=== PATIENT | male | born 1960 | race Caucasian/White ===

== ENCOUNTER 2017-07-05 14:29 | Inpatient (IN) | payer MEDICARE ==
[~2017-07-05] VITALS: Ht 188 cm; Wt 98.6 kg
[2017-07-05 14:48] VITALS: BP 121/73; PULSE 108; RESP 20; RESP 22; TEMP 98.1; O2SAT 95
[2017-07-05] MEDS ORDERED: FOLI400T PO (15:01)
[2017-07-05] MEDS ORDERED: ZANT150T2 PO (15:01)
[2017-07-05] MEDS ORDERED: FURO1TAB60 PO (15:01)
[2017-07-05] MEDS ORDERED: NADO20TA PO (15:01)
[2017-07-05] MEDS ORDERED: ASPI-516 PO (15:01)
[2017-07-05] MEDS ORDERED: SPIR50TA PO (15:01)
[2017-07-05] MEDS ORDERED: LAMO200T PO (15:01)
[2017-07-05] MEDS ORDERED: CHOL1CAP34 PO (15:01)
[2017-07-05] MEDS ORDERED: LACT10SO PO (15:01)
[2017-07-05] MEDS ORDERED: ZOFR4TAB PO (15:01)
[2017-07-05 15:10] VITALS: RESP 22; O2SAT 98
--- NOTE | 2017-07-05 15:14 | PD ---
HPI Chief Complaint: Altered Mental Status Time Seen by Provider: 14:49 Travel History International Travel<30 days: No Contact w/Intl Traveler<30days: No Traveled to known affect area: No History of Present Illness HPI [facility] for altered mental status. Duration one day. Severity is moderate to severe at times. He's had no fall or injury. No alleviating factors. Symptoms possibly exacerbated by his alcoholic cirrhosis. He does have history of elevated ammonia levels causing mental status change according to his who is at bedside. Patient is too confused to provide any history or review of systems. Was hospitalized for 2 solid months at [facility] up until 2 days ago when [facility] was [facility]. says his mental status yesterday was normal PFSH Past Medical History Diminished Hearing: No Gastrointestinal Disorders: Yes (CIRRHOSIS) Medical other: Yes (LIVER DISEASE) Tetanus Vaccination: < 5 Years Influenza Vaccination: Yes Past Surgical History Abdominal Surgery: Yes (HERNIA REPAIR) Social History Alcohol Use: No (HX ALCOHOL ABUSE ) Tobacco Use: No (30 YEARS AGO) Substance Use: Yes Allergies-Medications (Allergen,Severity, Reaction): Coded Allergies: No Known Allergies (Verified Allergy, Unknown, 07/05/17) Reported Meds & Prescriptions Reported Meds & Active Scripts Active Reported Lactulose Liq (Lactulose) 10 Gm/15 Ml Soln 30 Ml PO Q6H PRN Zantac (Ranitidine HCl) 150 Mg Tab 150 Mg PO DAILY Spironolactone 50 Mg Tab 50 Mg PO BIDPC Lamotrigine 200 Mg Tab 200 Mg PO HS Vitamin D3 (Cholecalciferol) 50,000 Unit Cap 50,000 Units PO Q7D Lasix (Furosemide) 40 Mg Tab 40 Mg PO DAILY Aspirin 81 Mg Chew 81 Mg PO DAILY Nadolol 20 Mg Tab 20 Mg PO DAILY Folic Acid 0.4 Mg Tab 1,000 Mcg PO DAILY Review of Systems General / Constitutional: No: Fever Eyes: No: Visual changes HENT: No: Headaches Cardiovascular: Positive: Edema, No: Chest Pain or Discomfort Respiratory: No: Shortness of Breath Gastrointestinal: No: Abdominal Pain Genitourinary: No: Dysuria Musculoskeletal: Positive: Weakness, Edema, No: Pain Skin: No Rash Neurologic: Positive: Weakness, Change in Mentation, Slurred Speech Psychiatric: No: Depression Endocrine: No: Polydipsia Hematologic/Lymphatic: No: Easy Bruising Physical Exam Narrative GENERAL: Well-nourished, well-developed patient in no apparent distress. SKIN: Focused skin assessment reveals no rash and nodules. Skin is Warm and dry. HEAD: Atraumatic. Normocephalic. EYES: Pupils equal and round. No scleral icterus. No injection or drainage. ENT: No nasal bleeding or discharge. Mucous membranes pink and moist. NECK: Trachea midline. No JVD. No meningeal signs CARDIOVASCULAR: Regular rate and rhythm. No murmur appreciated. RESPIRATORY: No accessory muscle use. Clear to auscultation. Breath sounds equal bilaterally. GASTROINTESTINAL: Abdomen soft, has large easily reducible hernia that is non- tender, nondistended. Hepatic and splenic margins not palpable. Has a small drainage tube in the right lower chest. MUSCULOSKELETAL: No obvious deformities. No clubbing. No cyanosis. Severe pitting edema of the entire legs bilateral and symmetric. He has edema of the penis NEUROLOGICAL: Awake but drowsy and lethargic appearing. No obvious cranial nerve deficits. Motor grossly within normal limits. Normal speech. PSYCHIATRIC: Sedated-appearing mood and flat affect; insight and judgment very poor . Data Data Last Documented VS Vital Signs Date Time Temp Pulse Resp B/P (MAP) Pulse Ox O2 Delivery O2 Flow Rate FiO2 07/05/17 16:29 97.9 83 20 121/73 (89) 99 Nasal Cannula 2.00 Orders Orders Ammonia (07/05/17 15:04) Complete Blood Count With Diff (07/05/17 15:04) Comprehensive Metabolic Panel (07/05/17 15:04) Thyroid Stimulating Hormone (07/05/17 15:04) Urinalysis - C+S If Indicated (07/05/17 15:04) Chest, Single Ap (07/05/17 15:04) Ct Brain W/O Iv Contrast(Rout) (07/05/17 15:04) Blood Glucose (07/05/17 15:04) Ecg Monitoring (07/05/17 15:04) Iv Access Insert/Monitor (07/05/17 15:04) Cath For Specimen (07/05/17 15:04) Oximetry (07/05/17 15:04) Sodium Chloride 0.9% Flush (Ns Flush) (07/05/17 15:15) Drug Screen, Random Urine (07/05/17 15:04) Alcohol (Ethanol) (07/05/17 15:04) Urine Culture (07/05/17 15:15) Labs Laboratory Tests Test 07/05/17 15:11 07/05/17 15:15 Ammonia 74 MCMOL/L White Blood Count 17.0 TH/MM3 Red Blood Count 2.70 MIL/MM3 Hemoglobin 10.4 GM/DL Hematocrit 31.1 % Mean Corpuscular Volume 115.3 FL Mean Corpuscular Hemoglobin 38.7 PG Mean Corpuscular Hemoglobin Concent 33.6 % Red Cell Distribution Width 16.7 % Platelet Count 134 TH/MM3 Mean Platelet Volume 7.8 FL Neutrophils (%) (Auto) 74.3 % Lymphocytes (%) (Auto) 9.4 % Monocytes (%) (Auto) 15.1 % Eosinophils (%) (Auto) 1.0 % Basophils (%) (Auto) 0.2 % Neutrophils # (Auto) 12.6 TH/MM3 Lymphocytes # (Auto) 1.6 TH/MM3 Monocytes # (Auto) 2.6 TH/MM3 Eosinophils # (Auto) 0.2 TH/MM3 Basophils # (Auto) 0.0 TH/MM3 CBC Comment AUTO DIFF Differential Total Cells Counted 100 Neutrophils % (Manual) 75 % Band Neutrophils % 12 % Lymphocytes % 3 % Monocytes % 8 % Eosinophils % 2 % Neutrophils # (Manual) 14.8 TH/MM3 Differential Comment FINAL DIFF MANUAL Toxic Granulation 1+ Platelet Estimate LOW Platelet Morphology Comment NORMAL Spherocytes 1+ Ovalocytes 2+ [place] Cells 1+ Acanthocytes 1+ Urine Color BROWN Urine Turbidity HAZY Urine pH 6.0 Urine Specific [place] 1.028 Urine Protein 30 mg/dL Urine Glucose (UA) NEG mg/dL Urine Ketones NEG mg/dL Urine Occult Blood SMALL Urine Nitrite NEG Urine Bilirubin MOD Urine Urobilinogen 2.0 MG/DL Urine Leukocyte Esterase SMALL Urine RBC 21 /hpf Urine WBC 9 /hpf Urine Squamous Epithelial Cells <1 /hpf Urine Hyaline Casts 76 /lpf Urine Mucus FEW /lpf Microscopic Urinalysis Comment CULTURE INDICATED Blood Urea Nitrogen 28 MG/DL Creatinine 1.06 MG/DL Random Glucose 137 MG/DL Total Protein 5.0 GM/DL Albumin 2.1 GM/DL Calcium Level 8.0 MG/DL Alkaline Phosphatase 276 U/L Aspartate Amino Transf (AST/SGOT) 63 U/L Alanine Aminotransferase (ALT/SGPT) 89 U/L Total Bilirubin 6.9 MG/DL Sodium Level 135 MEQ/L Potassium Level 4.4 MEQ/L Chloride Level 102 MEQ/L Carbon Dioxide Level 25.0 MEQ/L Anion Gap 8 MEQ/L Estimat Glomerular Filtration Rate 73 ML/MIN Thyroid Stimulating Hormone 3rd Gen 2.360 uIU/ML Ethyl Alcohol Level LESS THAN 3 MG/DL MDM Medical Decision Making Medical Screen Exam Complete: Yes Emergency Medical Condition: Yes Medical Record Reviewed: Yes Differential Diagnosis Hepatic encephalopathy, electrolyte abnormality, UTI Narrative Course I have reviewed the patient's electronic medical record. Reviewed his [facility] paperwork including medication list I've ordered extensive altered mental status workup IV placed CBC shows some leukocytosis Metabolic profile shows minor abnormalities LFTs show some minor elevations TSH is normal Alcohol level is negative Tox screen is negative Urinalysis will be cultured but not suspicious for the cause of his problems here Brain CT is negative I reviewed his chest x-ray shows a massive right sided pleural effusion which is his chronic. We are working on getting the proper drainage equipment for his indwelling drainage tube so we can drain some pleural effusion out of it. Ammonia level is 74 Patient's mental status is poor and he is far too altered for safe discharge However this is a flareup of a waxing and waning chronic issue He is DNR and has considered hospice in the past I reviewed with Dr. Stein who has evaluated the patient and will admit for altered mental status and hepatic encephalopathy and anasarca Diagnosis Primary Impression: Altered mental status, unspecified Qualified Codes: R41.0 - Disorientation, unspecified Additional Impressions: Acute hepatic encephalopathy Anasarca Admitting Information Admitting Physician Requests: Admit Joshua Marvin MD Jul 05, 2017 15:14
[2017-07-05] MEDS ORDERED: SODIUM CHLORIDE 0.9% FLUSH 10 ML FLUSH IV FLUSH PRN (15:15)
[2017-07-05 15:34] LABS: AUTOMATED NEUTROPHIL # 12.6 TH/MM3 (1.8-7.7); BASOPHIL % 0.2 % (0.0-2.0); EOSINOPHIL # 0.2 TH/MM3 (0-0.4); HEMATOCRIT 31.1 % (39.0-51.0); HEMOGLOBIN 10.4 GM/DL (13.0-17.0); LYMPH % 9.4 % (9.0-44.0); LYMPHOCYTE # 1.6 TH/MM3 (1.0-4.8); MEAN CELL VOLUME 115.3 FL (80.0-100.0); MEAN CORPUSCULAR HEMOGLOBIN 38.7 PG (27.0-34.0); MEAN CORPUSCULAR HGB CONC 33.6 % (32.0-36.0); MEAN PLATELET VOLUME 7.8 FL (7.0-11.0); MONO % 15.1 % (0.0-8.0); MONOCYTE # 2.6 TH/MM3 (0-0.9); NEUT % 74.3 % (16.0-70.0); PLATELET COUNT 134 TH/MM3 (150-450); RED CELL DISTRIBUTION WIDTH 16.7 % (11.6-17.2)
--- NOTE | 2017-07-05 15:47 | RADRPT ---
EXAM DATE/TIME: 07/05/2017 15:15 [facility] COMPARISON: No previous studies available for comparison. INDICATIONS : Short of breath MEDICAL HISTORY : Pneumonia SURGICAL HISTORY : Right chest tube ENCOUNTER: Initial ACUITY: 1 day PAIN SCORE: 0/10 LOCATION: chest FINDINGS: A single portable frontal view of the chest shows complete opacification of the right hemithorax. The heart is shifted slightly towards the patient's left. Left lung is clear. Bony structures are unrema rkable. CONCLUSION: Large right pleural effusion opacifying the entire right hemithorax. Daniel Reyes Jr., MD on July 05, 2017 at 15:35 Board Certified Radiologist. This report was verified electronically.
[2017-07-05 15:55] LABS: ALBUMIN 2.1 GM/DL (3.4-5.0); AST (GOT) 63 U/L (15-37); BLOOD UREA NITROGEN 28 MG/DL (7-18); CHLORIDE 102 MEQ/L (98-107); CREATININE 1.06 MG/DL (0.60-1.30); GLOMERULAR FILTRATION RATE 73 ML/MIN (>89); GLUCOSE,RANDOM 137 MG/DL (74-106); SODIUM (NA) 135 MEQ/L (136-145)
[2017-07-05 16:07] LABS: ALKALINE PHOSPHATASE 276 U/L (45-117); ALT (GPT) 89 U/L (12-78); TOTAL BILIRUBIN ADULT 6.9 MG/DL (0.2-1.0)
[2017-07-05 16:09] LABS: BANDS 12 % (0-6); LYMPHOCYTES 3 % (9-44); MONOCYTES 8 % (0-8); NEUTROPHIL # MANUAL DIFF 14.8 TH/MM3 (1.8-7.7); POLYS (SEG NEUTROPHILS) 75 % (16-70)
[2017-07-05 16:10] LABS: ACANTHOCYTES 1+ (NORMAL); BILIRUBIN, URINE MOD (NEG); BLOOD, URINE SMALL (NEG); BURR CELLS 1+ (NORMAL); GLUCOSE,URINE NEG (NEG); HYALINE CAST, URINE 76 /lpf (RARE); KETONE, URINE NEG (NEG); MUCUS URINE FEW /lpf (OCC); NITRITE,URINE NEG (NEG); OVALOCYTES 2+ (NORMAL); SPHEROCYTES 1+ (NORMAL); SQUAMOUS EPITHELIAL CELL URINE <1 /hpf (0-5); TOXIC GRANULATION 1+ (NORMAL); URINE LEUKOCYTE ESTERASE SMALL (NEG)
[2017-07-05 16:11] LABS: URINE COLOR BROWN (YELLW/STRAW)
[2017-07-05 16:29] VITALS: BP 121/73; PULSE 83; RESP 20; TEMP 97.9; O2SAT 99
--- NOTE | 2017-07-05 16:43 | RADRPT ---
EXAM DATE/TIME: 07/05/2017 16:13 [facility] COMPARISON: No previous studies available for comparison. INDICATIONS : Altered mental status RADIATION DOSE: 32.77 CTDIvol (mGy) MEDICAL HISTORY : Cirrhosis. SURGICAL HISTORY : Hernea repair ENCOUNTER: Initial ACUITY: 1 day PAIN SCALE: 0/10 LOCATION: cranial TECHNIQUE: Multiple contiguous axial images were obtained of the head. Using automated exposure control and adj ustment of the mA and/or kV according to patient size, radiation dose was kept as low as reasonably a chievable to obtain optimal diagnostic quality images. DICOM format image data is available electro nically for review and comparison. FINDINGS: CEREBRUM: The ventricles are normal for age. No evidence of midline shift, mass lesion, hemorrhage or acute in farction. No extra-axial fluid collections are seen. POSTERIOR FOSSA: The cerebellum and brainstem are intact. The 4th ventricle is midline. The cerebellopontine angle i s unremarkable. EXTRACRANIAL: The visualized portion of the orbits is intact. SKULL: The calvaria is intact. No evidence of skull fracture. CONCLUSION: No acute intracranial findings. Zack Javed MD on July 05, 2017 at 16:40 Board Certified Radiologist. This report was verified electronically.
[2017-07-05] MEDS ORDERED: NON-FORMULARY DRUG (Cholecalciferol (Vitamin D3) 50,000 UNITS) PO SCH (18:00)
[2017-07-05] MEDS ORDERED: LACTULOSE SYRUP 20 GM/30 ML CUP PO PRN (18:00)
[2017-07-05] MEDS ORDERED: NON-FORMULARY DRUG (Ondansetron (Zofran) 4 MG) PO PRN (18:00)
[2017-07-05] MEDS ORDERED: ONDANSETRON ODT 4 MG TAB PO PRN (18:15)
--- NOTE | 2017-07-05 18:20 | HHI.HP ---
HPI Service [facility] Hospitalists Primary Care Physician Non-Staff Admission Diagnosis AMS,hepatic encephalopathy,anasarca Chief Complaint: Confusion, attempted to harm self as SNF Travel History International Travel<30 Days: No Contact w/Intl Traveler <30 Da: No Traveled to Known Affected Are: No History of Present Illness This unfortunate 56-year-old male with end-stage liver disease due to alcoholic cirrhosis is sent from the assisted for altered mental status. Patient is somewhat confused due to underlying alcoholic encephalopathy and can't give a reliable history so history is obtained primarily from his who is at bedside and from review of outpatient records. I additionally discussed the case with Dr. Liborio Wright who has been seeing the patient at the assisted this week. Patient reportedly became somewhat violent today trying to harm himself and stated clearly that he wanted to and wanted to kill himself according to Dr. Wright. Patient threw himself against a wall and into the bed and onto the floor. His reportedly had to restrain him and Dr. Wright witnessed the events. Patient was therefore sent to the ER for further evaluation from a psychiatric standpoint and for medical stabilization as appropriate. He's had no fall or injury other than when he threw himself on the floor. There was no head injury or loss of consciousness. Review of outpatient records reveal the patient has been hospitalized multiple times in the last year mostly for hepatic encephalopathy and recurrent pleural effusion with most recent hospitalization lasting approximately a month and a half at [facility] in [place]. He was just discharged from that facility to a local assisted 2 days ago per report. Patient has periods of lucidity interspersed with periods of confusion and some apparent hallucinations. He reportedly has not tried to harm himself before but does realize that he is quite sick and that we may not have a lot to offer him from medical standpoint. As this with he and his both of whom acknowledged his serious condition. When I discussed hospice with them, the became somewhat agitated and tearful and stated that they had "gone down that road before" and did not want hospice at this point. I asked further for clarification and she stated that hospice had talked with her before but that her "had improved some" and so she wanted him to "have a chance at rehabilitation". reports that she is power of admitted attorneys and healthcare surrogate. Review of Systems ROS Limitations: Altered Mental Status Constitutional: COMPLAINS OF: Fatigue, Dizziness Endocrine: COMPLAINS OF: Heat/cold intolerance Respiratory: COMPLAINS OF: Shortness of breath Cardiovascular: COMPLAINS OF: Lower Extremity Edema Gastrointestinal: COMPLAINS OF: Diarrhea Musculoskeletal: COMPLAINS OF: Back pain Integumentary: COMPLAINS OF: Abnormal pigmentation Hematologic/lymphatic: COMPLAINS OF: Bruising Neurologic: COMPLAINS OF: Poor Balance Psychiatric: COMPLAINS OF: Confusion, Depression, Hallucinations, Agitation, Suicidal Ideation Past Family Social History Past Medical History Alcoholism with alcoholic cirrhosis and encephalopathy End-stage liver disease Ascites Chronic edema Esophageal varices Hepatic failure induced neuropathy Sleep apnea Portal hypertension Hyperammonemia Thrombocytopenia Recurrent right pleural effusion Vitamin D deficiency Large umbilical hernia Past Surgical History Ventral hernia repair EGD performed 2014 revealed grade 1 esophageal varices with no bleeding, diffuse gastritis Chest tube placement in latter 2016 Reported Medications Lactulose Liq (Lactulose) 10 Gm/15 Ml Soln 30 Ml PO Q6H PRN Zantac (Ranitidine HCl) 150 Mg Tab 150 Mg PO DAILY Spironolactone 50 Mg Tab 50 Mg PO BIDPC Lamotrigine 200 Mg Tab 200 Mg PO HS Vitamin D3 (Cholecalciferol) 50,000 Unit Cap 50,000 Units PO Q7D Lasix (Furosemide) 40 Mg Tab 40 Mg PO DAILY Aspirin 81 Mg Chew 81 Mg PO DAILY Nadolol 20 Mg Tab 20 Mg PO DAILY Folic Acid 0.4 Mg Tab 1,000 Mcg PO DAILY Allergies: Coded Allergies: No Known Allergies (Verified Allergy, Unknown, 07/05/17) Family History No bleeding disorders or liver failure. Social History Has not drank alcohol in about a month and a half but prior to that was quite a heavy drinker of vodka and various mixed drinks. Reports that he smoked for a short period is use but has not smoked in many years. This is confirmed with his have her outpatient records report that he still smokes and has been so for 1-1/2 years, this is his third marriage. 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 He is somewhat confused at times but at other times is quite lucid and jovial. SKIN: Jaundice, xerotic, ecchymosis noted on forearms and lower extremities. HEAD: Atraumatic. Normocephalic. No temporal or scalp tenderness. EYES: Pupils equal round and reactive. Extraocular motions intact. Positive scleral icterus. ENT: Nose without bleeding, purulent drainage or septal hematoma. Slight macroglossia with apparent Hyperemic tongue. Uvula midline. Airway patent. NECK: Trachea midline. No JVD or lymphadenopathy. Supple, nontender, no meningeal signs. CARDIOVASCULAR: Regular rate and rhythm without murmurs, gallops, or rubs. Distant heart sounds. RESPIRATORY: Diminished breath sounds on the right, good air movement in the lung field on the left with no wheeze or crackle. Chest tube in right chest wall noted. GASTROINTESTINAL: Abdomen soft, moderately distended with apparent ascites and large ventral hernia on the right. No palpable masses. No guarding. Bowel sounds present. MUSCULOSKELETAL: 2-3+ edema bilateral lower extremities up to the lower thigh. No joint tenderness, effusion, or edema noted. No calf tenderness. NEUROLOGICAL: Awake, follows simple commands, confused. Cranial nerves II through XII intact. Decreased sensation to light touch in the feet and lower extremities. Five out of 5 muscle strength in all muscle groups. Speech is somewhat low volume at times but appears clear. Laboratory Laboratory Tests Test 07/05/17 15:11 07/05/17 15:15 Ammonia 74 White Blood Count 17.0 Red Blood Count 2.70 Hemoglobin 10.4 Hematocrit 31.1 Mean Corpuscular Volume 115.3 Mean Corpuscular Hemoglobin 38.7 Mean Corpuscular Hemoglobin Concent 33.6 Red Cell Distribution Width 16.7 Platelet Count 134 Mean Platelet Volume 7.8 Neutrophils (%) (Auto) 74.3 Lymphocytes (%) (Auto) 9.4 Monocytes (%) (Auto) 15.1 Eosinophils (%) (Auto) 1.0 Basophils (%) (Auto) 0.2 Neutrophils # (Auto) 12.6 Lymphocytes # (Auto) 1.6 Monocytes # (Auto) 2.6 Eosinophils # (Auto) 0.2 Basophils # (Auto) 0.0 CBC Comment AUTO DIFF Differential Total Cells Counted 100 Neutrophils % (Manual) 75 Band Neutrophils % 12 Lymphocytes % 3 Monocytes % 8 Eosinophils % 2 Neutrophils # (Manual) 14.8 Differential Comment FINAL DIFF MANUAL Toxic Granulation 1+ Platelet Estimate LOW Platelet Morphology Comment NORMAL Spherocytes 1+ Ovalocytes 2+ Pérez Cells 1+ Acanthocytes 1+ Urine Color BROWN Urine Turbidity HAZY Urine pH 6.0 Urine Specific [place] 1.028 Urine Protein 30 Urine Glucose (UA) NEG Urine Ketones NEG Urine Occult Blood SMALL Urine Nitrite NEG Urine Bilirubin MOD Urine Urobilinogen 2.0 Urine Leukocyte Esterase SMALL Urine RBC 21 Urine WBC 9 Urine Squamous Epithelial Cells <1 Urine Hyaline Casts 76 Urine Mucus FEW Microscopic Urinalysis Comment CULTURE INDICATED Blood Urea Nitrogen 28 Creatinine 1.06 Random Glucose 137 Total Protein 5.0 Albumin 2.1 Calcium Level 8.0 Alkaline Phosphatase 276 Aspartate Amino Transf (AST/SGOT) 63 Alanine Aminotransferase (ALT/SGPT) 89 Total Bilirubin 6.9 Sodium Level 135 Potassium Level 4.4 Chloride Level 102 Carbon Dioxide Level 25.0 Anion Gap 8 Estimat Glomerular Filtration Rate 73 Thyroid Stimulating Hormone 3rd Gen 2.360 Ethyl Alcohol Level LESS THAN 3 Date/Time Source Procedure Growth Status 07/05/17 15:15 Urine Clean Catch Urine Culture Pending Received Result Diagram: 07/05/17 1515 07/05/17 1515 Imaging Last [address] 07/05/17 1504 Signed Impressions: Service Date/Time: June 16:13 - CONCLUSION: No acute intracranial findings. Zack Javed MD Chest X-Ray 07/05/17 1504 Signed Impressions: Service Date/Time: June 15:15 - CONCLUSION: Large right pleural effusion opacifying the entire right hemithorax. MD Penny Ballesteros Jr. VTE Risk Assessment Caprini VTE Risk Assessment: Mod/High Risk (score >= 2) VTE Pharm Contraindication: Coagulopathy,INR elevated Caprini Risk Assessment Model Point Value = 1 Point Value = 2 Point Value = 3 Point Value = 5 Age 41-60 Minor surgery BMI > 25 kg/m2 Swollen legs Varicose veins or History of unexplained or recurrent spontaneous Oral contraceptives or hormone replacement Sepsis (< 1 month) Serious lung disease, including pneumonia (< 1 month) Abnormal pulmonary function Acute myocardial infarction Congestive heart failure (< 1 month) History of inflammatory bowel disease Medical patient at bed rest Age 61-74 Arthroscopic surgery Major open surgery (> 45 min) Laparoscopic surgery (> 45 min) Malignancy Confined to bed (> 72 hours) Immobilizing plaster cast Central venous access Age >= 75 History of VTE Family history of VTE Factor V Leiden Prothrombin [id number] Lupus anticoagulant Anticardiolipin antibodies Elevated serum homocysteine Heparin-induced thrombocytopenia Other congenital or acquired thrombophilia Stroke (< 1 month) Elective arthroplasty Hip, pelvis, or leg fracture Acute spinal cord injury (< 1 month) Prophylaxis Regimen Total Risk Factor Score Risk Level Prophylaxis Regimen 0-1 Low Early ambulation 2 Moderate Order ONE of the following: *Sequential Compression Device (SCD) *Heparin 5000 units SQ BID 3-4 Higher Order ONE of the following medications: *Heparin 5000 units SQ TID *Enoxaparin/Lovenox 40 mg SQ daily (WT < 150 kg, CrCl > 30 mL/min) *Enoxaparin/Lovenox 30 mg SQ daily (WT < 150 kg, CrCl > 10-29 mL/min) *Enoxaparin/Lovenox 30 mg SQ BID (WT < 150 kg, CrCl > 30 mL/min) AND/OR *Sequential Compression Device (SCD) 5 or more Highest Order ONE of the following medications: *Heparin 5000 units SQ TID (Preferred with Epidurals) *Enoxaparin/Lovenox 40 mg SQ daily (WT < 150 kg, CrCl > 30 mL/min) *Enoxaparin/Lovenox 30 mg SQ daily (WT < 150 kg, CrCl > 10-29 mL/min) *Enoxaparin/Lovenox 30 mg SQ BID (WT < 150 kg, CrCl > 30 mL/min) AND *Sequential Compression Device (SCD) Assessment and Plan Problem List: (1) Alcoholic cirrhosis of liver with ascites ICD Codes: K70.31 - Alcoholic cirrhosis of liver with ascites Status: Chronic Plan: We'll attempt to diurese and control portal hypertension as systemic blood pressure allows. Discussed end-of-life issues with patient and his . refuses hospice at this point. She understands that we may not have much more medically to offer her . She is DNR. (2) Hepatic encephalopathy ICD Codes: K72.90 - Hepatic failure, unspecified without coma Status: Chronic Plan: Recurrent issue. As above. Try to lower ammonia level. (3) Pleural effusion associated with hepatic disorder ICD Codes: K76.9 - Liver disease, unspecified; J91.8 - Pleural effusion in other conditions classified elsewhere Status: Chronic Plan: Patient has chest tube in place. We'll have interventional radiology try to access as tube is apparently clog or not functional. (4) Suicidal ideation ICD Codes: R45.851 - Suicidal ideations Status: Acute Plan: Have psychiatry see the patient. He is quite weak. Reportedly tried to harm himself at group home facility today. (5) Altered mental status, unspecified ICD Codes: R41.82 - Altered mental status, unspecified Status: Acute Plan: Recurrent issue. Likely associated with hepatic encephalopathy and hyperammonemia. Continue lactulose. (6) Anasarca ICD Codes: R60.1 - Generalized edema Status: Chronic Plan: Continue medications. Attempt to diurese. May need albumin infusion with furosemide subsequent administration. Code Status DNR Discussed Condition With Patient, his , Dr. Wright and ER provider. Physician Certification 2 Midnight Certification Type: Admission for Inpatient Services Order for Inpatient Services The services are ordered in accordance with Medicare regulations or non- Medicare payer requirements, as applicable. In the case of services not specified as inpatient-only, they are appropriately provided as inpatient services in accordance with the 2-midnight benchmark. Estimated LOS (days): 3 days is the estimated time the patient will need to remain in the hospital, assuming treatment plan goals are met and no additional complications. Post-Hospital Plan: Not yet determined Problem Qualifiers (1) Altered mental status, unspecified: Qualified Codes: R41.0 - Disorientation, unspecified Dada Stein MD PhD Jul 05, 2017 18:20
[2017-07-05] MEDS: SPIRONOLACTONE 50 MG TAB PO SCH (18:22)
[2017-07-05 18:23] VITALS: BP 116/77; PULSE 108; RESP 22; TEMP 98; O2SAT 100
[2017-07-05] MEDS: cefTRIAXone INJ 1,000 MG in SODIUM CHLORIDE 0.9% INJ 100 ML IV SCH (19:55)
[2017-07-05] MEDS: lamoTRIgine 100 MG TAB PO SCH (22:09)
[2017-07-05] MEDS: metroNIDAZOLE 500 MG TAB PO SCH (22:10)
[2017-07-05 23:50] VITALS: BP 109/72; PULSE 106; RESP 16; O2SAT 98
[2017-07-06] VITALS (7 sets, daily range): BP systolic 95–127; BP diastolic 45–74; PULSE 80–109; RESP 14–20; TEMP 96.2–98.2; O2SAT 92–100
[2017-07-06] MEDS: metroNIDAZOLE 500 MG TAB PO SCH ×3 (05:19→21:58)
[2017-07-06 06:41] LABS: ALT (GPT) 76 U/L (12-78); AST (GOT) 53 U/L (15-37); BICARBONATE 28.8 MEQ/L (21.0-32.0); BLOOD UREA NITROGEN 24 MG/DL (7-18); CALCIUM 8.5 MG/DL (8.5-10.1); CHLORIDE 100 MEQ/L (98-107); CREATININE 1.04 MG/DL (0.60-1.30); GLOMERULAR FILTRATION RATE 74 ML/MIN (>89); GLUCOSE,RANDOM 91 MG/DL (74-106); SODIUM (NA) 135 MEQ/L (136-145)
[2017-07-06 06:44] LABS: ALKALINE PHOSPHATASE 242 U/L (45-117); TOTAL BILIRUBIN ADULT 6.9 MG/DL (0.2-1.0); TOTAL PROTEIN 4.6 GM/DL (6.4-8.2)
[2017-07-06 06:47] LABS: AUTOMATED NEUTROPHIL # 10.6 TH/MM3 (1.8-7.7); BASOPHIL % 0.3 % (0.0-2.0); EOSINOPHIL # 0.1 TH/MM3 (0-0.4); HEMATOCRIT 28.8 % (39.0-51.0); HEMOGLOBIN 9.8 GM/DL (13.0-17.0); LYMPH % 10.3 % (9.0-44.0); LYMPHOCYTE # 1.5 TH/MM3 (1.0-4.8); MEAN CELL VOLUME 114.4 FL (80.0-100.0); MEAN CORPUSCULAR HGB CONC 34.1 % (32.0-36.0); MONOCYTE # 2.2 TH/MM3 (0-0.9); NEUT % 73.4 % (16.0-70.0); PLATELET COUNT 122 TH/MM3 (150-450); RED BLOOD COUNT 2.52 MIL/MM3 (4.50-5.90); RED CELL DISTRIBUTION WIDTH 16.5 % (11.6-17.2); WHITE BLOOD COUNT 14.5 TH/MM3 (4.0-11.0)
[2017-07-06 08:38] LABS: ACANTHOCYTES OCC (NORMAL); BANDS 15 % (0-6); MONOCYTES 7 % (0-8); MYELOCYTES 1 % (0-0); NEUTROPHIL # MANUAL DIFF 13.5 TH/MM3 (1.8-7.7); POLYS (SEG NEUTROPHILS) 77 % (16-70)
[2017-07-06] MEDS ORDERED: NON-FORMULARY DRUG (Ranitidine (Zantac) 150 MG) PO SCH (09:00)
[2017-07-06] MEDS ORDERED: ERGOCALCIFEROL (VIT D2) 50,000 UNIT CAP PO SCH (09:00)
[2017-07-06] MEDS: FAMOTIDINE 20 MG TAB PO SCH (09:00)
[2017-07-06] MEDS: NADOLOL 20 MG TAB PO SCH (10:04)
[2017-07-06] MEDS: FOLIC ACID 1 MG TAB PO SCH (10:05)
[2017-07-06] MEDS: FUROSEMIDE 40 MG TAB PO SCH (10:05)
[2017-07-06] MEDS: SPIRONOLACTONE 50 MG TAB PO SCH ×2 (10:05→17:46)
--- NOTE | 2017-07-06 11:12 | HHI.PR ---
Subjective Remarks Pts at bedside feels that the pt is at his baseline mental status He complains of continuous drainage from the chest tube that was placed at [facility] 1 week ago states that he has had recurrent pleural effusion for the last 6 months, felt to be related to his cirrhosis per the pts The drainage catheter was placed in order to have continuous drainage from the right chest. Pt was [facility] local [facility] with reported suicidal ideation but reports that the pt is just frustrated with his multiple medical conditions that he has been dealing with and wanted to "take control over something" so he refused to do PT or work with the nursing staff yesterday Pt was recently placed back on diuretics which were reportedly held due to low BP and concerns about his kidneys according to the pts . Objective Vitals Vital Signs Date Time Temp Pulse Resp B/P (MAP) Pulse Ox O2 Delivery O2 Flow Rate FiO2 07/06/17 08:00 97.8 99 18 127/67 (87) 99 07/06/17 04:00 96.7 109 15 103/65 (78) 99 07/06/17 00:15 07/06/17 00:00 96.2 107 14 126/73 (90) 98 07/05/17 23:50 106 16 109/72 (84) 98 Nasal Cannula 2.00 07/05/17 18:23 98.0 108 22 116/77 (90) 100 Nasal Cannula 2.00 07/05/17 16:29 97.9 83 20 121/73 (89) 99 Nasal Cannula 2.00 07/05/17 15:10 22 98 Nasal Cannula 2.00 07/05/17 14:50 108 22 98 Nasal Cannula 2.00 07/05/17 14:48 98.1 108 22 121/73 (89) 95 Result Diagram: 07/06/17 0547 07/06/17 0547 Other Results Laboratory Tests Test 07/05/17 15:11 07/05/17 15:15 07/06/17 05:47 Ammonia 74 MCMOL/L 26 MCMOL/L White Blood Count 17.0 TH/MM3 14.5 TH/MM3 Red Blood Count 2.70 MIL/MM3 2.52 MIL/MM3 Hemoglobin 10.4 GM/DL 9.8 GM/DL Hematocrit 31.1 % 28.8 % Mean Corpuscular Volume 115.3 FL 114.4 FL Mean Corpuscular Hemoglobin 38.7 PG 39.0 PG Mean Corpuscular Hemoglobin Concent 33.6 % 34.1 % Red Cell Distribution Width 16.7 % 16.5 % Platelet Count 134 TH/MM3 122 TH/MM3 Mean Platelet Volume 7.8 FL 8.0 FL Neutrophils (%) (Auto) 74.3 % 73.4 % Lymphocytes (%) (Auto) 9.4 % 10.3 % Monocytes (%) (Auto) 15.1 % 15.0 % Eosinophils (%) (Auto) 1.0 % 1.0 % Basophils (%) (Auto) 0.2 % 0.3 % Neutrophils # (Auto) 12.6 TH/MM3 10.6 TH/MM3 Lymphocytes # (Auto) 1.6 TH/MM3 1.5 TH/MM3 Monocytes # (Auto) 2.6 TH/MM3 2.2 TH/MM3 Eosinophils # (Auto) 0.2 TH/MM3 0.1 TH/MM3 Basophils # (Auto) 0.0 TH/MM3 0.0 TH/MM3 CBC Comment AUTO DIFF AUTO DIFF Differential Total Cells Counted 100 100 Neutrophils % (Manual) 75 % 77 % Band Neutrophils % 12 % 15 % Lymphocytes % 3 % Monocytes % 8 % 7 % Eosinophils % 2 % Neutrophils # (Manual) 14.8 TH/MM3 13.5 TH/MM3 Differential Comment FINAL DIFF MANUAL FINAL DIFF MANUAL Toxic Granulation 1+ Platelet Estimate LOW LOW Platelet Morphology Comment NORMAL NORMAL Spherocytes 1+ Ovalocytes 2+ Pérez Cells 1+ Acanthocytes 1+ OCC Urine Color BROWN Urine Turbidity HAZY Urine pH 6.0 Urine Specific [place] 1.028 Urine Protein 30 mg/dL Urine Glucose (UA) NEG mg/dL Urine Ketones NEG mg/dL Urine Occult Blood SMALL Urine Nitrite NEG Urine Bilirubin MOD Urine Urobilinogen 2.0 MG/DL Urine Leukocyte Esterase SMALL Urine RBC 21 /hpf Urine WBC 9 /hpf Urine Squamous Epithelial Cells <1 /hpf Urine Hyaline Casts 76 /lpf Urine Mucus FEW /lpf Microscopic Urinalysis Comment CULTURE INDICATED Blood Urea Nitrogen 28 MG/DL 24 MG/DL Creatinine 1.06 MG/DL 1.04 MG/DL Random Glucose 137 MG/DL 91 MG/DL Total Protein 5.0 GM/DL 4.6 GM/DL Albumin 2.1 GM/DL 2.0 GM/DL Calcium Level 8.0 MG/DL 8.5 MG/DL Alkaline Phosphatase 276 U/L 242 U/L Aspartate Amino Transf (AST/SGOT) 63 U/L 53 U/L Alanine Aminotransferase (ALT/SGPT) 89 U/L 76 U/L Total Bilirubin 6.9 MG/DL 6.9 MG/DL Sodium Level 135 MEQ/L 135 MEQ/L Potassium Level 4.4 MEQ/L 4.3 MEQ/L Chloride Level 102 MEQ/L 100 MEQ/L Carbon Dioxide Level 25.0 MEQ/L 28.8 MEQ/L Anion Gap 8 MEQ/L 6 MEQ/L Estimat Glomerular Filtration Rate 73 ML/MIN 74 ML/MIN Thyroid Stimulating Hormone 3rd Gen 2.360 uIU/ML Urine Opiates Screen NEG Urine Barbiturates Screen NEG Urine Amphetamines Screen NEG Urine Benzodiazepines Screen POS Urine Cocaine Screen NEG Urine Cannabinoids Screen NEG Ethyl Alcohol Level LESS THAN 3 MG/DL Myelocytes 1 % Imaging Last [address] 07/05/17 1504 Signed Impressions: Service Date/Time: June 16:13 - CONCLUSION: No acute intracranial findings. Zack Javed MD Chest X-Ray 07/05/17 1504 Signed Impressions: Service Date/Time: June 15:15 - CONCLUSION: Large right pleural effusion opacifying the entire right hemithorax. Daniel Reyes Jr., MD Objective Remarks General: NAD, Awake and alert and oriented to person and place Chest: No air movement in the right chest Cardiac: Regular, tachy Abd: +BS, soft, distended, +Ascites, umbilical hernia noted Ext: Anasarca and edematous upper and lower extremities A/P Problem List: (1) Alcoholic cirrhosis of liver with ascites ICD Codes: K70.31 - Alcoholic cirrhosis of liver with ascites Status: Chronic Plan: - Pt is a 56 y/o WM with alcoholic ESLD, portal HTN, hepatic encephalopathy, recurrent ascites, recurrent pleural effusion, thrombocytopenia, and BRENT - Pt was sent over from a local rehab center for AMS and suicidal ideation - Pt with significant anasarca/edema - He is on Aldactone 50mg po BID and Lasix 40mg po daily - Attempt to diurese and control portal hypertension as systemic blood pressure allows. - End-of-life issues were previously discussed with patient and his . refuses hospice at this point. She understands that we may not have much more medically to offer her . - We will give albumin infusion prior to furosemide administration. - Pt is a DNR. (2) Hepatic encephalopathy ICD Codes: K72.90 - Hepatic failure, unspecified without coma Status: Chronic Plan: - Recurrent issue. - Pt is on Lactulose 30mL Q6H PRN - His Ammonia level came down from 74 to 26 this morning - Change lactulose to 30mL daily (3) Pleural effusion associated with hepatic disorder ICD Codes: K76.9 - Liver disease, unspecified; J91.8 - Pleural effusion in other conditions classified elsewhere Status: Chronic Plan: - Pt has recurrent pleural effusions related to his liver cirrhosis - Patient had chest tube placed approximately 1 week ago per the pts - They were supposed to drain 600mL out of this daily - The pt has fluid consistently draining out from around the tubes insertion site - Interventional radiology has been consulted to try to access the tube to try to continue drainage - CXR at admission noted large right pleural effusion opacifying the entire right hemithorax. (4) Suicidal ideation ICD Codes: R45.851 - Suicidal ideations Status: Acute Plan: - Psychiatry has been consulted. - Pt reportedly tried to harm himself at [facility] facility (5) Altered mental status, unspecified ICD Codes: R41.82 - Altered mental status, unspecified Status: Acute Plan: - Improved today, this is a recurrent issue. -Likely associated with hepatic encephalopathy and hyperammonemia. - Continue lactulose. (6) Anasarca ICD Codes: R60.1 - Generalized edema Status: Chronic Plan: - See above Problem Qualifiers (1) Altered mental status, unspecified: Qualified Codes: R41.0 - Disorientation, unspecified Simi Fonseca Jul 06, 2017 11:12
--- NOTE | 2017-07-06 12:40 | PD.PSY.CON ---
Provisional Diagnosis Admission Date Jul 05, 2017 at 17:46 [place] I. Adjustment disorder with depressed mood, delirium due to another underlying medical condition, alcohol use disorder in remission [place] II. Deferred [place] III. 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 Patient is somewhat confused due to underlying alcoholic encephalopathy and can't give a reliable history so history is obtained primarily from his who is at bedside and from review of outpatient records. I additionally discussed the case with Dr. Liborio Wright who has been seeing the patient at the prison this week. Patient reportedly became somewhat violent today trying to harm himself and stated clearly that he wanted to and wanted to kill himself according to Dr. Wright. Patient threw himself against a wall and into the bed and onto the floor. His reportedly had to restrain him and Dr. Wright witnessed the events. Patient was therefore sent to the ER for further evaluation from a psychiatric standpoint and for medical stabilization as appropriate. He's had no fall or injury other than when he threw himself on the floor. Patient is being admitted due to anasarca, pleural effusion, hepatic encephalopathy. Consulted to psychiatry due to suicidal ideation. Chart was reviewed. Case was discussed with nursing charge , collateral information was obtained from his at bedside. On psychiatric evaluation the patient is calm, cooperative and pleasant. He does have some level of incoherent speech, confusion and slowed thought processing. But at the moment of this evaluation the patient is a baseline, confirmed, completely oriented 3, logical, coherent and relevant. He reports that in the last weeks he has been in and out of confusion and altered mental status. He reports that he knows that he has been saying things "that are not the things that I think and are not part of my life philosophy and Ethics". He says that he does not have any reason to commit suicide or for wanting to , but several reasons to live and fight for his life. He mentioned that he has 3 adult kids that he loves, his "and I still enjoy fishing and many other things on my life". He reports okay mood, he confirmed that he has been struggling very hard with his current disease, "but in general I am positive and hopeful". He denies suicidal and homicidal ideation, he denies visual and auditory hallucinations. No paranoia, no loosening of associations, no agitation, no aggressive behavior, no restlessness no gibran are present at the time of this evaluation. Patient denies the use of illegal drugs, he says that he is an alcoholic in remission, he has been sober for about 3 months. His Natalie Robert. He states that the patient is a baseline at this moment. She says that she does not have any safety concern about the safety of the patient, or any concern about the patient thoughts of harming himself. She clarifies that she is is strongly conditions that this suicidal statement were made in the context of altered mental status and confusion. Review of Systems Constitutional: DENIES: Diaphoretic episodes, Fatigue, Fever, Weight gain, Weight loss, Chills, Dizziness, Change in appetite, Night Sweats Endocrine: DENIES: Heat/cold intolerance, Polydipsia, Polyuria, Polyphagia Eyes: DENIES: Blurred vision, Diplopia, Eye inflammation, Eye pain, Vision loss , Photosensitivity, Double Vision Ears, nose, mouth, throat: DENIES: Tinnitus, Hearing loss, Vertigo, Nasal discharge, Oral lesions, Throat pain, Hoarseness, Ear Pain, Running Nose, Epistaxis, Sinus Pain, Toothache, Odynophagia Respiratory: DENIES: Apneas, Cough, Snoring, Wheezing, Hemoptysis, Sputum production, Shortness of breath Cardiovascular: DENIES: Chest pain, Palpitations, Syncope, Dyspnea on Exertion , PND, Lower Extremity Edema, Orthopnea, Claudication Gastrointestinal: DENIES: Abdominal pain, Black stools, Bloody stools, Constipation, Diarrhea, Nausea, Vomiting, Difficulty Swallowing, Anorexia Genitourinary: DENIES: Sexual dysfunction, Urinary frequency, Urinary incontinence, Urgency, Hematuria, Dysuria, Nocturia, Penile Discharge, Testicular Pain, Testicular Swelling Musculoskeletal: DENIES: Joint pain, Muscle aches, Stiffness, Joint Swelling, Back pain, Neck pain Integumentary: DENIES: Abnormal pigmentation, Nail changes, Pruritus, Rash Hematologic/lymphatic: DENIES: Bruising, Lymphadenopathy Immunologic/allergic: DENIES: Eczema, Urticaria Neurologic: DENIES: Abnormal gait, Headache, Localized weakness, Paresthesias, Seizures, Speech Problems, Tremor, Poor Balance Psychiatric: DENIES: Anxiety, Confusion, Mood changes, Depression, Hallucinations, Agitation, Suicidal Ideation, Homicidal Ideation, Delusions Past Family Social History Coded Allergies: No Known Allergies (Verified Allergy, Unknown, 07/05/17) Reported Medications Ondansetron (Zofran) 4 Mg Tab, 4 MG PO Q8HR Y for NAUSEA OR VOMITING, TAB 0 Refills 07/05/17 Lactulose Liq (Lactulose Liq) 10 Gm/15 Ml Soln, 30 ML PO Q6H Y for Nutritional Supplement, ML 0 Refills 07/05/17 Ranitidine (Zantac) 150 Mg Tab, 150 MG PO DAILY for Reduce Stomach Acid, #30 TAB 0 Refills 07/05/17 Spironolactone (Spironolactone) 50 Mg Tab, 50 MG PO BIDPC, #60 TAB 0 Refills 07/05/17 Lamotrigine (Lamotrigine) 200 Mg Tab, 200 MG PO HS for Control Seizures, #30 TAB 0 Refills 07/05/17 Cholecalciferol (Vitamin D3) 50,000 Unit Cap, 21500 UNITS PO Q7D for Nutritional Supplement, #30 CAP 0 Refills 07/05/17 Furosemide (Lasix) 40 Mg Tab, 40 MG PO DAILY, #30 TAB 0 Refills 07/05/17 Aspirin (Aspirin) 81 Mg Chew, 81 MG PO DAILY, TAB 0 Refills 07/05/17 Nadolol (Nadolol) 20 Mg Tab, 20 MG PO DAILY, #30 TAB 0 Refills 07/05/17 Folic Acid (Folic Acid) 0.4 Mg Tab, 1000 MCG PO DAILY for Nutritional Supplement , TAB 0 Refills 07/05/17 Current Medications Medications (Trade) Dose Ordered Sig/Caitlin Route Start Time Stop Time Status Last Admin (NS Flush) 2 ml UNSCH PRN IV FLUSH 07/05/17 15:15 07/05/17 15:32 (Folate) 1 mg DAILY PO 07/06/17 09:00 07/06/17 10:05 (Lasix) 40 mg DAILY PO 07/06/17 09:00 07/06/17 10:05 (LaMICtal) 200 mg HS PO 07/05/17 21:00 07/05/17 22:09 (Corgard) 20 mg DAILY PO 07/06/17 09:00 07/06/17 10:04 (Aldactone) 50 mg BIDPC PO 07/05/17 18:00 07/06/17 10:05 (Pepcid) 20 mg DAILY PO 07/06/17 09:00 07/06/17 09:00 (Zofran Odt) 4 mg Q8H PRN PO 07/05/17 18:15 Ceftriaxone Sodium 1000 mg/ Sodium Chloride 100 ml @ 200 mls/hr Q24H IV 07/05/17 20:00 07/05/17 19:55 (Flagyl) 500 mg Q8HR PO 07/05/17 22:00 07/06/17 05:19 (Drisdol) 50,000 units Q7D PO 07/06/17 09:00 07/06/17 10:04 (Lactulose Liq) 30 ml DAILY PO 07/07/17 09:00 Albumin Human 100 ml @ 60 mls/hr Q12H IV 07/06/17 13:00 Family Psych History He has a son who is institutionalized with autism Social History Patient was born and raised in [facility], he lives with his in [place], he has 3 adult kids, 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 2) Family support Physical Exam No tremors, no EPS, no stiffness, psychomotor retardation noted Vital Signs Vital Signs Date Time Temp Pulse Resp B/P (MAP) Pulse Ox O2 Delivery O2 Flow Rate FiO2 07/06/17 08:00 97.8 99 18 127/67 (87) 99 07/05/17 23:50 Nasal Cannula 2.00 I/O 07/06/17 07/06/17 07/07/17 08:00 16:00 00:00 Output Total 300 ml Balance -300 ml Lab Results Test 07/05/17 15:11 07/05/17 15:15 07/06/17 05:47 Ammonia 74 MCMOL/L 26 MCMOL/L White Blood Count 17.0 TH/MM3 14.5 TH/MM3 Red Blood Count 2.70 MIL/MM3 2.52 MIL/MM3 Hemoglobin 10.4 GM/DL 9.8 GM/DL Hematocrit 31.1 % 28.8 % Mean Corpuscular Volume 115.3 FL 114.4 FL Mean Corpuscular Hemoglobin 38.7 PG 39.0 PG Mean Corpuscular Hemoglobin Concent 33.6 % 34.1 % Red Cell Distribution Width 16.7 % 16.5 % Platelet Count 134 TH/MM3 122 TH/MM3 Mean Platelet Volume 7.8 FL 8.0 FL Neutrophils (%) (Auto) 74.3 % 73.4 % Lymphocytes (%) (Auto) 9.4 % 10.3 % Monocytes (%) (Auto) 15.1 % 15.0 % Eosinophils (%) (Auto) 1.0 % 1.0 % Basophils (%) (Auto) 0.2 % 0.3 % Neutrophils # (Auto) 12.6 TH/MM3 10.6 TH/MM3 Lymphocytes # (Auto) 1.6 TH/MM3 1.5 TH/MM3 Monocytes # (Auto) 2.6 TH/MM3 2.2 TH/MM3 Eosinophils # (Auto) 0.2 TH/MM3 0.1 TH/MM3 Basophils # (Auto) 0.0 TH/MM3 0.0 TH/MM3 CBC Comment AUTO DIFF AUTO DIFF Differential Total Cells Counted 100 100 Neutrophils % (Manual) 75 % 77 % Band Neutrophils % 12 % 15 % Lymphocytes % 3 % Monocytes % 8 % 7 % Eosinophils % 2 % Neutrophils # (Manual) 14.8 TH/MM3 13.5 TH/MM3 Differential Comment FINAL DIFF MANUAL FINAL DIFF MANUAL Toxic Granulation 1+ Platelet Estimate LOW LOW Platelet Morphology Comment NORMAL NORMAL Spherocytes 1+ Ovalocytes 2+ Freer Cells 1+ Acanthocytes 1+ OCC Urine Color BROWN Urine Turbidity HAZY Urine pH 6.0 Urine Specific [place] 1.028 Urine Protein 30 mg/dL Urine Glucose (UA) NEG mg/dL Urine Ketones NEG mg/dL Urine Occult Blood SMALL Urine Nitrite NEG Urine Bilirubin MOD Urine Urobilinogen 2.0 MG/DL Urine Leukocyte Esterase SMALL Urine RBC 21 /hpf Urine WBC 9 /hpf Urine Squamous Epithelial Cells <1 /hpf Urine Hyaline Casts 76 /lpf Urine Mucus FEW /lpf Microscopic Urinalysis Comment CULTURE INDICATED Blood Urea Nitrogen 28 MG/DL 24 MG/DL Creatinine 1.06 MG/DL 1.04 MG/DL Random Glucose 137 MG/DL 91 MG/DL Total Protein 5.0 GM/DL 4.6 GM/DL Albumin 2.1 GM/DL 2.0 GM/DL Calcium Level 8.0 MG/DL 8.5 MG/DL Alkaline Phosphatase 276 U/L 242 U/L Aspartate Amino Transf (AST/SGOT) 63 U/L 53 U/L Alanine Aminotransferase (ALT/SGPT) 89 U/L 76 U/L Total Bilirubin 6.9 MG/DL 6.9 MG/DL Sodium Level 135 MEQ/L 135 MEQ/L Potassium Level 4.4 MEQ/L 4.3 MEQ/L Chloride Level 102 MEQ/L 100 MEQ/L Carbon Dioxide Level 25.0 MEQ/L 28.8 MEQ/L Anion Gap 8 MEQ/L 6 MEQ/L Estimat Glomerular Filtration Rate 73 ML/MIN 74 ML/MIN Thyroid Stimulating Hormone 3rd Gen 2.360 uIU/ML Urine Opiates Screen NEG Urine Barbiturates Screen NEG Urine Amphetamines Screen NEG Urine Benzodiazepines Screen POS Urine Cocaine Screen NEG Urine Cannabinoids Screen NEG Ethyl Alcohol Level LESS THAN 3 MG/DL Myelocytes 1 % Date/Time Source Procedure Growth Status 07/05/17 15:15 Urine Clean Catch Urine Culture - Preliminary NO GROWTH IN 24 HOURS. Resulted Mental Status Examination Appearance: Appropriate Consciousness: Alert Orientation: x4 Motor Activity: Normal gait Speech: Unremarkable Language: Adequate Fund of Knowledge: Adequate Attention and Concentration: Adequate Memory: Unremarkable Mood: Appropriate Affect: Appropriate Thought Process & Associations: Intact Thought Content: Appropriate Hallucination Type: None Delusion Type: None Suicidal Ideation: No Suicidal Plan: No Suicidal Intention: No Homicidal Ideation: No Homicidal Plan: No Homicidal Intention: No Insight: Adequate Judgment: Adequate Assessment & Plan Problem List: (1) Adjustment disorder with depressed mood ICD Codes: F43.21 - Adjustment disorder with depressed mood Assessment & Plan: On psychiatric evaluation today the patient does not present any significant, acute or concerning evidence of subjective or objective depressive symptoms, anxiety, gibran or psychosis. He denies suicidal and homicidal ideation, he denies visual and auditory hallucinations. Patient is fully oriented 3, logical, coherent and relevant at this moment. No agitation, no aggressive behavior, no loosening of associations, gibran, attention deficit or fluctuation of consciousness present during this evaluation. Recent suicidal statement made by the patient seems to be the result of acting mental status and mood lability secondary to the delirium that the patient is a high risk due to his underlying medical condition, specifically hepatic insufficiency/hepatic encephalopathy. Patient does not meet criteria for involuntary psychiatric admission at this moment. I am not recommending any psychotropic at this moment. Patient and were both wildly psychoeducation, brief supportive psychotherapy also provided. Consult appreciated. Assessment & Plan Estimated LOS: Afshin Fenton MD Jul 06, 2017 12:40
[2017-07-06] MEDS: ALBUMIN 25% INJ 100 ML IV SCH (13:41)
--- NOTE | 2017-07-06 16:20 | RADRPT ---
EXAM DATE/TIME: 07/06/2017 00:00 [place] COMPARISON: No previous studies available for comparison. INDICATIONS : Patient has non-functioning tunneled drain catheter in Right side chest. MEDICAL HISTORY : Alcoholism with alcoholic cirrhosis and encephalopathy End-stage liver disease Ascites Chronic edema Esophageal varices Hepatic failure induced neuropathy Sleep apnea Portal hypertension Hyperammonemia Thrombocytopenia Recurrent right pleural effusion Vitamin D deficiency Large umbilical hernia SURGICAL HISTORY : Ventral hernia, Right side tunnel chest tube ENCOUNTER: Initial ACUITY: >1 year PAIN SCORE: 6/10 LOCATION: Right chest IMAGE SERIES: CONTRAST: PROCEDURE : 1. Pleural drainage catheter repair. The risks, benefits and alternatives to the procedure were explained and verbal and written consent w as obtained. The site was prepped in sterile fashion. Full sterile technique was used, including ca p, mask, sterile gloves and gown and a large sterile sheet. Hand hygiene and 2% chlorhexidine and Be tadine was utilized per protocol for cutaneous antisepsis with appropriate dry time for site. The patient's existing drain was evaluated. The drain of the distal aspect of the appeared clogged. T his was replaced with a new ASPIRA drain valve. The bag was placed to gravity drain. There was immedi ate return of approximately 4 L of fluid. The patient tolerated it well. CONCLUSION: 1. The catheter is draining well. A new valve was placed on the end of the tubing. 4 L of fluid was r emoved. Bahman Alegre MD on July 06, 2017 at 16:15 Board Certified Radiologist. This report was verified electronically.
[2017-07-06] MEDS: cefTRIAXone INJ 1,000 MG in SODIUM CHLORIDE 0.9% INJ 100 ML IV SCH (21:58)
[2017-07-06] MEDS: lamoTRIgine 100 MG TAB PO SCH (21:58)
[2017-07-07 00:10] VITALS: BP 98/51; PULSE 83; RESP 19; TEMP 98.1; O2SAT 94
[2017-07-07] MEDS: ALBUMIN 25% INJ 100 ML IV SCH ×2 (00:50→13:32)
[2017-07-07 04:39] VITALS: BP 115/56; PULSE 76; RESP 18; TEMP 99; O2SAT 93
[2017-07-07] MEDS: metroNIDAZOLE 500 MG TAB PO SCH ×2 (06:29→13:32)
[2017-07-07 08:00] VITALS: BP 107/56; PULSE 87; RESP 16; TEMP 97.9; O2SAT 94
[2017-07-07] MEDS: FUROSEMIDE 40 MG TAB PO SCH (08:24)
[2017-07-07] MEDS: FOLIC ACID 1 MG TAB PO SCH (08:24)
[2017-07-07] MEDS: LACTULOSE SYRUP 20 GM/30 ML CUP PO SCH (08:24)
[2017-07-07] MEDS: SPIRONOLACTONE 50 MG TAB PO SCH ×2 (08:24→18:07)
[2017-07-07] MEDS: FAMOTIDINE 20 MG TAB PO SCH (08:24)
[2017-07-07] MEDS: NADOLOL 20 MG TAB PO SCH (08:24)
[2017-07-07] MEDS ORDERED: Lactulose Liq PO (09:50)
--- NOTE | 2017-07-07 09:51 | HHI.DCPOC ---
Discharge Care Plan Diagnosis: (1) Pleural effusion associated with hepatic disorder Goals to Promote Your Health * To prevent worsening of your condition and complications * To maintain your health at the optimal level Directions to Meet Your Goals Take your medications as prescribed Follow your dietary instruction Follow activity as directed Keep your appointments as scheduled Take your immunizations and boosters as scheduled If your symptoms worsen call your PCP, if no PCP go to Urgent Care Center or Emergency Room Smoking is Dangerous to Your Health. Avoid second hand smoke Call the 24-hour hour crisis hotline for domestic abuse at Shin Knight MD Jul 07, 2017 09:51
--- NOTE | 2017-07-07 09:55 | HHI.PR ---
Subjective Remarks more alert eager to get back to rehab. Objective Vitals heart reg lung diminished abd s/nt ext edema Vital Signs Date Time Temp Pulse Resp B/P (MAP) Pulse Ox O2 Delivery O2 Flow Rate FiO2 07/07/17 08:00 97.9 87 16 107/56 (73) 94 07/07/17 04:39 99.0 76 18 115/56 (75) 93 07/07/17 00:10 98.1 83 19 98/51 (67) 94 07/06/17 20:30 98.1 81 18 95/45 (62) 95 07/06/17 16:16 98.0 80 20 100/60 (73) 92 07/06/17 12:49 97.6 81 20 112/66 (81) 92 07/06/17 12:00 98.2 80 18 116/74 (88) 100 Result Diagram: 07/06/17 0547 07/06/17 0547 Imaging Last [address] 07/05/17 1504 Signed Impressions: Service Date/Time: June 16:13 - CONCLUSION: No acute intracranial findings. Zack Javed MD Chest X-Ray 07/05/17 1504 Signed Impressions: Service Date/Time: June 15:15 - CONCLUSION: Large right pleural effusion opacifying the entire right hemithorax. Dainel Reyes Jr., MD A/P Problem List: (1) Pleural effusion associated with hepatic disorder ICD Codes: K76.9 - Liver disease, unspecified; J91.8 - Pleural effusion in other conditions classified elsewhere Status: Acute Plan: - Pt has recurrent pleural effusions related to his liver cirrhosis - Patient had chest tube placed approximately 1 week ago per the pts - They were supposed to drain 600mL out of this daily - The pt has fluid consistently draining out from around the tubes insertion site - Interventional radiology has been consulted to try to access the tube to try to continue drainage - CXR at admission noted large right pleural effusion opacifying the entire right hemithorax. Dr Alegre replaced his nonfunction drain with Aspira system. removed 4L and pt/ are educated to remove 1.5-2L per day. d/c back to snf. (2) Alcoholic cirrhosis of liver with ascites ICD Codes: K70.31 - Alcoholic cirrhosis of liver with ascites Status: Acute Plan: - Pt is a 56 y/o WM with alcoholic ESLD, portal HTN, hepatic encephalopathy, recurrent ascites, recurrent pleural effusion, thrombocytopenia, and BRENT - Pt was sent over from a local rehab center for AMS and suicidal ideation - Pt with significant anasarca/edema - He is on Aldactone 50mg po BID and Lasix 40mg po daily - Attempt to diurese and control portal hypertension as systemic blood pressure allows. - End-of-life issues were previously discussed with patient and his . refuses hospice at this point. She understands that we may not have much more medically to offer her . - We will give albumin infusion prior to furosemide administration. - Pt is a DNR. (3) Hepatic encephalopathy ICD Codes: K72.90 - Hepatic failure, unspecified without coma Status: Chronic Plan: - Recurrent issue. - Pt is on Lactulose 30mL Q6H PRN - His Ammonia level came down from 74 to 26 - Change lactulose to 30mL daily (4) Suicidal ideation ICD Codes: R45.851 - Suicidal ideations Status: Acute Plan: - Psychiatry has been consulted. - Pt reportedly tried to harm himself at prison facility (5) Altered mental status, unspecified ICD Codes: R41.82 - Altered mental status, unspecified Status: Acute Plan: - Improved today, this is a recurrent issue. -Likely associated with hepatic encephalopathy and hyperammonemia. - Continue lactulose. (6) Anasarca ICD Codes: R60.1 - Generalized edema Status: Chronic Plan: - See above Problem Qualifiers (1) Altered mental status, unspecified: Qualified Codes: R41.0 - Disorientation, unspecified Shin Knight MD Jul 07, 2017 09:55
[2017-07-07 12:00] VITALS: BP 107/56; PULSE 91; RESP 17; TEMP 97.8; O2SAT 93
[2017-07-07 16:00] VITALS: BP 108/65; PULSE 91; RESP 17; TEMP 97.8; O2SAT 94
[2017-07-07] MEDS: traMADol HCL 50 MG TAB PO PRN (16:14)
[2017-07-07 20:00] VITALS: BP 97/53; PULSE 103; RESP 18; TEMP 99; O2SAT 96
[2017-07-07] MEDS: lamoTRIgine 100 MG TAB PO SCH (22:13)
[2017-07-08] VITALS: BP 94/51; PULSE 103; RESP 21; TEMP 98.3; O2SAT 95
[2017-07-08] MEDS: ALBUMIN 25% INJ 100 ML IV SCH ×2 (00:16→17:28)
[2017-07-08] MEDS: traMADol HCL 50 MG TAB PO PRN ×3 (00:35→20:21)
[2017-07-08 04:00] VITALS: BP 102/60; PULSE 93; RESP 17; TEMP 98.3; O2SAT 94
[2017-07-08 08:00] VITALS: BP 103/60; PULSE 95; RESP 17; TEMP 97.9; O2SAT 95
[2017-07-08] MEDS: FAMOTIDINE 20 MG TAB PO SCH (09:05)
[2017-07-08] MEDS: FUROSEMIDE 40 MG TAB PO SCH (09:05)
[2017-07-08] MEDS: SPIRONOLACTONE 50 MG TAB PO SCH ×2 (09:05→19:15)
[2017-07-08] MEDS: NADOLOL 20 MG TAB PO SCH (09:05)
[2017-07-08] MEDS: FOLIC ACID 1 MG TAB PO SCH (09:05)
[2017-07-08] MEDS: LACTULOSE SYRUP 20 GM/30 ML CUP PO SCH (09:05)
--- NOTE | 2017-07-08 10:36 | HHI.PR ---
Subjective Remarks Pt drained about 1.5L out from chest tube yesterday and pt had some pain after that He has been afebrile Pt did not get accepted to SNF yesterday so awaiting SNF placement for discharge. Objective Vitals Vital Signs Date Time Temp Pulse Resp B/P (MAP) Pulse Ox O2 Delivery O2 Flow Rate FiO2 07/08/17 04:00 98.3 93 17 102/60 (74) 94 07/08/17 00:00 98.3 103 21 94/51 (65) 95 07/07/17 20:00 99.0 103 18 97/53 (68) 96 07/07/17 16:00 97.8 91 17 108/65 (79) 94 07/07/17 12:00 97.8 91 17 107/56 (73) 93 Result Diagram: 07/06/17 0547 07/06/17 0547 Imaging Last [address] 07/05/17 1504 Signed Impressions: Service Date/Time: June 16:13 - CONCLUSION: No acute intracranial findings. Zack Javed MD Chest X-Ray 07/05/17 1504 Signed Impressions: Service Date/Time: June 15:15 - CONCLUSION: Large right pleural effusion opacifying the entire right hemithorax. Daniel Reyes Jr., MD Objective Remarks General: NAD, AAOx3 Chest: Good air movement in both lungs. CT in place Cardiac: Regular Abd: +BS, soft ND/NT Ext: Bilateral LE pitting edema to the thighs A/P Problem List: (1) Pleural effusion associated with hepatic disorder ICD Codes: K76.9 - Liver disease, unspecified; J91.8 - Pleural effusion in other conditions classified elsewhere Status: Acute Plan: - Pt has recurrent pleural effusions related to his liver cirrhosis - Patient had chest tube placed approximately 1 week ago per the pts - They were supposed to drain 600mL out of this daily - The pt has fluid consistently draining out from around the tubes insertion site - Interventional radiology has been consulted to try to access the tube to try to continue drainage - CXR at admission noted large right pleural effusion opacifying the entire right hemithorax. - Dr Alegre replaced his nonfunction drain with Aspira system. Removed 4L at the time of exchange and pt/ are educated to remove 1.5-2L per day. - Pt had 1.5L drained on 07/07 - Pt was d/c back to SNF on on 07/07 but pt does not have an accepting facility at this time (2) Alcoholic cirrhosis of liver with ascites ICD Codes: K70.31 - Alcoholic cirrhosis of liver with ascites Status: Acute Plan: - Pt is a 56 y/o WM with alcoholic ESLD, portal HTN, hepatic encephalopathy, recurrent ascites, recurrent pleural effusion, thrombocytopenia, and BRENT - Pt was sent over from a local rehab center for AMS and suicidal ideation - Pt with significant anasarca/edema - He is on Aldactone 50mg po BID and Lasix 40mg po in Am and 20mg in PM - Attempt to diurese and control portal hypertension as systemic blood pressure allows. - End-of-life issues were previously discussed with patient and his . refuses hospice at this point. She understands that we may not have much more medically to offer her . - Pt still with significant LE edema - We will change Lasix to 20mg IV BID as BP allows and give albumin infusion prior to furosemide administration. - Pt is a DNR. (3) Hepatic encephalopathy ICD Codes: K72.90 - Hepatic failure, unspecified without coma Status: Chronic Plan: - Recurrent issue. - Pt is on Lactulose 30mL Q6H PRN - His Ammonia level came down from 74 to 26 - Change lactulose to 30mL BID (4) Suicidal ideation ICD Codes: R45.851 - Suicidal ideations Status: Acute Plan: - Psychiatry has been consulted. - Pt reportedly tried to harm himself at detention facility - Psych cleared from for discharge (5) Altered mental status, unspecified ICD Codes: R41.82 - Altered mental status, unspecified Status: Acute Plan: - Improved, this is a recurrent issue. - Likely associated with hepatic encephalopathy and hyperammonemia. - Continue lactulose. (6) Anasarca ICD Codes: R60.1 - Generalized edema Status: Chronic Plan: - See above Assessment and Plan Patient examined. Assessment and plan formulated with Simi Fonseca PA-C. I agree with the above. severe esld . ascites/peripheral edema/recurrent pleural effusion right chest aspira. 1.5L off yesterday d/c orders written on 07/07....awaiting accepting facility. until then iv albumen/lasix/bmp. Problem Qualifiers (1) Altered mental status, unspecified: Qualified Codes: R41.0 - Disorientation, unspecified Simi Fonseca Jul 08, 2017 10:36 Shin Knight MD Jul 08, 2017 11:28
[2017-07-08 12:00] VITALS: BP 91/56; PULSE 94; RESP 16; TEMP 98.2; O2SAT 93
[2017-07-08 16:00] VITALS: BP 98/60; PULSE 86; RESP 16; TEMP 98; O2SAT 92
[2017-07-08] MEDS: FUROSEMIDE 20 MG/2 ML VIAL IV PUSH SCH (19:15)
[2017-07-08 20:00] VITALS: BP 143/65; PULSE 95; RESP 17; TEMP 98.7; O2SAT 95
[2017-07-08] MEDS: lamoTRIgine 100 MG TAB PO SCH (20:21)
[2017-07-08] MEDS ORDERED: LACTULOSE SYRUP 20 GM/30 ML CUP PO SCH (21:00)
[2017-07-09] VITALS (12 sets, daily range): BP systolic 93–105; BP diastolic 51–65; PULSE 78–100; RESP 19–24; TEMP 97.9–98.3; O2SAT 90–100
[2017-07-09] MEDS ORDERED: FUROSEMIDE 40 MG/4 ML VIAL IV PUSH ONE (04:03)
--- NOTE | 2017-07-09 05:11 | HHI.PR ---
Addendum to Inpatient Note Addendum Reason: Additional Documentation Additional Information [facility] Note S: Resident team called at approximately 0400 on 07/09/2017 for increased respiratory effort. According to nursing staff and EMR this patient is a 57-year -old male with end-stage liver disease due to alcoholic cirrhosis who initially presented for altered mental status from a nursing care facility. His , who was present at the time of the [facility], reports that tonight he's had increased difficulty breathing and has been coughing up some "darker fluid." She reports this may happen before, he had a chest tube placed "for pneumonias" a little over a week ago that has been drained several times. She reports that they drained it partially today as well. The patient was reluctant to be interviewed , whenever asked to answer questions or perform actions he responded with "give me a second." The notes this is close to his baseline when he's frustrated. Could not elicit further symptoms from the patient himself. According to EMR Dr. Alegre had recently replaced the patient's nonfunctioning chest drain within an Aspira system. The patient had drained 1.5 L on 07/07. They were educated to remove 1.5-2 L per day. Currently being treated for end- stage liver disease with Aldactone 50 mg by mouth twice a day, Lasix 40 mg by mouth in the a.m. and 20 mg in the p.m. and lactulose 30 mL twice a day. O: Temperature: 98.3 Pulse: 94 RR: 40 BP: 104/68 SPO2: 98 on nasal cannula 4 L GENERAL: Seated in bed, uncomfortable appearing, apparent increased respiratory effort SKIN: Warm and dry, jaundiced HEAD: Atraumatic. Normocephalic. EYES: Pupils equal and round. Scleral icterus. No injection or drainage. NECK: Trachea midline. CARDIOVASCULAR: Regular rhythm, increased rate. RESPIRATORY: Respiratory rate increased to 40 BPM, short shallow breaths. Decreased right lower lung sounds, minimal basilar crackles, no wheezing or rhonchi noted. Right sided chest tube in place. GASTROINTESTINAL: Abdomen distended, nontender. MUSCULOSKELETAL: Extremities without clubbing, cyanosis. Bilateral pitting edema 3+. No obvious deformities. NEUROLOGICAL: Awake and alert. No obvious cranial nerve deficits. Motor grossly within normal limits. Speech clear, however brief possibly due to increased respiratory rate. A/P: 57-year-old male with end-stage liver disease, recurrent pulmonary effusions, exhibiting new respiratory distress. Patient unwilling to verbally communicate with medical staff. Decreased right lower breath sounds. ABG with mixed respiratory acidosis/metabolic alkalosis picture. -40 mg Lasix IV given -Follow up CXR -Follow up lactic acid, blood culture, ammonia level -Blower Installer consulted, patient to be transferred to ICU Nicholas Diop MD R1 Jul 09, 2017 05:11
--- NOTE | 2017-07-09 05:14 | RADRPT ---
EXAM DATE/TIME: 07/09/2017 04:11 [facility] COMPARISON: REVISION TUNNELED DRAINAGE CATHETER, RIGHT, July 06, 2017, 0:00. CHEST SINGLE AP, July 05 8, 15:15. INDICATIONS : Short of breath. MEDICAL HISTORY : None. SURGICAL HISTORY : None. ENCOUNTER: Initial ACUITY: 4 - 6 days PAIN SCORE: 0/10 LOCATION: Bilateral chest FINDINGS: There is basilar airspace disease. Cardiomegaly. Small bilateral effusions. No pneumothorax. CONCLUSION: 1. Status post right thoracentesis since exam from July 05. Small residual effusions with basilar airspace disease. No pneumothorax. Sandeep Morgan MD on July 09, 2017 at 5:08 Board Certified Radiologist. This report was verified electronically.
--- NOTE | 2017-07-09 05:45 | PD.CONS ---
HPI Service Critical Care Medicine Consult Requested By [facility] Reason for Consult Respiratory distress Primary Care Physician Unknown History of Present Illness Patient is not able to provide history. History obtained from and EMR. 57 yo WM with PMH of EtOH cirrhosis who was recently hospitalized at [facility] for 2 months for severe hepatic encephalopathy with coma and respiratory failure. He had R pleural drain due to recurrent pleural effusion, presumably hepatic hydrothorax. Hospice was discussed but his felt he was improving and requested rehab placement but she states placement was challenging due to presence of pleural drain. He was placed at [facility] on however during therapy he began acting out and they felt he may be suicidal so he was brought to [facility] for psychiatric evaluation. Psychiatry indicated he did not meet criteria for inpatient admission and did not recommend any additional medications. He had a CT brain on 07/05 that was negative. Chest x-ray demonstrated opacification of right hemithorax on 07/05. He went to IR on 07/06 and had 4 L removed and a new valve was placed on the drain which his says will allow for collection of additional fluid, now typically 1 L /day rather than 500-600 mL/day previously. He has also been on lasix/albumin/spironolactone. He has been on lactulose and most recent ammonia level was 26. Now tonight his says he began coughing and coughed up some thick blood tinged secretions and then Roseanne was called for respiratory distress. He also had clots of old blood in his left nare and she states this is where he previously had NGT for extended period of time. He is no longer coughing, has no active bleeding and says his breathing effort appears baseline to her. His mental status has also declined somewhat compared to admission. His states at baseline he is not oriented and she feels like his confusion is "pretty much baseline" but that his eyelids are fluttering "like they did when he first came out of a coma at [facility]". He is speaking some and following commands. ABG demonstrates metabolic alkalosis with pH of 7.44/PaCO2 43/PA O2 of 66/bicarbonate of 28. CXR shows bilateral pleural effusions. He has received Lasix 40 mg IV per residents. Labs are pending. Review of Systems ROS Limitations: Clinical Condition Past Family Social History Allergies: Coded Allergies: No Known Allergies (Verified Allergy, Unknown, 07/05/17) Past Medical History Alcoholism with alcoholic cirrhosis and encephalopathy End-stage liver disease Ascites Esophageal varices Sleep apnea Hyperammonemia Thrombocytopenia Recurrent right pleural effusion Vitamin D deficiency Large umbilical hernia Chronic headaches Past Surgical History Bilateral rotator shock cuff repair Bilateral knee arthroscopy when he was in his 20s Ventral hernia repair EGD 201415 grade 1 esophageal varices with no bleeding, diffuse gastritis. R pleural catheter placed at [facility] in April or May 2017 Reported Medications Nadolol 20 mg by mouth daily Spironolactone 50 mg by mouth twice a day Aspirin 81 mg by mouth daily and lamotrigine 200 mg by mouth daily at bedtime Lactulose 30 mg by mouth twice a day Lasix 40 mg by mouth every morning and 20 mg every afternoon he sees per ) Folic acid 1000 g by mouth daily Cholecalciferol 50,000 units by mouth every 7 days Zantac 150 mg by mouth daily Family History Both of his parents had alcoholism Social History He smoked as a teenager and then quit. He dips tobacco. He has a long history of alcohol abuse. His last drink was 05/15/17. 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 Grew up in [place] Was working with PT at [facility] and was apparently able to stand at that time. Has not been able to stand since at [facility]. Is eating with combination of feeding himself and with his /nurses assisting. Physical Exam Vital Signs Vital Signs Date Time Temp Pulse Resp B/P (MAP) Pulse Ox O2 Delivery O2 Flow Rate FiO2 07/09/17 03:50 98 4.00 07/09/17 00:00 98.3 98 22 93/51 (65) 90 07/08/17 20:00 98.7 95 17 143/65 (91) 95 07/08/17 16:00 98.0 86 16 98/60 (73) 92 07/08/17 12:00 98.2 94 16 91/56 (68) 93 07/08/17 08:00 97.9 95 17 103/60 (74) 95 Physical Exam GENERAL: Jaundice confused male who is sitting up in ISC bed on nasal cannula SKIN: Jaundiced. Intertriginous rash bilateral inguinal creases consistent with gladys. Redness and sloughing on buttocks but no ulceration. HEAD: Atraumatic. Normocephalic. EYES: Pupils equal and round, 6 mm and reactive to 4 mm bilaterally. icteric. ENT: No nasal bleeding or discharge. Mucous membranes pink and moist. NECK: Trachea midline. No JVD. CARDIOVASCULAR: Regular rate and rhythm. No murmurs rubs or gallops. RESPIRATORY: Tachypneic with shallow breathing but no accessory muscle use. Diminished bibasilar. Pleural catheter in place right anterior chest with serous fluid in the tubing. GASTROINTESTINAL: Abdomen soft, non-tender, with reducible ventral hernia. Bowel sounds present. MUSCULOSKELETAL: Extremities without clubbing, cyanosis. 2+ bilateral lower extremity edema NEUROLOGICAL: Eyes open, alert, intermittently makes eye contact. Confused and oriented to self only. Has generalized weakness with muscle atrophy in hands and forearms bilaterally. Follows commands by moving all extremities Laboratory Laboratory Tests Test 07/09/17 04:00 Blood Gas Puncture Site RT RADIAL Blood Gas Patient Temperature 98.6 Blood Gas HCO3 28 Blood Gas Base Excess 4.1 Blood Gas Oxygen Saturation 89 Arterial Blood pH 7.44 Arterial Blood Partial Pressure CO2 43 Arterial Blood Partial Pressure O2 66 Arterial Blood Oxygen Content 10.9 Arterial Blood Carboxyhemoglobin 1.9 Arterial Blood Methemoglobin 0.9 Blood Gas Hemoglobin 8.7 Oxygen Delivery Device NASAL CANNULA Blood Gas Liter Flow 5 Date/Time Source Procedure Growth Status 07/05/17 15:15 Urine Clean Catch Urine Culture - Final NO GROWTH IN 48 HOURS. Complete Result Diagram: 07/06/17 0547 07/06/17 0547 Assessment and Plan Problem List: (1) Acute hepatic encephalopathy ICD Code: K72.00 - Acute and subacute hepatic failure without coma Status: Acute (2) Anasarca ICD Code: R60.1 - Generalized edema Status: Chronic (3) Alcoholic cirrhosis of liver with ascites ICD Code: K70.31 - Alcoholic cirrhosis of liver with ascites Status: Chronic (4) Pleural effusion associated with hepatic disorder ICD Code: K76.9 - Liver disease, unspecified; J91.8 - Pleural effusion in other conditions classified elsewhere Status: Chronic Assessment and Plan NEURO: Hepatic encephalopathy Seizures History of alcohol dependence CT brain neg 07/05 Follow-up ammonia level On lactulose 30 mL by mouth twice a day, will increase to qid Continue Lamictal 200 mg by mouth daily Ultram as needed for pain. Avoid sedative RESP: Respiratory distress, improved Hepatic hydrothorax R Pleural catheter in place, drain up to 1 L daily Lasix 40 mg iv given and continue Lasix 20 mg IV twice a day. NC wean as tolerated. CV: Continue nadolol 20 mg by mouth daily for portal hypertension GI: Cirrhosis Chronic protein energy malnutrition History of varices Chronic ascites Regular diet Spironolactone 50 twice a day, Lasix 20 mg IV 12 with albumin, nadolol as per above FEN/RENAL: Chronic asymptomatic hyponatremia Condom catheter in place. Replace electrolyte as indicated ID: Afebrile. Monitor for signs and symptoms of infection HEME: Chronic anemia Chronic thrombocytopenia Monitor CBC ENDO: Euglycemic. TSH normal PROPH: Famotidine for stress ulcer prophylaxis. Avoid pharmacologic DVT prophylaxis due to thrombocytopenia, anemia, history of GI bleeding ACCESS: Peripheral IV indicates that he would desire full code including intubation if needed for respiratory failure Patient's prognosis is poor and he would be hospice appropriate if that was congruent with his wishes. Level II consult Paula Chavez MD Jul 09, 2017 05:45
[2017-07-09 06:01] LABS: AUTOMATED NEUTROPHIL # 10.4 TH/MM3 (1.8-7.7); BASOPHIL % 0.2 % (0.0-2.0); EOSINOPHIL # 0.1 TH/MM3 (0-0.4); EOSINOPHIL % 0.9 % (0.0-4.0); HEMATOCRIT 25.6 % (39.0-51.0); HEMOGLOBIN 8.9 GM/DL (13.0-17.0); LYMPH % 5.6 % (9.0-44.0); LYMPHOCYTE # 0.7 TH/MM3 (1.0-4.8); MEAN CORPUSCULAR HEMOGLOBIN 39.5 PG (27.0-34.0); MEAN CORPUSCULAR HGB CONC 34.9 % (32.0-36.0); MEAN PLATELET VOLUME 7.3 FL (7.0-11.0); MONO % 13.3 % (0.0-8.0); MONOCYTE # 1.7 TH/MM3 (0-0.9); PLATELET COUNT 92 TH/MM3 (150-450); RED BLOOD COUNT 2.27 MIL/MM3 (4.50-5.90); RED CELL DISTRIBUTION WIDTH 14.7 % (11.6-17.2)
[2017-07-09 06:20] LABS: LACTIC ACID SEPSIS PROTOCOL 2.4 mmol/L (0.4-2.0)
[2017-07-09 06:28] LABS: BICARBONATE 29.9 MEQ/L (21.0-32.0); CREATININE 1.04 MG/DL (0.60-1.30); MAGNESIUM 1.4 MG/DL (1.5-2.5)
[2017-07-09] MEDS ORDERED: POTASSIUM CHLOR 40 MEQ PREMIX 100 ML IV PRN ×2 (09:00)
[2017-07-09] MEDS ORDERED: POTASSIUM PHOSPHATE MONOBASIC 500 MG TAB PO PRN (09:00)
[2017-07-09] MEDS ORDERED: MAGNESIUM SULFATE INJ 2 GM in SODIUM CHLORIDE 0.9% INJ 96 ML IV PRN (09:00)
[2017-07-09] MEDS ORDERED: POTASSIUM PHOSPHATE INJ 30 MMOL in SODIUM CHLOR 0.9% 250 ML INJ 250 ML IV PRN (09:00)
[2017-07-09] MEDS ORDERED: POTASSIUM CHLOR 20 MEQ PREMIX 100 ML IV PRN ×2 (09:00)
[2017-07-09] MEDS ORDERED: MAGNESIUM SULFATE INJ 4 GM in SODIUM CHLORIDE 0.9% INJ 92 ML IV PRN (09:00)
[2017-07-09] MEDS ORDERED: POTASSIUM PHOSPHATE MONOBASIC 500 MG TAB PO/TUBE PRN (09:00)
[2017-07-09] MEDS: NADOLOL 20 MG TAB PO SCH (09:00)
[2017-07-09] MEDS ORDERED: MAGNESIUM OXIDE 400 MG TAB PO PRN (09:00)
[2017-07-09] MEDS ORDERED: POTASSIUM CHLORIDE 25 MEQ EFFERVESCENT TAB PO PRN (09:00)
[2017-07-09] MEDS: SPIRONOLACTONE 50 MG TAB PO SCH ×2 (09:00→18:38)
[2017-07-09] MEDS ORDERED: MAGNESIUM SULFATE 1 GM PREMIX 100 ML IV ONE (09:00)
[2017-07-09] MEDS ORDERED: SODIUM PHOSPHATE INJ 30 MMOL in SODIUM CHLOR 0.9% 250 ML INJ 240 ML IV PRN (09:00)
[2017-07-09] MEDS: ALBUMIN 25% INJ 100 ML IV SCH ×2 (10:10→18:43)
[2017-07-09] MEDS: FUROSEMIDE 20 MG/2 ML VIAL IV PUSH SCH ×2 (10:11→18:38)
[2017-07-09] MEDS: FOLIC ACID 1 MG TAB PO SCH (10:11)
[2017-07-09] MEDS: FAMOTIDINE 20 MG TAB PO SCH (10:11)
[2017-07-09] MEDS: LACTULOSE SYRUP 20 GM/30 ML CUP PO SCH ×3 (18:00→21:56)
[2017-07-09] MEDS: NYSTATIN 100,000 UNIT/GM CREAM 15 GM TOPICAL SCH ×2 (18:37→18:44)
[2017-07-09] MEDS: lamoTRIgine 100 MG TAB PO SCH (21:56)
[2017-07-10] VITALS (9 sets, daily range): BP systolic 97–113; BP diastolic 54–61; PULSE 5–103; RESP 21–28; TEMP 98.1–98.5; O2SAT 96–100
[2017-07-10] MEDS: NYSTATIN 100,000 UNIT/GM CREAM 15 GM TOPICAL SCH ×4 (05:23→17:37)
[2017-07-10] MEDS: SPIRONOLACTONE 50 MG TAB PO SCH ×2 (09:14→17:37)
[2017-07-10] MEDS: FOLIC ACID 1 MG TAB PO SCH (09:14)
[2017-07-10] MEDS: NADOLOL 20 MG TAB PO SCH (09:14)
[2017-07-10] MEDS: FAMOTIDINE 20 MG TAB PO SCH (09:14)
[2017-07-10] MEDS: LACTULOSE SYRUP 20 GM/30 ML CUP PO SCH ×4 (09:14→20:35)
[2017-07-10] MEDS: ALBUMIN 25% INJ 100 ML IV SCH ×2 (09:15→17:37)
[2017-07-10] MEDS: FUROSEMIDE 20 MG/2 ML VIAL IV PUSH SCH ×2 (11:13→18:14)
--- NOTE | 2017-07-10 15:28 | HHI.PR ---
Subjective Remarks No new complaints. Objective Vitals Vital Signs Date Time Temp Pulse Resp B/P (MAP) Pulse Ox O2 Delivery O2 Flow Rate FiO2 07/10/17 12:00 98.1 91 28 105/57 (73) 96 07/10/17 08:00 98.4 76 21 107/59 (75) 98 07/10/17 07:00 99 Nasal Cannula 4.00 07/10/17 06:00 76 07/10/17 04:00 98.1 83 22 104/60 (75) 100 07/10/17 04:00 81 07/10/17 02:00 92 07/10/17 00:00 92 07/10/17 00:00 98.3 92 22 97/57 (70) 100 07/09/17 20:00 98.0 87 20 98/56 (70) 99 07/09/17 20:00 84 07/09/17 19:00 99 Nasal Cannula 4.00 07/09/17 16:00 97.9 Result Diagram: 07/09/17 0548 07/09/17 0548 Other Results Laboratory Tests Test 07/09/17 04:00 07/09/17 05:48 07/09/17 11:51 Blood Gas Puncture Site RT RADIAL Blood Gas Patient Temperature 98.6 Blood Gas HCO3 28 mmol/L Blood Gas Base Excess 4.1 mmol/L Blood Gas Oxygen Saturation 89 % Arterial Blood pH 7.44 Arterial Blood Partial Pressure CO2 43 mmHg Arterial Blood Partial Pressure O2 66 mmHg Arterial Blood Oxygen Content 10.9 Vol % Arterial Blood Carboxyhemoglobin 1.9 % Arterial Blood Methemoglobin 0.9 % Blood Gas Hemoglobin 8.7 G/DL Oxygen Delivery Device NASAL CANNULA Blood Gas Liter Flow 5 L/M White Blood Count 13.0 TH/MM3 Red Blood Count 2.27 MIL/MM3 Hemoglobin 8.9 GM/DL Hematocrit 25.6 % Mean Corpuscular Volume 113.0 FL Mean Corpuscular Hemoglobin 39.5 PG Mean Corpuscular Hemoglobin Concent 34.9 % Red Cell Distribution Width 14.7 % Platelet Count 92 TH/MM3 Mean Platelet Volume 7.3 FL Neutrophils (%) (Auto) 80.0 % Lymphocytes (%) (Auto) 5.6 % Monocytes (%) (Auto) 13.3 % Eosinophils (%) (Auto) 0.9 % Basophils (%) (Auto) 0.2 % Neutrophils # (Auto) 10.4 TH/MM3 Lymphocytes # (Auto) 0.7 TH/MM3 Monocytes # (Auto) 1.7 TH/MM3 Eosinophils # (Auto) 0.1 TH/MM3 Basophils # (Auto) 0.0 TH/MM3 CBC Comment AUTO DIFF Differential Comment AUTO DIFF CONFIRMED Platelet Estimate LOW Platelet Morphology Comment NORMAL Prothrombin Time 20.0 SEC Prothromb Time International Ratio 2.0 RATIO Activated Partial Thromboplast Time 45.7 SEC Blood Urea Nitrogen 14 MG/DL Creatinine 1.04 MG/DL Random Glucose 115 MG/DL Calcium Level 9.0 MG/DL Magnesium Level 1.4 MG/DL Sodium Level 134 MEQ/L Potassium Level 3.8 MEQ/L Chloride Level 96 MEQ/L Carbon Dioxide Level 29.9 MEQ/L Anion Gap 8 MEQ/L Estimat Glomerular Filtration Rate 74 ML/MIN Lactic Acid Level 2.4 mmol/L 2.4 mmol/L Ammonia 32 MCMOL/L Imaging Last [address] 07/05/17 1504 Signed Impressions: Service Date/Time: June 16:13 - CONCLUSION: No acute intracranial findings. Zack Javed MD Chest X-Ray 07/05/17 1504 Signed Impressions: Service Date/Time: June 15:15 - CONCLUSION: Large right pleural effusion opacifying the entire right hemithorax. Daniel Reyes Jr., MD Objective Remarks General: NAD, AAOx3 Chest: Good air movement in both lungs. CT in place Cardiac: Regular Abd: +BS, soft ND/NT Ext: Bilateral LE pitting edema to the thighs A/P Problem List: (1) Pleural effusion associated with hepatic disorder ICD Codes: K76.9 - Liver disease, unspecified; J91.8 - Pleural effusion in other conditions classified elsewhere Status: Chronic Plan: - Pt has recurrent pleural effusions related to his liver cirrhosis - Patient had chest tube placed approximately 1 week ago per the pts - They were supposed to drain 600mL out of this daily - The pt has fluid consistently draining out from around the tubes insertion site - Interventional radiology has been consulted to try to access the tube to try to continue drainage - CXR at admission noted large right pleural effusion opacifying the entire right hemithorax. - Dr Alegre replaced his nonfunction drain with Aspira system. Removed 4L at the time of exchange and pt/ are educated to remove 1.5-2L per day. - Pt had 1.5L drained on 07/07 - On 07/08 pt began coughing and coughed up some thick blood tinged secretions and then Halicat was called for respiratory distress and pt was moved to [facility] and was seen by the intensivists on 07/09. Pt had clinical improvement to his baseline breathing effort per the pts . ABG on 07/09 demonstrated metabolic alkalosis with pH of 7.44/PaCO2 43/PA O2 of 66/bicarbonate of 28. - CXR (07/09) bilateral pleural effusions. He received Lasix 40 mg IV by the residents who responded to the Halicat. - Pt was transferred back to the [facility] Hospitalist team on 07/10/17 - Pt is still on 4L of supplemental O2 via NC - Cont. daily drainage from the right CT of 1-2L daily - We will still need to continue working with CM on finding placement for this pt at SNF when pt is stabilized for discharge. - Consult Palliative care to help with goals of care - Ok to transfer out of the ICU (2) Alcoholic cirrhosis of liver with ascites ICD Codes: K70.31 - Alcoholic cirrhosis of liver with ascites Status: Chronic Plan: - Pt is a 56 y/o WM with alcoholic ESLD, portal HTN, hepatic encephalopathy, recurrent ascites, recurrent pleural effusion, thrombocytopenia, and BRENT - Pt was sent over from a local rehab center for AMS and suicidal ideation - Pt with significant anasarca/edema - He is on Aldactone 50mg po BID and Lasix 40mg po in Am and 20mg in PM - Attempt to diurese and control portal hypertension as systemic blood pressure allows. - End-of-life issues were previously discussed with patient and his . refuses hospice at this point. She understands that we may not have much more medically to offer her . - Pt still with significant LE edema - Cont. Lasix to 20mg IV BID as BP allows and give albumin infusion prior to furosemide administration. - Pt is a DNR. (3) Hepatic encephalopathy ICD Codes: K72.90 - Hepatic failure, unspecified without coma Status: Chronic Plan: - Recurrent issue. - Pt is on Lactulose 30mL Q6H PRN - His Ammonia level came down from 74 to 26 - Lactulose increased to 30mL QID on 07/09 - Ammonia level 32 on 07/09 (4) Suicidal ideation ICD Codes: R45.851 - Suicidal ideations Status: Acute Plan: - Psychiatry has been consulted. - Pt reportedly tried to harm himself at long-term facility - Psych cleared from for discharge (5) Altered mental status, unspecified ICD Codes: R41.82 - Altered mental status, unspecified Status: Acute Plan: - Improved, this is a recurrent issue. - Likely associated with hepatic encephalopathy and hyperammonemia. - Continue lactulose. (6) Anasarca ICD Codes: R60.1 - Generalized edema Status: Chronic Plan: - See above Assessment and Plan Patient examined. Assessment and plan formulated with Simi Fonseca PA-C. I agree with the above. Pt has poor insight into his illness. Pt's prognosis is quite poor. Will request Palliative consult. Problem Qualifiers (1) Altered mental status, unspecified: Qualified Codes: R41.0 - Disorientation, unspecified Simi Fonseca Jul 10, 2017 15:27 Ryan Wright DO Jul 11, 2017 13:12
[2017-07-10] MEDS: lamoTRIgine 100 MG TAB PO SCH (20:35)
[2017-07-10] MEDS ORDERED: SODIUM CHLORIDE FLUSH PRN IV FLUSH (23:15)
[2017-07-11] VITALS: BP 97/57; PULSE 90; RESP 16; TEMP 96.8; O2SAT 98
[2017-07-11] MEDS: NYSTATIN 100,000 UNIT/GM CREAM 15 GM TOPICAL SCH ×4 (06:00→17:46)
[2017-07-11 07:44] LABS: BASOPHIL % 0.1 % (0.0-2.0); EOSINOPHIL # 0.1 TH/MM3 (0-0.4); EOSINOPHIL % 0.7 % (0.0-4.0); HEMATOCRIT 24.1 % (39.0-51.0); HEMOGLOBIN 8.3 GM/DL (13.0-17.0); LYMPH % 9.1 % (9.0-44.0); LYMPHOCYTE # 0.9 TH/MM3 (1.0-4.8); MEAN CELL VOLUME 114.6 FL (80.0-100.0); MEAN CORPUSCULAR HEMOGLOBIN 39.6 PG (27.0-34.0); MEAN CORPUSCULAR HGB CONC 34.6 % (32.0-36.0); MEAN PLATELET VOLUME 7.3 FL (7.0-11.0); MONO % 10.2 % (0.0-8.0); NEUT % 79.9 % (16.0-70.0); PLATELET COUNT 51 TH/MM3 (150-450); RED BLOOD COUNT 2.11 MIL/MM3 (4.50-5.90); RED CELL DISTRIBUTION WIDTH 14.8 % (11.6-17.2)
[2017-07-11 07:52] LABS: BICARBONATE 35.1 MEQ/L (21.0-32.0); CALCIUM 8.9 MG/DL (8.5-10.1); CREATININE 0.91 MG/DL (0.60-1.30); MAGNESIUM 1.5 MG/DL (1.5-2.5)
[2017-07-11 08:00] VITALS: BP 111/66; PULSE 92; RESP 16; TEMP 96.5; O2SAT 95
[2017-07-11 08:45] LABS: OVALOCYTES 1+ (NORMAL)
[2017-07-11] MEDS ORDERED: SODIUM CHLORIDE FLUSH BID IV FLUSH SCH (09:00)
[2017-07-11] MEDS: traMADol HCL 50 MG TAB PO PRN ×2 (09:13→17:46)
[2017-07-11] MEDS: FOLIC ACID 1 MG TAB PO SCH (09:13)
[2017-07-11] MEDS: NADOLOL 20 MG TAB PO SCH (09:13)
[2017-07-11] MEDS: FAMOTIDINE 20 MG TAB PO SCH (09:13)
[2017-07-11] MEDS: ALBUMIN 25% INJ 100 ML IV SCH ×2 (09:14→17:39)
[2017-07-11] MEDS: LACTULOSE SYRUP 20 GM/30 ML CUP PO SCH ×3 (09:14→17:39)
[2017-07-11] MEDS: FUROSEMIDE 20 MG/2 ML VIAL IV PUSH SCH ×2 (09:14→17:39)
[2017-07-11] MEDS: SPIRONOLACTONE 50 MG TAB PO SCH ×2 (09:15→17:46)
[2017-07-11] MEDS ORDERED: RESP: ALBUTEROL 2.5 MG/IPRATROPIUM 0.5 MG NEB (PRN) ONE (10:17)
[2017-07-11] MEDS: RESP: ALBUTEROL 2.5 MG/IPRATROPIUM 0.5 MG NEB (PRN) NEB ×2 (10:18→17:55)
--- NOTE | 2017-07-11 10:28 | PD.CONS ---
Consult Service Palliative Care Consult Requested By Dr. Wright Primary Care Physician Unknown Reason for Consultation a. To assist with evaluation and management of symptoms including:pain b. To assist medical decision maker(s) with: better understanding of current medical conditions; weighing benefits/burdens of medical treatment options; making medical treatment decisions. HPI History of Present Illness Patient is a 56-year-old with liver disease, recurrent pleural effusion, history of hepatic encephalopathy, thrombocytopenia is sent from [facility] to the ER for altered mental status 07/05/2017. Patient was hospitalized for 2 months in [facility] up until 2 days ago when patient was transferred to [facility]. It was reported that patient became somewhat finance and trying to harm himself, stating that he wanted to and wanted to kill himself. His reported that patient has periods of lucidity interest spread with periods of confusion and somewhat apparent hallucinations. Patient threw himself against the wall into the bed and onto the floor. In the ER: * Temperature is 98.1, pulse is moderate, respirations 22, blood pressure is 121 /73, pulse ox is 95% * Sodium is 135, potassium is 4.4, chloride is 12, bicarbonate is 25.0, BUN is 28, creatinine is 1.06 * History 63, ALT is 89, alkaline phosphatase is 76, ammonia level is 74 * Albumin is 2.1 * INR is 2.0, PTT 25.7 * Urine tox screen is positive for benzodiazepine * Head CT shows no acute intracranial findings * Chest x-ray shows large right pleural effusion opacifying the entire right hemothorax Proper drainage equipment is obtained for his indwelling drainage tube so that some of the pleural effusion can be drained. Patient was admitted to hospitalist services. 07/06/2017. Psych evaluated patient. He denies suicidal or homicidal ideation at that point psych felt patient was fully oriented 3 neurological coherent. Psych does not recommend any psychotropics at this time. 07/07/2017-interventional radiology was consulted to try to assess chest tube to try to continue drainage, there has been fluid consistently draining out from around the chest tube insertion site. Nonfunctioning drain was replaced and 4 L was removed. He is maintained on Aldactone, Lasix, lactulose. 07/08/2017-patient did not get accepted to SNF, so awaiting SNF placement for discharge. Ammonia level is down from 74-26. 07/09--patient began coughing up some thick blood-tinged secretions and a halicathad was called. Patient has clots in the left nares. Patient's state that baseline patient is not warranted and feels patient's confusion is pretty much at baseline. Chest x-ray shows small bilateral effusion no pneumothorax. indicated that he would desire full code including intubation if needed for respiratory failure. Milling Machinist noted that patient's prognosis is poor. Palliative care consulted to review goals of care. Today pt is alert oriented. Pt is not confused. at bedside. He complained of headach initially but now say it is gone, he had tramadol. Spent extensive time speaking with pt and : Reviewed diagnosis of liver disease and when that started. Spoke about the hospitalization in the past. We talked about his end stage liver disease and that unfortunately there is no cure and that it is terminal/ end stage. Reenforced pt that he will decline and offered hospice. Talked about full code, life support peg, trach. Pt endorsed that "I don't want to ." Spoke to him and said, I am sorry, but for him unfortuantely he will pass from his liver disease, and soon. Explained decision :"is not weather you or not, but rather a comfortable vs an uncomfortable ." He still endorses full code. at bedside tearful, is realistic. She does understand that pt will become encephalopathic again. seem more receptive to comfort measures. I encourage and patient to talk things over. Function/Cognitive Trajectory End-stage liver failure secondary to alcoholism. Had prolong hospitalization in [facility], and was in nursing rehabilitation facility for a total of 2 days before transferring back to [place]. Review of Systems ROS Limitations: Clinical Condition Constitutional: COMPLAINS OF: Fatigue Cardiovascular: COMPLAINS OF: Dyspnea on Exertion Psychiatric: COMPLAINS OF: Hallucinations, Agitation Past Family Social History Coded Allergies: No Known Allergies (Verified Allergy, Unknown, 07/05/17) Past Medical History iver disease, recurrent pleural effusion, history of hepatic encephalopathy, thrombocytopenia Past Surgical History Chest tube placement Reported Medications Nadolol Spironolactone Aspirin Motrin G Lactulose Furosemide Ondansetron Zantac Folic acid Vitamin D Lactulose Current Medications Medications (Trade) Dose Ordered Sig/Caitlin Route Start Time Stop Time Status Last Admin (Folate) 1 mg DAILY PO 07/06/17 09:00 07/11/17 09:13 (LaMICtal) 200 mg HS PO 07/05/17 21:00 07/10/17 20:35 (Corgard) 20 mg DAILY PO 07/06/17 09:00 07/11/17 09:13 (Aldactone) 50 mg BIDPC PO 07/05/17 18:00 07/11/17 09:15 (Pepcid) 20 mg DAILY PO 07/06/17 09:00 07/11/17 09:13 (Zofran Odt) 4 mg Q8H PRN PO 07/05/17 18:15 07/08/17 00:14 (Drisdol) 50,000 units Q7D PO 07/06/17 09:00 07/06/17 10:04 (Ultram) 50 mg Q8H PRN PO 07/07/17 16:00 07/11/17 09:13 Albumin Human 100 ml @ 60 mls/hr BID@0900,1800 IV 07/08/17 18:00 07/11/17 09:14 (Lasix Inj) 20 mg BID@09,18 IV PUSH 07/08/17 18:00 07/11/17 09:14 (Mycostatin Cream) 1 applic Q6HR TOPICAL 07/09/17 12:00 07/11/17 00:00 (Lactulose Liq) 30 ml QID PO 07/09/17 13:00 07/11/17 09:14 (NS Flush) 2 ml BID IV FLUSH 07/11/17 09:00 07/11/17 09:14 (NS Flush) 2 ml UNSCH PRN IV FLUSH 07/10/17 23:15 (Duoneb Neb) 1 ampule Q4HR NEB PRN NEB 07/11/17 10:00 UNV Family History Unable to elicit Substance Use Tobacco: Yes Alcohol: Yes Prescription med abuse: No Illicits: No Psychosocial History Patient is to current for 1 year and a half. has 3 children. 27 year old son has asperger. 20 year old 15 year old in [place] with mother Spiritual/Cultural Factors Roman Catholic. Living Will: Never completed Health Care Surrogate: Completed, but not made available Physical Exam Vital Signs Date Time Temp Pulse Resp B/P (MAP) Pulse Ox O2 Delivery O2 Flow Rate FiO2 1/31/18 09:24 Nasal Cannula 3.00 07/11/17 08:00 96.5 92 16 111/66 (81) 95 07/11/17 00:00 96.8 90 16 97/57 (70) 98 07/10/17 23:09 Nasal Cannula 2.00 07/10/17 22:00 102 07/10/17 20:00 102 07/10/17 20:00 98.1 103 24 107/54 (71) 96 07/10/17 19:00 96 Nasal Cannula 4.00 07/10/17 16:00 98.5 97 28 113/61 (78) 96 07/10/17 12:00 98.1 91 28 105/57 (73) 96 Exam CONSTITUTIONAL/GENERAL: This is frail middle age male. alert, TUBES/LINES/DRAINS:R chest tube SKIN: come jaundice, rashes, or lesions. Ecchymoses on upper extremities. No wounds seen anteriorly. Skin temperature appropriate. Not diaphoretic. HEAD: Atraumatic. Normocephalic. EYES: Pupils equal and round and reactive. Extraocular motions intact. No scleral icterus. No injection or drainage. Fundi not examined. ENT: Hearing grossly normal. Nose without bleeding or purulent drainage. Throat without visible erythema, exudates, masses, or lesions. NECK: Trachea midline. Supple, nontender. No palpable thyroid enlargement or nodularity. CARDIOVASCULAR: Regular rate and rhythm without murmurs, gallops, or rubs. No JVD. Peripheral pulses symmetric. RESPIRATORY/CHEST: Symmetric, unlabored respirations. dull breath sound at bases. chest tubes GASTROINTESTINAL: Abdomen soft, distended. No hepato-splenomegaly, or palpable masses. No guarding. Bowel sounds present. GENITOURINARY: Without palpable bladder distension. Salomon catheter in place. MUSCULOSKELETAL: Extremities without clubbing, cyanosis, or edema. No joint tenderness or effusion noted. No calf tenderness. No mottling or clubbing. LYMPHATICS: No palpable cervical or supraclavicular adenopathy. NEUROLOGICAL: Awake and alert. Motor and sensory grossly within normal limits. Follows commands. Cognitively sharp today. Moves all extremities. PSYCHIATRIC: No obvious anxiety/depression. no apparent hallucinations or other psychotic thought process. Diagnostic Tests Laboratory Laboratory Tests Test 07/09/17 04:00 07/09/17 05:48 07/09/17 11:51 07/11/17 07:07 Blood Gas Puncture Site RT RADIAL Blood Gas Patient Temperature 98.6 Blood Gas HCO3 28 mmol/L (22-26) Blood Gas Base Excess 4.1 mmol/L (-2-2) Blood Gas Oxygen Saturation 89 % (90-100) Arterial Blood pH 7.44 (7.380-7.420) Arterial Blood Partial Pressure CO2 43 mmHg (38-42) Arterial Blood Partial Pressure O2 66 mmHg (61-120) Arterial Blood Oxygen Content 10.9 Vol % (12.0-20.0) Arterial Blood Carboxyhemoglobin 1.9 % (0-4) Arterial Blood Methemoglobin 0.9 % (0-2) Blood Gas Hemoglobin 8.7 G/DL (12.0-16.0) Oxygen Delivery Device NASAL CANNULA Blood Gas Liter Flow 5 L/M White Blood Count 13.0 TH/MM3 (4.0-11.0) 10.0 TH/MM3 (4.0-11.0) Red Blood Count 2.27 MIL/MM3 (4.50-5.90) 2.11 MIL/MM3 (4.50-5.90) Hemoglobin 8.9 GM/DL (13.0-17.0) 8.3 GM/DL (13.0-17.0) Hematocrit 25.6 % (39.0-51.0) 24.1 % (39.0-51.0) Mean Corpuscular Volume 113.0 FL (80.0-100.0) 114.6 FL (80.0-100.0) Mean Corpuscular Hemoglobin 39.5 PG (27.0-34.0) 39.6 PG (27.0-34.0) Mean Corpuscular Hemoglobin Concent 34.9 % (32.0-36.0) 34.6 % (32.0-36.0) Red Cell Distribution Width 14.7 % (11.6-17.2) 14.8 % (11.6-17.2) Platelet Count 92 TH/MM3 (150-450) 51 TH/MM3 (150-450) Mean Platelet Volume 7.3 FL (7.0-11.0) 7.3 FL (7.0-11.0) Neutrophils (%) (Auto) 80.0 % (16.0-70.0) 79.9 % (16.0-70.0) Lymphocytes (%) (Auto) 5.6 % (9.0-44.0) 9.1 % (9.0-44.0) Monocytes (%) (Auto) 13.3 % (0.0-8.0) 10.2 % (0.0-8.0) Eosinophils (%) (Auto) 0.9 % (0.0-4.0) 0.7 % (0.0-4.0) Basophils (%) (Auto) 0.2 % (0.0-2.0) 0.1 % (0.0-2.0) Neutrophils # (Auto) 10.4 TH/MM3 (1.8-7.7) 8.0 TH/MM3 (1.8-7.7) Lymphocytes # (Auto) 0.7 TH/MM3 (1.0-4.8) 0.9 TH/MM3 (1.0-4.8) Monocytes # (Auto) 1.7 TH/MM3 (0-0.9) 1.0 TH/MM3 (0-0.9) Eosinophils # (Auto) 0.1 TH/MM3 (0-0.4) 0.1 TH/MM3 (0-0.4) Basophils # (Auto) 0.0 TH/MM3 (0-0.2) 0.0 TH/MM3 (0-0.2) CBC Comment AUTO DIFF AUTO DIFF Differential Comment AUTO DIFF CONFIRMED AUTO DIFF CONFIRMED Platelet Estimate LOW (NORMAL) LOW (NORMAL) Platelet Morphology Comment NORMAL (NORMAL) NORMAL (NORMAL) Prothrombin Time 20.0 SEC (9.8-11.6) Prothromb Time International Ratio 2.0 RATIO Activated Partial Thromboplast Time 45.7 SEC (24.3-30.1) Blood Urea Nitrogen 14 MG/DL (7-18) 12 MG/DL (7-18) Creatinine 1.04 MG/DL (0.60-1.30) 0.91 MG/DL (0.60-1.30) Random Glucose 115 MG/DL (74-106) 118 MG/DL (74-106) Calcium Level 9.0 MG/DL (8.5-10.1) 8.9 MG/DL (8.5-10.1) Magnesium Level 1.4 MG/DL (1.5-2.5) 1.5 MG/DL (1.5-2.5) Sodium Level 134 MEQ/L (136-145) 136 MEQ/L (136-145) Potassium Level 3.8 MEQ/L (3.5-5.1) 3.8 MEQ/L (3.5-5.1) Chloride Level 96 MEQ/L (98-107) 97 MEQ/L (98-107) Carbon Dioxide Level 29.9 MEQ/L (21.0-32.0) 35.1 MEQ/L (21.0-32.0) Anion Gap 8 MEQ/L (5-15) 4 MEQ/L (5-15) Estimat Glomerular Filtration Rate 74 ML/MIN (>89) 86 ML/MIN (>89) Lactic Acid Level 2.4 mmol/L (0.4-2.0) 2.4 mmol/L (0.4-2.0) Ammonia 32 MCMOL/L (11-32) Ovalocytes 1+ (NORMAL) Result Diagram: 07/11/17 0707 07/11/17 0707 Imaging Last Impressions Chest X-Ray 07/09/17 0000 Signed Impressions: Service Date/Time: Sunday, July 09, 2017 04:11 - CONCLUSION: 1. Status post right thoracentesis since exam from July 05. Small residual effusions with basilar airspace disease. No pneumothorax. Sandeep Morgan MD Drainage Catheter Insertion 07/06/17 0000 Signed Impressions: Service Date/Time: Thursday, July 06, 2017 00:00 - CONCLUSION: 1. The catheter is draining well. A new valve was placed on the end of the tubing. 4 L of fluid was removed. Bahman Alegre MD Head CT 07/05/17 1504 Signed Impressions: Service Date/Time: June 16:13 - CONCLUSION: No acute intracranial findings. Zack Javed MD Patient/Family Conference Present at Family Conference: Family Conference Time (mins): 40 Issues Discussed: * Palliative care role, purpose, approach * Additional medical, psychosocial, and spiritual history * Patients general health, functional status, and cognitive changes in the months leading up to the current hospitalization * Patient/family understanding of the current medical problems * Patient/family understanding of prognosis * Patients goals of care as best understood from advance directives and/or conversations and/or values * Current medical treatment options and benefits/burdens of those options * Likely scenarios comparing ongoing aggressive care with a transition to comfort measures only * Questions answered to the best of my ability * Palliative care contact information provided Assessment and Plan Disease Oriented Problem List: (1) Hepatic encephalopathy (2) Altered mental status, unspecified (3) Pleural effusion associated with hepatic disorder (4) Alcoholic cirrhosis of liver with ascites (5) Hemorrhage Comment: associated with liver disease. Symptom Scale: (1) Confusion Comment: confusion resolved currently. Tends to fluctate. (2) Pain Comment: resolved with tramadol. has headache Pertinent Non-Medical Issues Psychosocial: Spiritual: Legal: Ethical issues impacting care: Important Contacts Natalie Robert [phone] Prognosis Pt is ES Liver disease. Appropriate for hospice if goals of care are comfort measures only. Code Status: Full Code Plan == capacity- tend to fluctuate, but at my time of visit, pt is not confused, and has capacity to weight medical decisions. == Health care proxy- Pt is . Natalie Robert is proxy by MARÍA yang. == pain- headach, controlled with tramadol Confusion- not confused currently, but likely will fluctate given cirrhosis. == code: Full == goals of care. Spent extensive time speaking with pt and : Reviewed diagnosis of liver disease and when that started. Spoke about the hospitalization in the past. We talked about his end stage liver disease and that unfortunately there is no cure and that it is terminal/ end stage. Reenforced pt that he will decline and offered hospice. Talked about full code, life support peg, trach. Pt endorsed that "I don't want to ." Spoke to him and said, I am sorry, but for him unfortuantely he will pass from his liver disease, and soon. Explained decision :"is not weather you or not, but rather a comfortable vs an uncomfortable ." He still endorses full code. at bedside tearful, is realistic. She does understand that pt will become encephalopathic again. seem more receptive to comfort measures. I encourage and patient to talk things over. == palliative care will follow as clinical condition evolves. Thank you for the opportunity to participate in the care of Mr. Reaves. Attestation To help prompt me to consider important information that might be impacting today's encounter and assessment, information from prior notes written by myself or my colleagues may have been "brought forward" into today's note. My signature on this note, however, is an attestation that I personally performed the exam, history, and/or decision-making noted today, and, unless otherwise indicated, the interactions with patient, family, and staff as well as the review of records all occurred today. I also attest that the listed assessment and stated plan reflect my best clinical judgment today based on the combination of historical information, prior notes, and today's exam/ interactions. When time spent is documented, it refers only to time spent today by the signer, or if indicated, combined time spent today by collaborating physician/nurse practitioner. Elan Dos Santos MD Jul 11, 2017 10:28
--- NOTE | 2017-07-11 11:04 | RADRPT ---
EXAM DATE/TIME: 07/11/2017 10:25 [facility] COMPARISON: CHEST SINGLE AP, July 09, 2017, 4:11. INDICATIONS : Short of breath. MEDICAL HISTORY : Cirrhosis. SURGICAL HISTORY : Hernia repair ENCOUNTER: Subsequent ACUITY: 1 week PAIN SCORE: 0/10 LOCATION: Bilateral chest FINDINGS: A single AP erect view of the chest was obtained and demonstrates increased opacity and diffuse air s pace disease compared to the prior study especially in the upper lobes. There is right pleural effusi on which is now seen extending along the right lateral chest wall. There is no left effusion. The hea rt size remains mildly prominent. The bony thorax is intact. CONCLUSION: 1. Diffuse bilateral airspace disease is now noted most characteristic of pulmonary edema. 2. Increased left effusion. Nicholas Ledezma MD on July 11, 2017 at 11:00 Board Certified Radiologist. This report was verified electronically.
[2017-07-11 12:00] VITALS: BP 110/61; PULSE 102; RESP 18; TEMP 96.9; O2SAT 97
[2017-07-11] MEDS ORDERED: Lactulose Liq PO (12:34)
[2017-07-11] MEDS ORDERED: FURO1TAB62 PO (13:04)
[2017-07-11] MEDS ORDERED: IPRASOL INH (13:05)
--- NOTE | 2017-07-11 13:23 | HHI.DS ---
Discharge Summary Admission Date Jul 05, 2017 at 17:46 Discharge Date: Jul 11, 2017 Admitting Diagnosis AMS,hepatic encephalopathy,anasarca (1) Pleural effusion associated with hepatic disorder Diagnosis: Principal ICD Codes: K76.9 - Liver disease, unspecified; J91.8 - Pleural effusion in other conditions classified elsewhere Status: Chronic (2) Alcoholic cirrhosis of liver with ascites Diagnosis: Principal ICD Codes: K70.31 - Alcoholic cirrhosis of liver with ascites Status: Chronic (3) Hepatic encephalopathy Diagnosis: Principal ICD Codes: K72.90 - Hepatic failure, unspecified without coma Status: Chronic (4) Suicidal ideation Diagnosis: Principal ICD Codes: R45.851 - Suicidal ideations Status: Acute (5) Altered mental status, unspecified Diagnosis: Principal ICD Codes: R41.82 - Altered mental status, unspecified Status: Acute (6) Anasarca Diagnosis: Principal ICD Codes: R60.1 - Generalized edema Status: Chronic Consultants Dr. Elan Dos Santos, Palliative Medicine Brief History This unfortunate 56-year-old male with end-stage liver disease due to alcoholic cirrhosis is sent from the long-term for altered mental status. Patient is somewhat confused due to underlying alcoholic encephalopathy and can't give a reliable history so history is obtained primarily from his who is at bedside and from review of outpatient records. I additionally discussed the case with Dr. Liborio Wright who has been seeing the patient at the long-term this week. Patient reportedly became somewhat violent today trying to harm himself and stated clearly that he wanted to and wanted to kill himself according to Dr. Wright. Patient threw himself against a wall and into the bed and onto the floor. His reportedly had to restrain him and Dr. Wright witnessed the events. Patient was therefore sent to the ER for further evaluation from a psychiatric standpoint and for medical stabilization as appropriate. He's had no fall or injury other than when he threw himself on the floor. There was no head injury or loss of consciousness. Review of outpatient records reveal the patient has been hospitalized multiple times in the last year mostly for hepatic encephalopathy and recurrent pleural effusion with most recent hospitalization lasting approximately a month and a half at [facility] in [place]. He was just discharged from that facility to a local long-term 2 days ago per report. Patient has periods of lucidity interspersed with periods of confusion and some apparent hallucinations. He reportedly has not tried to harm himself before but does realize that he is quite sick and that we may not have a lot to offer him from medical standpoint. As this with he and his both of whom acknowledged his serious condition. When I discussed hospice with them, the became somewhat agitated and tearful and stated that they had "gone down that road before" and did not want hospice at this point. I asked further for clarification and she stated that hospice had talked with her before but that her "had improved some" and so she wanted him to "have a chance at rehabilitation". reports that she is power of contracts attorney and healthcare surrogate. CBC/BMP: 07/11/17 0707 07/11/17 0707 Significant Findings Laboratory Tests Test 07/09/17 04:00 07/09/17 05:48 07/09/17 11:51 07/11/17 07:07 Blood Gas HCO3 28 mmol/L (22-26) Blood Gas Base Excess 4.1 mmol/L (-2-2) Blood Gas Oxygen Saturation 89 % (90-100) Arterial Blood pH 7.44 (7.380-7.420) Arterial Blood Partial Pressure CO2 43 mmHg (38-42) Arterial Blood Oxygen Content 10.9 Vol % (12.0-20.0) Blood Gas Hemoglobin 8.7 G/DL (12.0-16.0) White Blood Count 13.0 TH/MM3 (4.0-11.0) Red Blood Count 2.27 MIL/MM3 (4.50-5.90) 2.11 MIL/MM3 (4.50-5.90) Hemoglobin 8.9 GM/DL (13.0-17.0) 8.3 GM/DL (13.0-17.0) Hematocrit 25.6 % (39.0-51.0) 24.1 % (39.0-51.0) Mean Corpuscular Volume 113.0 FL (80.0-100.0) 114.6 FL (80.0-100.0) Mean Corpuscular Hemoglobin 39.5 PG (27.0-34.0) 39.6 PG (27.0-34.0) Platelet Count 92 TH/MM3 (150-450) 51 TH/MM3 (150-450) Neutrophils (%) (Auto) 80.0 % (16.0-70.0) 79.9 % (16.0-70.0) Lymphocytes (%) (Auto) 5.6 % (9.0-44.0) Monocytes (%) (Auto) 13.3 % (0.0-8.0) 10.2 % (0.0-8.0) Neutrophils # (Auto) 10.4 TH/MM3 (1.8-7.7) 8.0 TH/MM3 (1.8-7.7) Lymphocytes # (Auto) 0.7 TH/MM3 (1.0-4.8) 0.9 TH/MM3 (1.0-4.8) Monocytes # (Auto) 1.7 TH/MM3 (0-0.9) 1.0 TH/MM3 (0-0.9) Platelet Estimate LOW (NORMAL) LOW (NORMAL) Prothrombin Time 20.0 SEC (9.8-11.6) Activated Partial Thromboplast Time 45.7 SEC (24.3-30.1) Random Glucose 115 MG/DL (74-106) 118 MG/DL (74-106) Magnesium Level 1.4 MG/DL (1.5-2.5) Sodium Level 134 MEQ/L (136-145) Chloride Level 96 MEQ/L (98-107) 97 MEQ/L (98-107) Estimat Glomerular Filtration Rate 74 ML/MIN (>89) 86 ML/MIN (>89) Lactic Acid Level 2.4 mmol/L (0.4-2.0) 2.4 mmol/L (0.4-2.0) Ovalocytes 1+ (NORMAL) Carbon Dioxide Level 35.1 MEQ/L (21.0-32.0) Anion Gap 4 MEQ/L (5-15) PE at Discharge General: NAD, AAOx3 Chest: Good air movement in both lungs. CT in place Cardiac: Regular Abd: +BS, soft ND/NT Ext: Bilateral LE pitting edema to the thighs Hospital Course (1) Pleural effusion associated with hepatic disorder ICD Codes: K76.9 - Liver disease, unspecified; J91.8 - Pleural effusion in other conditions classified elsewhere Status: Chronic Plan: - Pt has recurrent pleural effusions related to his liver cirrhosis - Patient had chest tube placed approximately 1 week ago per the pts - They were supposed to drain 600mL out of this daily - The pt has fluid consistently draining out from around the tubes insertion site - Interventional radiology has been consulted to try to access the tube to try to continue drainage - CXR at admission noted large right pleural effusion opacifying the entire right hemithorax. - Dr Alegre replaced his nonfunction drain with Aspira system. Removed 4L at the time of exchange and pt/ are educated to remove 1.5-2L per day. - 2 liters drained from Aspira system (07/11). Pt stated that he felt better afterward. - On 07/08 pt began coughing and coughed up some thick blood tinged secretions and then [facility] was called for respiratory distress and [place] [facility] was seen by the intensivists on 07/09. Pt had clinical improvement to his baseline breathing effort per the pts . ABG on 07/09 demonstrated metabolic alkalosis with pH of 7.44/PaCO2 43/PA O2 of 66/bicarbonate of 28. - CXR (07/09) bilateral pleural effusions. He received Lasix 40 mg IV by the residents who responded to the [facility]. - Pt was transferred back to the [facility] Hospitalist team on 07/10/17 -Pt appears stable on 3L NC O2 - Cont. daily drainage from the right CT of 1-2L daily - Pt's prognosis is quite poor. - Pt met with Palliative today, Dr. Dos Santos. - Pt requests continued Full Codes Status, and declines hospice at this time - Discharge to SNF - see discharge orders - Pt is at high risk for hospital readmission - Hospice would be appropriate at this time. (2) Alcoholic cirrhosis of liver with ascites ICD Codes: K70.31 - Alcoholic cirrhosis of liver with ascites Status: Chronic Plan: - Pt is a 56 y/o WM with alcoholic ESLD, portal HTN, hepatic encephalopathy, recurrent ascites, recurrent pleural effusion, thrombocytopenia, and BRENT - Pt was sent over from a local rehab center for AMS and suicidal ideation - Pt with significant anasarca/edema - He is on Aldactone 50mg po BID and Lasix 40mg po in Am and 20mg in PM - Attempt to diurese and control portal hypertension as systemic blood pressure allows. - End-of-life issues were previously discussed with patient and his . refuses hospice at this point. She understands that we may not have much more medically to offer her . - Pt still with significant LE edema - Cont. Lasix to 20mg PO bid upon discharge - Pt is a DNR. (3) Hepatic encephalopathy ICD Codes: K72.90 - Hepatic failure, unspecified without coma Status: Chronic Plan: - Recurrent issue. - Pt is on Lactulose 30mL Q6H PRN - His Ammonia level came down from 74 to 26 - Lactulose increased to 30mL QID on 07/09 - Ammonia level 32 on 07/09 (4) Suicidal ideation ICD Codes: R45.851 - Suicidal ideations Status: Acute Plan: - Psychiatry has been consulted. - Pt reportedly tried to harm himself at nursing home facility - Psych cleared from for discharge (5) Altered mental status, unspecified ICD Codes: R41.82 - Altered mental status, unspecified Status: Acute Plan: - Improved, this is a recurrent issue. - Likely associated with hepatic encephalopathy and hyperammonemia. - Continue lactulose. (6) Anasarca ICD Codes: R60.1 - Generalized edema Status: Chronic Plan: - See above Pt Condition on Discharge: Stable Discharge Disposition: Discharge to SNF Discharge Instructions DIET: Follow Instructions for: As Tolerated, No Restrictions Activities you can perform: Regular-No Restrictions Follow up Referrals: PCP Follow-up - [address] High New Medications: Furosemide (Lasix) 20 Mg Tab 20 MG PO BID for liver failure, #60 TAB 0 Refills Ipratropium-Albuterol Neb (Duoneb) 0.5-2.5 Mg/3 Ml Neb 1 NEBULE INH Q4HR NEB for SHORTNESS OF BREATH, #120 NEBULE 0 Refills [Lactulose Liq] () 30 ML SYRP 30 ML PO QID for encephalopathy for 30 Days Continued Medications: Cholecalciferol (Vitamin D3) 50,000 Unit Cap 83547 UNITS PO Q7D for Nutritional Supplement, #30 CAP 0 Refills Folic Acid (Folic Acid) 0.4 Mg Tab 1000 MCG PO DAILY for Nutritional Supplement, TAB 0 Refills Lactulose Liq (Lactulose Liq) 10 Gm/15 Ml Soln 30 ML PO Q6H PRN for Nutritional Supplement, ML 0 Refills Lamotrigine (Lamotrigine) 200 Mg Tab 200 MG PO HS for Control Seizures, #30 TAB 0 Refills Nadolol (Nadolol) 20 Mg Tab 20 MG PO DAILY, #30 TAB 0 Refills Ondansetron (Zofran) 4 Mg Tab 4 MG PO Q8HR PRN for NAUSEA OR VOMITING, TAB 0 Refills Ranitidine (Zantac) 150 Mg Tab 150 MG PO DAILY for Reduce Stomach Acid, #30 TAB 0 Refills Spironolactone (Spironolactone) 50 Mg Tab 50 MG PO BIDPC, #60 TAB 0 Refills Discontinued Medications: Aspirin (Aspirin) 81 Mg Chew 81 MG PO DAILY, TAB 0 Refills Ryan Wright DO Jul 11, 2017 13:23
[2017-07-11 15:40] VITALS: BP 116/60; PULSE 101; RESP 18; TEMP 99.4; O2SAT 93
== END 2017-07-11 19:11 | DRG 442 ==
LOC: NEPC 14:29 → NEDA 17:46 → NEDH 22:23 → N05A 07-06 12:43 → N03A 07-09 04:44 → N06A 07-10 22:55
PROVIDERS: ADMIT Hospitalist; ATTEND Hospitalist
PROC: 0W29X0Z Change Drainage Device in Right Pleural Cavity, External Approach (ICD-10-PCS; principal; 2017-07-06)
DX: K72.90 Hepatic failure, unspecified without coma (principal); K76.6 Portal hypertension; J91.8 Pleural effusion in other conditions classified elsewhere; E87.4 Mixed disorder of acid-base balance; E72.20 Disorder of urea cycle metabolism, unspecified; E46 Unspecified protein-calorie malnutrition; Z68.27 Body mass index [BMI] 27.0-27.9, adult; I85.00 Esophageal varices without bleeding; R45.851 Suicidal ideations; E87.1 Hypo-osmolality and hyponatremia; K70.31 Alcoholic cirrhosis of liver with ascites; Z66 Do not resuscitate; R60.1 Generalized edema; F17.200 Nicotine dependence, unspecified, uncomplicated; E55.9 Vitamin D deficiency, unspecified; R06.03 Acute respiratory distress; R51 Headache; F43.21 Adjustment disorder with depressed mood
CPT/HCPCS: 36600; 70450; 71045; 80048; 80053; 80307; 81001; 82140; 82805; 82948; 83605; 83735; 84443; 85007; 85025; 85027; 85610; 85730; 87086; 94640; 94664; 99285; J0696; J1940; J3475; P9047; P9612

== ENCOUNTER 2017-08-19 12:59 | Inpatient (IN) | payer MEDICARE ==
[2017-08-19] VITALS (11 sets, daily range): BP systolic 88–107; BP diastolic 50–67; PULSE 72–90; RESP 18–20; TEMP 98.5–98.6; O2SAT 97–99
[~2017-08-19] VITALS: Ht 182.9 cm; Wt 73.6 kg
[~2017-08-19 12:59] MED LIST: CHOL1CAP34 PO; FOLI400T PO; FURO1TAB62 PO; IPRASOL INH; LACT10SO PO; LAMO200T PO; Lactulose Liq PO; NADO20TA PO; SPIR50TA PO; ZANT150T2 PO; ZOFR4TAB PO
[2017-08-19] MEDS ORDERED: IOHEXOL 350 MG/ML 10 ML VIAL (for RAD DIAG) IVCONTRAST ONE (13:00)
[2017-08-19] MEDS ORDERED: SODIUM CHLOR 0.9% 1000 ML INJ 1,000 ML IV SCH (13:11)
[2017-08-19] MEDS ORDERED: SODIUM CHLORIDE 0.9% FLUSH 10 ML FLUSH IV FLUSH PRN ×2 (13:15→19:15)
--- NOTE | 2017-08-19 13:48 | RADRPT ---
EXAM DATE/TIME: 08/19/2017 13:24 [facility] COMPARISON: CHEST SINGLE AP, July 11, 2017, 10:25. INDICATIONS : Syncope. MEDICAL HISTORY : Cirrhosis. SURGICAL HISTORY : Hernia repair ENCOUNTER: Initial ACUITY: 1 day PAIN SCORE: Non-responsive. LOCATION: Bilateral chest FINDINGS: Compared with July 11 bilateral air space disease has improved. There is some residual right basil ar air space disease and right pleural effusion. No pneumothorax. CONCLUSION: 1. Right basilar airspace disease and small right effusion. Overall there is improvement compared wit h July 11 comparison. Heart size normal. Left lung relatively clear. Sandeep Morgan MD on August 19, 2017 at 13:42 Board Certified Radiologist. This report was verified electronically.
--- NOTE | 2017-08-19 13:49 | PD ---
HPI Chief Complaint: Altered Mental Status Time Seen by Provider: 13:02 Travel History International Travel<30 days: No Contact w/Intl Traveler<30days: No Traveled to known affect area: No History of Present Illness HPI Patient is a 57-year-old male sent by gilbert Rodriguez for evaluation of altered mental status. Per EMS report patient has been more lethargic since yesterday. He is normally verbal, [place] staff states that he has been lethargic and nonverbal since that time. Patient is not verbally responding, he is withdrawing from pain. He appears jaundiced however EVAC said that this is his baseline. Patient has medical history significant for end-stage renal disease, cirrhosis, hepatic encephalopathy, alcoholism, esophageal varices. PFSH Past Medical History Cirrhosis: Yes Gastrointestinal Disorders: Yes (PORTAL HTN, CIRRHOSIS, HERNIA, ESOPHAGEAL VARICES) Hiatal Hernia: Yes (HERNIA REPAIR) Respiratory: Yes Renal Failure: Yes Sleep Apnea: Yes (CPAP AT HOME) Thyroid Disease: No Ulcer: No Past Surgical History Abdominal Surgery: Yes (HERNIA REPAIR) Cardiac Surgery: No Genitourinary Surgery: No Gynecologic Surgery: No Neurologic Surgery: No Thoracic Surgery: No Other Surgery: Yes Social History Alcohol Use: No (HX ALCOHOL ABUSE ) Tobacco Use: No (30 YEARS AGO) Substance Use: No Allergies-Medications (Allergen,Severity, Reaction): Coded Allergies: No Known Allergies (Verified Allergy, Unknown, 07/05/17) Reported Meds & Prescriptions Reported Meds & Active Scripts Active Duoneb (Ipratropium-Albuterol Neb) 0.5-2.5 Mg/3 Ml Neb 1 Nebule INH Q4HR NEB Lasix (Furosemide) 20 Mg Tab 20 Mg PO BID [Lactulose Liq] 30 ML Syrp 30 Ml PO QID 30 Days Reported Zofran (Ondansetron HCl) 4 Mg Tab 4 Mg PO Q8HR PRN Lactulose Liq (Lactulose) 10 Gm/15 Ml Soln 30 Ml PO Q6H PRN Zantac (Ranitidine HCl) 150 Mg Tab 150 Mg PO DAILY Spironolactone 50 Mg Tab 50 Mg PO BIDPC Lamotrigine 200 Mg Tab 200 Mg PO HS Vitamin D3 (Cholecalciferol) 50,000 Unit Cap 50,000 Units PO Q7D Nadolol 20 Mg Tab 20 Mg PO DAILY Folic Acid 0.4 Mg Tab 1,000 Mcg PO DAILY Review of Systems ROS Limitations: Poor Historian Except as stated in HPI: all other systems reviewed are Neg Skin: Positive Change in Pigmentation Neurologic: Positive: Weakness, Change in Mentation Physical Exam Narrative GENERAL: Well-developed, well-nourished, lethargic male. SKIN: Warm and dry. Jaundice HEAD: Atraumatic. Normocephalic. EYES: Pupils equal and round. Positive scleral icterus. No injection or drainage. ENT: No nasal bleeding or discharge. Mucous membranes pink and moist. NECK: Trachea midline. No JVD. CARDIOVASCULAR: Regular rate and rhythm. RESPIRATORY: No accessory muscle use. Diminished in bases GASTROINTESTINAL: Abdomen soft, non-tender, nondistended. Hepatic and splenic margins not palpable. Positive bowel sounds, no rebound, no guarding MUSCULOSKELETAL: Extremities without clubbing, cyanosis, or edema. No obvious deformities. NEUROLOGICAL: Lethargic, arouses with sternal rub. No obvious cranial nerve deficits. Motor grossly within normal limits. Five out of 5 muscle strength in the arms and legs. Data Data Last Documented VS Vital Signs Date Time Temp Pulse Resp B/P (MAP) Pulse Ox O2 Delivery O2 Flow Rate FiO2 08/19/17 16:12 18 97 Nasal Cannula 2.00 08/19/17 15:01 82 98/66 (77) 08/19/17 13:24 98.6 Orders Orders Ammonia (08/19/17 13:11) Complete Blood Count With Diff (08/19/17 13:11) Comprehensive Metabolic Panel (08/19/17 13:11) Creatine Kinase (Cpk) (08/19/17 13:11) Prothrombin Time / Inr (Pt) (08/19/17 13:11) Act Partial Throm Time (Ptt) (08/19/17 13:11) Urinalysis - C+S If Indicated (08/19/17 13:11) Lactic Acid Sepsis Protocol (08/19/17 13:11) Blood Culture (08/19/17 13:11) Chest, Single Ap (08/19/17 13:11) Blood Glucose (08/19/17 13:11) Ecg Monitoring (08/19/17 13:11) Iv Access Insert/Monitor (08/19/17 13:11) Cath For Specimen (08/19/17 13:11) Oximetry (08/19/17 13:11) Sodium Chloride 0.9% Flush (Ns Flush) (08/19/17 13:15) Sodium Chlor 0.9% 1000 Ml Inj (Ns 1000 M (08/19/17 13:11) Lamictal (Lamotrigine) (08/19/17 13:11) Ct Brain W/O Iv Contrast(Rout) (08/19/17 ) Sodium Chlor 0.9% 1000 Ml Inj (Ns 1000 M (08/19/17 14:30) Ct Abd/Pel W Iv Contrast(Rout) (08/19/17 ) Sodium Chlor 0.9% 1000 Ml Inj (Ns 1000 M (08/19/17 15:00) Lactic Acid (08/19/17 15:42) Iohexol 350 Inj (Omnipaque 350 Inj) (08/19/17 13:00) Electrocardiogram (08/19/17:18) Diet Npo Except Meds (08/19/17 Dinner) Admit To Inpatient (08/19/17 ) Scd Bilateral/Knee High ADRIENNE.QSHIFT (08/19/17 16:56) Vital Signs (Adult) ADRIENNE.Q4H (08/19/17 16:56) Survey Questionnaire Designer / Telemetry ADRIENNE.Q8H (08/19/17 16:56) Inpatient Certification (08/19/17 ) Folic Acid (Folate) (08/20/17 09:00) Furosemide (Lasix) (08/19/17 21:00) Albuterol-Ipratropium Neb (Duoneb Neb) (08/19/17 20:00) Lamotrigine (Lamictal) (08/19/17 21:00) Spironolactone (Aldactone) (08/19/17 18:00) Famotidine (Pepcid) (08/20/17 09:00) Lactulose Liq (Lactulose Liq) (08/19/17 18:00) Activity Bed Rest With Brp (08/19/17 16:59) Comprehensive Metabolic Panel (08/20/17 06:00) Magnesium (Mg) (08/20/17 06:00) Prothrombin Time / Inr (Pt) (08/20/17 06:00) Complete Blood Count With Diff (08/20/17 06:00) Ondansetron Inj (Zofran Inj) (08/19/17 17:00) Acetaminophen (Tylenol) (08/19/17 17:00) Chest, Single Ap (08/19/17 17:04) Admit Order (Ed Use Only) (08/19/17 17:06) Labs Laboratory Tests Test 08/19/17 13:00 08/19/17 13:37 08/19/17 15:32 White Blood Count 8.9 TH/MM3 Red Blood Count 3.51 MIL/MM3 Hemoglobin 12.2 GM/DL Hematocrit 34.8 % Mean Corpuscular Volume 99.1 FL Mean Corpuscular Hemoglobin 34.7 PG Mean Corpuscular Hemoglobin Concent 35.0 % Red Cell Distribution Width 18.3 % Platelet Count 127 TH/MM3 Mean Platelet Volume 6.4 FL Neutrophils (%) (Auto) 63.0 % Lymphocytes (%) (Auto) 18.2 % Monocytes (%) (Auto) 12.4 % Eosinophils (%) (Auto) 5.8 % Basophils (%) (Auto) 0.6 % Neutrophils # (Auto) 5.6 TH/MM3 Lymphocytes # (Auto) 1.6 TH/MM3 Monocytes # (Auto) 1.1 TH/MM3 Eosinophils # (Auto) 0.5 TH/MM3 Basophils # (Auto) 0.1 TH/MM3 CBC Comment DIFF FINAL Differential Comment Prothrombin Time 15.7 SEC Prothromb Time International Ratio 1.6 RATIO Activated Partial Thromboplast Time 41.7 SEC Urine Color YELLOW Urine Turbidity CLEAR Urine pH 7.5 Urine Specific [place] 1.010 Urine Protein NEG mg/dL Urine Glucose (UA) NEG mg/dL Urine Ketones NEG mg/dL Urine Occult Blood NEG Urine Nitrite NEG Urine Bilirubin NEG Urine Urobilinogen 2.0 MG/DL Urine Leukocyte Esterase NEG Urine RBC 1 /hpf Urine WBC 2 /hpf Urine Hyaline Casts 13 /lpf Urine Mucus FEW /lpf Microscopic Urinalysis Comment CATH-CULT NOT IND Blood Urea Nitrogen 10 MG/DL Creatinine 1.04 MG/DL Random Glucose 99 MG/DL Total Protein 6.1 GM/DL Albumin 2.6 GM/DL Calcium Level 9.0 MG/DL Alkaline Phosphatase 164 U/L Aspartate Amino Transf (AST/SGOT) 44 U/L Alanine Aminotransferase (ALT/SGPT) 29 U/L Total Bilirubin 8.1 MG/DL Sodium Level 134 MEQ/L Potassium Level 3.5 MEQ/L Chloride Level 95 MEQ/L Carbon Dioxide Level 29.1 MEQ/L Anion Gap 10 MEQ/L Estimat Glomerular Filtration Rate 74 ML/MIN Lactic Acid Level 2.4 mmol/L 1.9 mmol/L Ammonia 28 MCMOL/L Total Creatine Kinase 49 U/L MDM Medical Decision Making Medical Screen Exam Complete: Yes Emergency Medical Condition: Yes Medical Record Reviewed: Yes Interpretation(s) Vital Signs Date Time Temp Pulse Resp B/P (MAP) Pulse Ox O2 Delivery O2 Flow Rate FiO2 08/19/17 13:24 97 Nasal Cannula 2.00 08/19/17 13:24 98.6 80 18 88/50 (63) Differential Diagnosis Sepsis versus UTI versus hyperammonemia versus metabolic abnormality versus aspiration pneumonia versus other Narrative Course Patient is a 57-year-old male presenting to the emergency department from [facility] for evaluation of altered mental status. Patient is hypotensive on arrival, labs and imaging ordered and pending. IV access established, patient placed on telemetry monitoring continuous pulse oximetry. Sepsis workup initiated. CBC with no acute findings Chemistry with no acute findings Lactic acid 2.4, repeat lactic acid after 3 L of IV fluids is 1.9 Urinalysis is unremarkable Chest x-ray shows right basilar airspace disease with small right effusion. Improved when compared to prior on July 11 CT scan of the abdomen and pelvis shows liver cirrhosis with severe varices. Trace free fluid. Bowel containing ventral hernia without obstruction. Numerous gallstones. Moderate right effusion with compressive atelectasis. Gynecomastia. Mild compression fracture through superior endplate of T12 with mild retropulsion. CT of the brain shows no acute intracranial abnormalities. Systolic blood pressure was in the upper 80s on arrival, patient was given a total of 3 L of IV fluids. Blood pressure was reassessed at 98 systolic. After discussing admission with Dr. Knight blood pressure was again reassessed and was found to be in the 80s. Discussed with Dr. hayden my attending physician, a central line will be placed, re-paged Dr. Knight. Dr. Mckay placed central line and ordered levophed drip. Please see her documentation. Admit order placed for critical care. Discussed with Dr. Mclaughlin, mammalogy teacher. She stated that she would place admit orders. Levo fed was ordered from pharmacy, currently awaiting delivery. Sepsis Criteria Severe Sepsis (+one): Hypotension Diagnosis Primary Impression: Altered mental status Qualified Codes: R41.82 - Altered mental status, unspecified Additional Impressions: Hypotension Qualified Codes: I95.9 - Hypotension, unspecified Pleural effusion associated with hepatic disorder Admitting Information Admitting Physician Requests: Admit Condition: Stable Sagrario Balderrama Aug 19, 2017 13:49
[2017-08-19 14:19] LABS: AUTOMATED NEUTROPHIL # 5.6 TH/MM3 (1.8-7.7); BASOPHIL # 0.1 TH/MM3 (0-0.2); BASOPHIL % 0.6 % (0.0-2.0); EOSINOPHIL # 0.5 TH/MM3 (0-0.4); EOSINOPHIL % 5.8 % (0.0-4.0); HEMATOCRIT 34.8 % (39.0-51.0); HEMOGLOBIN 12.2 GM/DL (13.0-17.0); LYMPH % 18.2 % (9.0-44.0); LYMPHOCYTE # 1.6 TH/MM3 (1.0-4.8); MEAN CELL VOLUME 99.1 FL (80.0-100.0); MEAN CORPUSCULAR HEMOGLOBIN 34.7 PG (27.0-34.0); MEAN PLATELET VOLUME 6.4 FL (7.0-11.0); MONO % 12.4 % (0.0-8.0); MONOCYTE # 1.1 TH/MM3 (0-0.9); PLATELET COUNT 127 TH/MM3 (150-450); RED BLOOD COUNT 3.51 MIL/MM3 (4.50-5.90); RED CELL DISTRIBUTION WIDTH 18.3 % (11.6-17.2); WHITE BLOOD COUNT 8.9 TH/MM3 (4.0-11.0)
[2017-08-19 14:24] LABS: INTERNATIONAL NORMALIZED RATIO 1.6 RATIO; PROTHROMBIN TIME - PATIENT 15.7 SEC (9.8-11.6)
--- NOTE | 2017-08-19 14:26 | PD ---
Physical Exam Date Seen by Provider: Aug 19, 2017 Narrative Patient presents to us from a assisted facility for the evaluation of altered mental status. The patient is unable to give any history at all. Data Data Last Documented VS Vital Signs Date Time Temp Pulse Resp B/P (MAP) Pulse Ox O2 Delivery O2 Flow Rate FiO2 08/19/17 13:24 97 Nasal Cannula 2.00 08/19/17 13:24 98.6 80 18 88/50 (63) Orders Orders Ammonia (08/19/17 13:11) Complete Blood Count With Diff (08/19/17 13:11) Comprehensive Metabolic Panel (08/19/17 13:11) Creatine Kinase (Cpk) (08/19/17 13:11) Prothrombin Time / Inr (Pt) (08/19/17 13:11) Act Partial Throm Time (Ptt) (08/19/17 13:11) Urinalysis - C+S If Indicated (08/19/17 13:11) Lactic Acid Sepsis Protocol (08/19/17 13:11) Blood Culture (08/19/17 13:11) Chest, Single Ap (08/19/17 13:11) Blood Glucose (08/19/17 13:11) Ecg Monitoring (08/19/17 13:11) Iv Access Insert/Monitor (08/19/17 13:11) Cath For Specimen (08/19/17 13:11) Oximetry (08/19/17 13:11) Sodium Chloride 0.9% Flush (Ns Flush) (08/19/17 13:15) Sodium Chlor 0.9% 1000 Ml Inj (Ns 1000 M (08/19/17 13:11) Lamictal (Lamotrigine) (08/19/17 13:11) Ct Brain W/O Iv Contrast(Rout) (08/19/17 ) Labs Laboratory Tests Test 08/19/17 13:00 08/19/17 13:37 White Blood Count 8.9 TH/MM3 Red Blood Count 3.51 MIL/MM3 Hemoglobin 12.2 GM/DL Hematocrit 34.8 % Mean Corpuscular Volume 99.1 FL Mean Corpuscular Hemoglobin 34.7 PG Mean Corpuscular Hemoglobin Concent 35.0 % Red Cell Distribution Width 18.3 % Platelet Count 127 TH/MM3 Mean Platelet Volume 6.4 FL Neutrophils (%) (Auto) 63.0 % Lymphocytes (%) (Auto) 18.2 % Monocytes (%) (Auto) 12.4 % Eosinophils (%) (Auto) 5.8 % Basophils (%) (Auto) 0.6 % Neutrophils # (Auto) 5.6 TH/MM3 Lymphocytes # (Auto) 1.6 TH/MM3 Monocytes # (Auto) 1.1 TH/MM3 Eosinophils # (Auto) 0.5 TH/MM3 Basophils # (Auto) 0.1 TH/MM3 CBC Comment DIFF FINAL Differential Comment MDM Supervised Visit with GLADIS: Yes Narrative Course I, Dr. Mckay, have reviewed the advance practice practitioner's documentation and am in agreement, met with the patient face to face, made the diagnosis, and the medical decision making was done by me. *My assessment and Findings: The patient is lying on the stretcher with his neck flexed and his head up off the bed. He has good muscle tone. He has no eye or verbal response. His mouth looks dry. Septic workup is in process. Please see Sagrario Palmer NP's note for results of laboratory and radiographic evaluation, ED course, final diagnosis and disposition Elda Mckay MD Aug 19, 2017 14:26
[2017-08-19 14:29] LABS: BILIRUBIN, URINE NEG (NEG); BLOOD, URINE NEG (NEG); GLUCOSE,URINE NEG (NEG); HYALINE CAST, URINE 13 /lpf (RARE); KETONE, URINE NEG (NEG); MUCUS URINE FEW /lpf (OCC); NITRITE,URINE NEG (NEG); PH, URINE 7.5 (5.0-8.5); URINE COLOR YELLOW (YELLW/STRAW); URINE LEUKOCYTE ESTERASE NEG (NEG)
[2017-08-19] MEDS ORDERED: SODIUM CHLOR 0.9% 1000 ML INJ 1,000 ML IV ONE ×2 (14:30→15:00)
[2017-08-19 14:33] LABS: ALBUMIN 2.6 GM/DL (3.4-5.0); AST (GOT) 44 U/L (15-37); BICARBONATE 29.1 MEQ/L (21.0-32.0); BLOOD UREA NITROGEN 10 MG/DL (7-18); CHLORIDE 95 MEQ/L (98-107); CREATININE 1.04 MG/DL (0.60-1.30); GLOMERULAR FILTRATION RATE 74 ML/MIN (>89); GLUCOSE,RANDOM 99 MG/DL (74-106); SODIUM (NA) 134 MEQ/L (136-145)
[2017-08-19 14:34] LABS: ALT (GPT) 29 U/L (12-78)
[2017-08-19 14:36] LABS: ALKALINE PHOSPHATASE 164 U/L (45-117); LACTIC ACID SEPSIS PROTOCOL 2.4 mmol/L (0.4-2.0); TOTAL BILIRUBIN ADULT 8.1 MG/DL (0.2-1.0); TOTAL PROTEIN 6.1 GM/DL (6.4-8.2)
--- NOTE | 2017-08-19 14:40 | RADRPT ---
EXAM DATE/TIME: 08/19/2017 14:13 [facility] COMPARISON: No previous studies available for comparison. INDICATIONS : Altered mental status. RADIATION DOSE: 35.64 CTDIvol (mGy) MEDICAL HISTORY : Hypertension. Cirrhosis. Esophageal varicies, ETOH SURGICAL HISTORY : Hernia ENCOUNTER: Initial ACUITY: 1 day PAIN SCALE: 0/10 LOCATION: cranial TECHNIQUE: Multiple contiguous axial images were obtained of the head. Using automated exposure control and adj ustment of the mA and/or kV according to patient size, radiation dose was kept as low as reasonably a chievable to obtain optimal diagnostic quality images. DICOM format image data is available electro nically for review and comparison. FINDINGS: CEREBRUM: The ventricles are normal for age. No evidence of midline shift, mass lesion, hemorrhage or acute in farction. No extra-axial fluid collections are seen. POSTERIOR FOSSA: The cerebellum and brainstem are intact. The 4th ventricle is midline. The cerebellopontine angle i s unremarkable. EXTRACRANIAL: The visualized portion of the orbits is intact. SKULL: The calvaria is intact. No evidence of skull fracture. CONCLUSION: 1. No acute intracranial abnormalities. No significant change from July 05. Sandeep Morgan MD on August 19, 2017 at 14:37 Board Certified Radiologist. This report was verified electronically.
--- NOTE | 2017-08-19 15:58 | RADRPT ---
EXAM DATE/TIME: 08/19/2017 15:39 [facility] COMPARISON: No previous studies available for comparison. INDICATIONS : Jaundice, cirrhosis. IV CONTRAST: 100 cc Omnipaque 350 (iohexol) IV ORAL CONTRAST: No oral contrast ingested. RADIATION DOSE: 12.63 CTDIvol (mGy) MEDICAL HISTORY : Hernia, hiatal. Renal failure, acute. Hypertension.Cirrhosis. SURGICAL HISTORY : None. ENCOUNTER: Initial ACUITY: 1 day PAIN SCALE: Non-responsive LOCATION: lower quadrant TECHNIQUE: Volumetric scanning of the abdomen and pelvis was performed. Using automated exposure control and ad justment of the mA and/or kV according to patient size, radiation dose was kept as low as reasonably achievable to obtain optimal diagnostic quality images. DICOM format image data is available electro nically for review and comparison. FINDINGS: There is a moderate-sized right pleural effusion with compressive atelectasis in the right lung. Mini mal left basilar atelectasis. Healing left lower rib fracture. There is liver cirrhosis. Spleen mildly prominent in size. Extensive varices noted around the distal esophagus and extending into the upper retroperitoneal region especially around the left kidney and s pleen. Splenic varices are markedly enlarged and measure up to 3.1 cm in diameter. Multiple gallstones. No significant biliary ductal dilatation. The bowel containing ventral hernia without evidence for obstruction. No free air. Trace free fluid i n the abdomen. There is a mild compression fracture through the superior plate of T12 with minimal re tropulsion. CONCLUSION: 1. Liver cirrhosis with severe varices. Trace free fluid. 2. Bowel containing ventral hernia without bowel obstruction. 3. Numerous gallstones. 4. Moderate right effusion with compressive atelectasis. 5. Gynecomastia. 6. Mild compression fracture through superior plate of T12 with mild retropulsion. Sandeep Morgan MD on August 19, 2017 at 15:52 Board Certified Radiologist. This report was verified electronically.
[2017-08-19] MEDS ORDERED: ONDANSETRON HCL 4 MG/2 ML VIAL IV PRN (17:00)
[2017-08-19] MEDS ORDERED: ACETAMINOPHEN 325 MG TAB PO PRN (17:00)
--- NOTE | 2017-08-19 17:09 | HHI.HP ---
HPI Service [facility]ists Primary Care Physician Dr. High Admission Diagnosis AMS Chief Complaint: AMS Travel History International Travel<30 Days: No Contact w/Intl Traveler <30 Da: No Traveled to Known Affected Are: No History of Present Illness Mr. Mccormack is an unfortunate 56 y/o WM with end-stage liver disease due to alcoholic cirrhosis, portal HTN, hepatic encephalopathy, recurrent ascites, recurrent pleural effusion, thrombocytopenia, and BRENT who was sent to the ED from the skilled nursing for altered mental status. Patient is somewhat confused at the time of examination and unable to provide any reliable history so history was obtained primarily from discussion with the ED staff/physician and and from review of previous and outpatient records. Pt was previously admitted in June 2017 with AMS and recurrent pleural effusions related to his liver cirrhosis. At that time he was having issues with his chest tube which was replaced as his drain was nonfunctioning. Since that admission his CT has been removed. Pt has recurrent issues with AMS felt to be secondary to hepatic encephalopathy. His labs at admission noted Ammonia level was 26. His LFTs noted a slight elevation in his TBili to 8.1 when compared to previous labs in June when it was 6. Imaging studies performed in the ED included Head CT which was negative for any acute changes. CT Abd/pelvis with IV contrast noted liver cirrhosis with severe varices, trace free fluid, bowel containing ventral hernia without bowel obstruction, numerous gallstones, moderate right effusion with compressive atelectasis, and a mild compression fracture through superior plate of T12 with mild retropulsion. His WBC count is 8 and he has been afebrile. Pt has been on Lactulose 30mL QID. Review of Systems ROS Limitations: Altered Mental Status Past Family Social History Past Medical History Alcoholism with alcoholic cirrhosis and encephalopathy End-stage liver disease Ascites Chronic edema Esophageal varices Hepatic failure induced neuropathy Sleep apnea Portal hypertension Hyperammonemia Thrombocytopenia Recurrent right pleural effusion Vitamin D deficiency Large umbilical hernia Past Surgical History Ventral hernia repair EGD performed 2014 revealed grade 1 esophageal varices with no bleeding, diffuse gastritis Chest tube placement in latter 2016 Reported Medications Duoneb (Ipratropium-Albuterol Neb) 0.5-2.5 Mg/3 Ml Neb 1 Nebule INH Q4HR NEB Lasix (Furosemide) 20 Mg Tab 20 Mg PO BID [Lactulose Liq] 30 ML Syrp 30 Ml PO QID 30 Days Zofran (Ondansetron HCl) 4 Mg Tab 4 Mg PO Q8HR PRN Lactulose Liq (Lactulose) 10 Gm/15 Ml Soln 30 Ml PO Q6H PRN Zantac (Ranitidine HCl) 150 Mg Tab 150 Mg PO DAILY Spironolactone 50 Mg Tab 50 Mg PO BIDPC Lamotrigine 200 Mg Tab 200 Mg PO HS Vitamin D3 (Cholecalciferol) 50,000 Unit Cap 50,000 Units PO Q7D Nadolol 20 Mg Tab 20 Mg PO DAILY Folic Acid 0.4 Mg Tab 1,000 Mcg PO DAILY Allergies: Coded Allergies: No Known Allergies (Verified Allergy, Unknown, 07/05/17) Family History No reported family hx of bleeding disorders or liver failure. Social History Has not drank alcohol reportedly since 04/2017 but prior to that was quite a heavy drinker of vodka and various mixed drinks. Reports that he smoked for a short period but has not smoked in many years. and has been so for 1-1/2 years, this is his third marriage. 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 Cool and dry. HEENT: Atraumatic. Normocephalic. No temporal or scalp tenderness. No scleral icterus. Airway patent. NECK: Trachea midline, supple, nontender. CARDIO: Regular. RESP: CTA bilaterally. No wheezes, rales, or rhonchi. ABD: +BS, soft, non-tender, distended. EXT: Extremities without clubbing, cyanosis, or edema. NEURO: Awake and alert. Motor and sensory grossly within normal limits. Normal speech. Laboratory Laboratory Tests Test 08/19/17 13:00 08/19/17 13:37 08/19/17 15:32 White Blood Count 8.9 Red Blood Count 3.51 Hemoglobin 12.2 Hematocrit 34.8 Mean Corpuscular Volume 99.1 Mean Corpuscular Hemoglobin 34.7 Mean Corpuscular Hemoglobin Concent 35.0 Red Cell Distribution Width 18.3 Platelet Count 127 Mean Platelet Volume 6.4 Neutrophils (%) (Auto) 63.0 Lymphocytes (%) (Auto) 18.2 Monocytes (%) (Auto) 12.4 Eosinophils (%) (Auto) 5.8 Basophils (%) (Auto) 0.6 Neutrophils # (Auto) 5.6 Lymphocytes # (Auto) 1.6 Monocytes # (Auto) 1.1 Eosinophils # (Auto) 0.5 Basophils # (Auto) 0.1 CBC Comment DIFF FINAL Differential Comment Prothrombin Time 15.7 Prothromb Time International Ratio 1.6 Activated Partial Thromboplast Time 41.7 Urine Color YELLOW Urine Turbidity CLEAR Urine pH 7.5 Urine Specific Manley 1.010 Urine Protein NEG Urine Glucose (UA) NEG Urine Ketones NEG Urine Occult Blood NEG Urine Nitrite NEG Urine Bilirubin NEG Urine Urobilinogen 2.0 Urine Leukocyte Esterase NEG Urine RBC 1 Urine WBC 2 Urine Hyaline Casts 13 Urine Mucus FEW Microscopic Urinalysis Comment CATH-CULT NOT IND Blood Urea Nitrogen 10 Creatinine 1.04 Random Glucose 99 Total Protein 6.1 Albumin 2.6 Calcium Level 9.0 Alkaline Phosphatase 164 Aspartate Amino Transf (AST/SGOT) 44 Alanine Aminotransferase (ALT/SGPT) 29 Total Bilirubin 8.1 Sodium Level 134 Potassium Level 3.5 Chloride Level 95 Carbon Dioxide Level 29.1 Anion Gap 10 Estimat Glomerular Filtration Rate 74 Lactic Acid Level 2.4 1.9 Ammonia 28 Total Creatine Kinase 49 Date/Time Source Procedure Growth Status 08/19/17 13:30 Blood Peripheral Aerobic Blood Culture Pending Received 08/19/17 13:30 Blood Peripheral Anaerobic Blood Culture Pending Received Result Diagram: 08/19/17 1300 08/19/17 1300 Imaging Last Impressions Chest X-Ray 08/19/17 1311 Signed Impressions: Service Date/Time: Saturday, August 19, 2017 13:24 - CONCLUSION: 1. Right basilar airspace disease and small right effusion. Overall there is improvement compared with Sonia 31 comparison. Heart size normal. Left lung relatively clear. Sandeep Morgan MD Head CT 08/19/17 0000 Signed Impressions: Service Date/Time: Saturday, August 19, 2017 14:13 - CONCLUSION: 1. No acute intracranial abnormalities. No significant change from July 05. Sandeep Morgan MD Abdomen/Pelvis CT 08/19/17 0000 Signed Impressions: Service Date/Time: Saturday, August 19, 2017 15:39 - CONCLUSION: 1. Liver cirrhosis with severe varices. Trace free fluid. 2. Bowel containing ventral hernia without bowel obstruction. 3. Numerous gallstones. 4. Moderate right effusion with compressive atelectasis. 5. Gynecomastia. 6. Mild compression fracture through superior plate of T12 with mild retropulsion. Sandeep Morgan MD Caprini VTE Risk Assessment Caprini Risk Assessment Model Point Value = 1 Point Value = 2 Point Value = 3 Point Value = 5 Age 41-60 Minor surgery BMI > 25 kg/m2 Swollen legs Varicose veins or History of unexplained or recurrent spontaneous Oral contraceptives or hormone replacement Sepsis (< 1 month) Serious lung disease, including pneumonia (< 1 month) Abnormal pulmonary function Acute myocardial infarction Congestive heart failure (< 1 month) History of inflammatory bowel disease Medical patient at bed rest Age 61-74 Arthroscopic surgery Major open surgery (> 45 min) Laparoscopic surgery (> 45 min) Malignancy Confined to bed (> 72 hours) Immobilizing plaster cast Central venous access Age >= 75 History of VTE Family history of VTE Factor V Leiden Prothrombin [id number] Lupus anticoagulant Anticardiolipin antibodies Elevated serum homocysteine Heparin-induced thrombocytopenia Other congenital or acquired thrombophilia Stroke (< 1 month) Elective arthroplasty Hip, pelvis, or leg fracture Acute spinal cord injury (< 1 month) Prophylaxis Regimen Total Risk Factor Score Risk Level Prophylaxis Regimen 0-1 Low Early ambulation 2 Moderate Order ONE of the following: *Sequential Compression Device (SCD) *Heparin 5000 units SQ BID 3-4 Higher Order ONE of the following medications: *Heparin 5000 units SQ TID *Enoxaparin/Lovenox 40 mg SQ daily (WT < 150 kg, CrCl > 30 mL/min) *Enoxaparin/Lovenox 30 mg SQ daily (WT < 150 kg, CrCl > 10-29 mL/min) *Enoxaparin/Lovenox 30 mg SQ BID (WT < 150 kg, CrCl > 30 mL/min) AND/OR *Sequential Compression Device (SCD) 5 or more Highest Order ONE of the following medications: *Heparin 5000 units SQ TID (Preferred with Epidurals) *Enoxaparin/Lovenox 40 mg SQ daily (WT < 150 kg, CrCl > 30 mL/min) *Enoxaparin/Lovenox 30 mg SQ daily (WT < 150 kg, CrCl > 10-29 mL/min) *Enoxaparin/Lovenox 30 mg SQ BID (WT < 150 kg, CrCl > 30 mL/min) AND *Sequential Compression Device (SCD) Assessment and Plan Problem List: (1) Hepatic encephalopathy ICD Codes: K72.90 - Hepatic failure, unspecified without coma Status: Chronic Plan: AMS/Hepatic Encephalopathy Alcoholic cirrhosis of liver with ascites and pleural effusion - Pt is a 56 y/o WM with alcoholic ESLD, portal HTN, hepatic encephalopathy, recurrent ascites, recurrent pleural effusion, thrombocytopenia, and BRENT - Pt was sent over from a local rehab center for AMS which is a recurrent issue - Pt with significant anasarca/edema - He is on Aldactone 50mg po BID and Lasix 20mg po BID - Attempt to diurese and control portal hypertension as systemic blood pressure allows. - Pt is on Lactulose 30mL QID and this will be continued - His Ammonia level was 28 at admission - End-of-life issues were previously discussed with patient and his during last admission and pt was seen by Palliative Care Medicine. refused hospice at that time and she understands that we may not have much more medically to offer her . (2) Pleural effusion associated with hepatic disorder ICD Codes: K76.9 - Liver disease, unspecified; J91.8 - Pleural effusion in other conditions classified elsewhere Status: Chronic (3) Alcoholic cirrhosis of liver with ascites ICD Codes: K70.31 - Alcoholic cirrhosis of liver with ascites Status: Chronic (4) Portal hypertension ICD Codes: K76.6 - Portal hypertension (5) Seizure disorder ICD Codes: G40.909 - Epilepsy, unspecified, not intractable, without status epilepticus Status: Chronic Physician Certification Order for Inpatient Services The services are ordered in accordance with Medicare regulations or non- Medicare payer requirements, as applicable. In the case of services not specified as inpatient-only, they are appropriately provided as inpatient services in accordance with the 2-midnight benchmark. days is the estimated time the patient will need to remain in the hospital, assuming treatment plan goals are met and no additional complications. Simi Fonseca Aug 19, 2017 17:09
[2017-08-19] MEDS ORDERED: TERBUTALINE INJ 1 MG/ML AMP SQ PRN (17:15)
--- NOTE | 2017-08-19 17:40 | RADRPT ---
EXAM DATE/TIME: 08/19/2017 17:08 [facility] COMPARISON: CHEST SINGLE AP, August 19, 2017, 13:24. INDICATIONS : Confirm central line placement. Altered mental status- Possible overdose. MEDICAL HISTORY : Hiatal hernia. Renal failure, Portal hypertension, Cirrhosis, Esophageal varices. SURGICAL HISTORY : Hiatal hernia repair. ENCOUNTER: Initial ACUITY: 1 day PAIN SCORE: Non-responsive. LOCATION: Bilateral chest FINDINGS: There is persistent hazy opacity in the right lower lung with loss of delineation of the right hemidi aphragm. The size appears to have increased slightly when compared to prior earlier today. Left keith g remains clear. Interval placement of right central line with tip projected in the right atrium. N o evidence of pneumothorax on this portable supine view. CONCLUSION: 1. Right central line tip projects in the right atrium. No evidence pneumothorax. 2. Increasing right lower chest opacity characteristic of a combination of airspace disease and pleur al effusion. Daniel Sawyer MD on August 19, 2017 at 17:37 Board Certified Radiologist. This report was verified electronically.
[2017-08-19] MEDS: NOREPINEPHRINE-DEXTROSE DRIP 250 ML IV PRN (17:52)
[2017-08-19] MEDS ORDERED: SPIRONOLACTONE 50 MG TAB PO SCH (18:00)
[2017-08-19] MEDS ORDERED: LACTULOSE SYRUP 20 GM/30 ML CUP PO SCH (18:00)
[2017-08-19] MEDS ORDERED: MISCELLANEOUS NURSING INFORMATION XX SCH (19:15)
[2017-08-19] MEDS ORDERED: MAGNESIUM HYDROXIDE SUSP 30 ML CUP PO PRN (19:15)
[2017-08-19] MEDS ORDERED: SENNOSIDES 8.6 MG TAB PO PRN (19:15)
[2017-08-19] MEDS ORDERED: METOCLOPRAMIDE HCL 10 MG/2 ML VIAL IV PUSH PRN (19:15)
[2017-08-19] MEDS ORDERED: CHLORHEXIDINE GLUCONATE 2 % 1 PACK (2 CLOTHS) TOP PRN (19:15)
[2017-08-19] MEDS ORDERED: ONDANSETRON HCL 4 MG/2 ML VIAL IV PUSH PRN (19:15)
[2017-08-19] MEDS ORDERED: RESP: ALBUTEROL 2.5 MG/IPRATROPIUM 0.5 MG NEB (PRN) INH (19:15)
[2017-08-19] MEDS ORDERED: BISACODYL 10 MG SUPP RECTAL PRN (19:15)
--- NOTE | 2017-08-19 19:38 | HHI.HP ---
HPI Service Critical Care Medicine Primary Care Physician Unknown Admission Diagnosis AMS Diagnosis: (1) Hepatic encephalopathy (2) Pleural effusion associated with hepatic disorder (3) Alcoholic cirrhosis of liver with ascites (4) Portal hypertension (5) Seizure disorder Chief Complaint: altered mental status Travel History International Travel<30 Days: No Contact w/Intl Traveler <30 Da: No Traveled to Known Affected Are: No History of Present Illness HPI Patient is a 57-year-old male sent by [facility] for evaluation of altered mental status. Per EMS report patient has been more lethargic since yesterday. He is normally verbal, correction staff states that he has been lethargic and nonverbal since that time. Patient is not verbally responding, he is withdrawing from pain. He appears jaundiced however EVAC said that this is his baseline. Patient has medical history significant for end-stage renal disease, cirrhosis, hepatic encephalopathy, alcoholism, esophageal varices. History PFSH Past Medical History Cirrhosis: Yes Gastrointestinal Disorders: Yes (PORTAL HTN, CIRRHOSIS, HERNIA, ESOPHAGEAL VARICES) Hiatal Hernia: Yes (HERNIA REPAIR) Respiratory: Yes Renal Failure: Yes Sleep Apnea: Yes (CPAP AT HOME) Thyroid Disease: No Ulcer: No Past Surgical History Abdominal Surgery: Yes (HERNIA REPAIR) Cardiac Surgery: No Genitourinary Surgery: No Gynecologic Surgery: No Neurologic Surgery: No Thoracic Surgery: No Other Surgery: Yes Social History Alcohol Use: No (HX ALCOHOL ABUSE ) Tobacco Use: No (30 YEARS AGO) Substance Use: No Allergies-Medications Allergies-Medications (Allergen,Severity, Reaction): Coded Allergies: No Known Allergies (Verified Allergy, Unknown, 07/05/17) Reported Meds & Prescriptions Reported Meds & Active Scripts Active Duoneb (Ipratropium-Albuterol Neb) 0.5-2.5 Mg/3 Ml Neb 1 Nebule INH Q4HR NEB Lasix (Furosemide) 20 Mg Tab 20 Mg PO BID [Lactulose Liq] 30 ML Syrp 30 Ml PO QID 30 Days Reported Zofran (Ondansetron HCl) 4 Mg Tab 4 Mg PO Q8HR PRN Lactulose Liq (Lactulose) 10 Gm/15 Ml Soln 30 Ml PO Q6H PRN Zantac (Ranitidine HCl) 150 Mg Tab 150 Mg PO DAILY Spironolactone 50 Mg Tab 50 Mg PO BIDPC Lamotrigine 200 Mg Tab 200 Mg PO HS Vitamin D3 (Cholecalciferol) 50,000 Unit Cap 50,000 Units PO Q7D Nadolol 20 Mg Tab 20 Mg PO DAILY Folic Acid 0.4 Mg Tab 1,000 Mcg PO DAILY ROS Review of Systems ROS Limitations: Poor Historian Except as stated in HPI: all other systems reviewed are Neg Skin: Positive Change in Pigmentation Neurologic: Positive: Weakness, Change in Mentation Physical Exam Vital Signs Vital Signs Date Time Temp Pulse Resp B/P (MAP) Pulse Ox O2 Delivery O2 Flow Rate FiO2 08/19/17 18:49 08/19/17 18:23 76 18 101/59 (73) 97 Nasal Cannula 2.00 08/19/17 18:08 74 18 106/62 (77) 97 Nasal Cannula 2.00 08/19/17 18:06 72 18 89/62 (71) 98 Nasal Cannula 2.00 08/19/17 17:52 80 89/50 08/19/17 17:46 89 18 99/59 (72) 97 Nasal Cannula 2.00 08/19/17 17:10 79 18 89/57 (68) 97 Nasal Cannula 2.00 08/19/17 16:12 18 97 Nasal Cannula 2.00 08/19/17 15:01 82 18 98/66 (77) 97 Nasal Cannula 2.00 08/19/17 14:36 84 18 90/54 (66) 97 Nasal Cannula 2.00 08/19/17 13:24 97 Nasal Cannula 2.00 08/19/17 13:24 98.6 80 18 88/50 (63) Physical Exam Narrative GENERAL: Well-developed, well-nourished, lethargic male. SKIN: Warm and dry. Jaundice HEAD: Atraumatic. Normocephalic. EYES: Pupils equal and round. Positive scleral icterus. No injection or drainage. ENT: No nasal bleeding or discharge. Mucous membranes pink and moist. NECK: Trachea midline. No JVD. CARDIOVASCULAR: Regular rate and rhythm. RESPIRATORY: No accessory muscle use. Diminished in bases. No wheezing or crackles GASTROINTESTINAL: Abdomen soft, non-tender, nondistended. Hepatic and splenic margins not palpable. Positive bowel sounds, no rebound, no guarding MUSCULOSKELETAL: Extremities without clubbing, cyanosis, or edema. No obvious deformities. NEUROLOGICAL: Drowsy, arousable, on inquiry answers that he is at [facility] though speech is slurred. Pupils 3mm bilaterally, reactivwe to light. No obvious cranial nerve deficits. localizes to pain with all 4 extremities. Motor grossly within normal limits. Laboratory Laboratory Tests Test 08/19/17 13:00 08/19/17 13:37 08/19/17 15:32 White Blood Count 8.9 Red Blood Count 3.51 Hemoglobin 12.2 Hematocrit 34.8 Mean Corpuscular Volume 99.1 Mean Corpuscular Hemoglobin 34.7 Mean Corpuscular Hemoglobin Concent 35.0 Red Cell Distribution Width 18.3 Platelet Count 127 Mean Platelet Volume 6.4 Neutrophils (%) (Auto) 63.0 Lymphocytes (%) (Auto) 18.2 Monocytes (%) (Auto) 12.4 Eosinophils (%) (Auto) 5.8 Basophils (%) (Auto) 0.6 Neutrophils # (Auto) 5.6 Lymphocytes # (Auto) 1.6 Monocytes # (Auto) 1.1 Eosinophils # (Auto) 0.5 Basophils # (Auto) 0.1 CBC Comment DIFF FINAL Differential Comment Prothrombin Time 15.7 Prothromb Time International Ratio 1.6 Activated Partial Thromboplast Time 41.7 Urine Color YELLOW Urine Turbidity CLEAR Urine pH 7.5 Urine Specific [place] 1.010 Urine Protein NEG Urine Glucose (UA) NEG Urine Ketones NEG Urine Occult Blood NEG Urine Nitrite NEG Urine Bilirubin NEG Urine Urobilinogen 2.0 Urine Leukocyte Esterase NEG Urine RBC 1 Urine WBC 2 Urine Hyaline Casts 13 Urine Mucus FEW Microscopic Urinalysis Comment CATH-CULT NOT IND Blood Urea Nitrogen 10 Creatinine 1.04 Random Glucose 99 Total Protein 6.1 Albumin 2.6 Calcium Level 9.0 Alkaline Phosphatase 164 Aspartate Amino Transf (AST/SGOT) 44 Alanine Aminotransferase (ALT/SGPT) 29 Total Bilirubin 8.1 Sodium Level 134 Potassium Level 3.5 Chloride Level 95 Carbon Dioxide Level 29.1 Anion Gap 10 Estimat Glomerular Filtration Rate 74 Lactic Acid Level 2.4 1.9 Ammonia 28 Total Creatine Kinase 49 Date/Time Source Procedure Growth Status 08/19/17 13:30 Blood Peripheral Aerobic Blood Culture Pending Received 08/19/17 13:30 Blood Peripheral Anaerobic Blood Culture Pending Received Result Diagram: 08/19/17 1300 08/19/17 1300 Imaging Last Impressions Chest X-Ray 08/19/17 1704 Signed Impressions: Service Date/Time: Saturday, August 19, 2017 17:08 - CONCLUSION: 1. Right central line tip projects in the right atrium. No evidence pneumothorax. 2. Increasing right lower chest opacity characteristic of a combination of airspace disease and pleural effusion. Daniel Sawyer MD Head CT 08/19/17 0000 Signed Impressions: Service Date/Time: Saturday, August 19, 2017 14:13 - CONCLUSION: 1. No acute intracranial abnormalities. No significant change from July 05. Sandeep Morgan MD Abdomen/Pelvis CT 08/19/17 0000 Signed Impressions: Service Date/Time: Saturday, August 19, 2017 15:39 - CONCLUSION: 1. Liver cirrhosis with severe varices. Trace free fluid. 2. Bowel containing ventral hernia without bowel obstruction. 3. Numerous gallstones. 4. Moderate right effusion with compressive atelectasis. 5. Gynecomastia. 6. Mild compression fracture through superior plate of T12 with mild retropulsion. Sandeep Morgan MD Septic Shock Reassessment Septic shock perfusion: reassessment completed Caprini VTE Risk Assessment Caprini VTE Risk Assessment: Mod/High Risk (score >= 2) VTE Pharm Contraindication: End Stage Liver Disease Caprini Risk Assessment Model Point Value = 1 Point Value = 2 Point Value = 3 Point Value = 5 Age 41-60 Minor surgery BMI > 25 kg/m2 Swollen legs Varicose veins or History of unexplained or recurrent spontaneous Oral contraceptives or hormone replacement Sepsis (< 1 month) Serious lung disease, including pneumonia (< 1 month) Abnormal pulmonary function Acute myocardial infarction Congestive heart failure (< 1 month) History of inflammatory bowel disease Medical patient at bed rest Age 61-74 Arthroscopic surgery Major open surgery (> 45 min) Laparoscopic surgery (> 45 min) Malignancy Confined to bed (> 72 hours) Immobilizing plaster cast Central venous access Age >= 75 History of VTE Family history of VTE Factor V Leiden Prothrombin 34172A Lupus anticoagulant Anticardiolipin antibodies Elevated serum homocysteine Heparin-induced thrombocytopenia Other congenital or acquired thrombophilia Stroke (< 1 month) Elective arthroplasty Hip, pelvis, or leg fracture Acute spinal cord injury (< 1 month) Prophylaxis Regimen Total Risk Factor Score Risk Level Prophylaxis Regimen 0-1 Low Early ambulation 2 Moderate Order ONE of the following: *Sequential Compression Device (SCD) *Heparin 5000 units SQ BID 3-4 Higher Order ONE of the following medications: *Heparin 5000 units SQ TID *Enoxaparin/Lovenox 40 mg SQ daily (WT < 150 kg, CrCl > 30 mL/min) *Enoxaparin/Lovenox 30 mg SQ daily (WT < 150 kg, CrCl > 10-29 mL/min) *Enoxaparin/Lovenox 30 mg SQ BID (WT < 150 kg, CrCl > 30 mL/min) AND/OR *Sequential Compression Device (SCD) 5 or more Highest Order ONE of the following medications: *Heparin 5000 units SQ TID (Preferred with Epidurals) *Enoxaparin/Lovenox 40 mg SQ daily (WT < 150 kg, CrCl > 30 mL/min) *Enoxaparin/Lovenox 30 mg SQ daily (WT < 150 kg, CrCl > 10-29 mL/min) *Enoxaparin/Lovenox 30 mg SQ BID (WT < 150 kg, CrCl > 30 mL/min) AND *Sequential Compression Device (SCD) Assessment and Plan Assessment and Plan 57-year-old male with: Encephalopathy Hypotension Alcohol-induced liver cirrhosis Thrombocytopenia Coagulopathy Esophageal varices Right pleural effusion with underlying atelectasis versus pneumonia History of sleep apnea on home C Pap H/o seizures Plan: Neuro: Avoid sedatives and narcotics. Follow neuro status. Will Pl., Dobbhoff and initiate lactulose 30 mL twice a day. Ammonia level within normal limits currently. Head CT unremarkable. If no improvement in neurologic status by tomorrow we'll consider MRI brain. Continue lamotrigine. EEG in a.m for further evaluation. Suspect seizure vs hepatic encephalopathy with question of underlying infection. Cardiovascular: Status post 3 L normal saline bolus in the ER. Started on Levophed for pressor support. Check serial cardiac enzymes, BNP. 2-D echo ordered. Hold nadolol and spironolactone in view of hypotension Pulmonary: Continue supplemental O2 as needed. Currently protecting airway. If neurologic status worsens, may require endotracheal intubation for airway protection. GI/liver: Start tube feeds with Dobbhoff in a.m. Lactulose twice a day. Follow LFTs. Appears to have advanced liver cirrhosis. Renal/: IV hydration, strict intake output, monitor and replete electro lites , follow BUN/creatinine. Salomon catheterization. ID: Follow-up blood cultures. Empiric antibiotic coverage with IV Zosyn, vancomycin IV times single dose. Endocrine: Check TSH. Watch for hyperglycemia, SSI for glycemic control if needed. Heme: Follow CBC and coags. Will give vitamin K 10 mg IV now in view of elevated INR. Prophylaxis: PPI/SCDs. Hold subcutaneous heparin or Lovenox in view of concern for bleeding. Access: Right subclavian central line placed by ER physician on 08/19/17 Prognosis appears poor. Consulted palliative care service to assist with deciding goals of therapy. Condition critical Time spent on critical care excluding procedures 60 minutes Bill Echavarria MD Aug 19, 2017 19:38
[2017-08-19] MEDS ORDERED: VANCOMYCIN INJ 1,200 MG in SODIUM CHLOR 0.9% 250 ML INJ 250 ML IV ONE (20:00)
[2017-08-19] MEDS ORDERED: RESP: ALBUTEROL 2.5 MG/IPRATROPIUM 0.5 MG NEB (SCH) INH (20:00)
[2017-08-19] MEDS: PANTOPRAZOLE SODIUM 40 MG VIAL IV PUSH SCH (20:44)
[2017-08-19] MEDS: D5-NS + KCL 20 MEQ INJ 1,000 ML IV SCH (20:44)
[2017-08-19] MEDS: PIPERACIL-TAZO 4.5 GM PREMIX 100 ML IV SCH (20:44)
[2017-08-19] MEDS ORDERED: FUROSEMIDE 20 MG TAB PO SCH (21:00)
[2017-08-19] MEDS ORDERED: lamoTRIgine 100 MG TAB PO SCH (21:00)
[2017-08-19] MEDS: LACTULOSE SYRUP 20 GM/30 ML CUP DOBHOFF SCH (21:00)
[2017-08-19] MEDS: DOCUSATE SODIUM 50 MG/SENNA 8.6 MG TAB PO SCH (21:00)
[2017-08-19] MEDS: SODIUM CHLORIDE 0.9% FLUSH 10 ML FLUSH IV FLUSH SCH (21:00)
[2017-08-19 21:11] LABS: TROPONIN I LESS THAN 0.02 NG/ML (0.02-0.05)
--- NOTE | 2017-08-19 22:27 | RADRPT ---
EXAM DATE/TIME: 08/19/2017 21:58 [place] COMPARISON: No previous studies available for comparison. INDICATIONS : Dobhoff feeding tube placement. MEDICAL HISTORY : Hiatal hernia. Cirrhosis. Renal failure, chronic. Esophageal varices. SURGICAL HISTORY : Hernia repair. ENCOUNTER: Subsequent ACUITY: 1 day PAIN SCORE: Non-responsive. LOCATION: Bilateral chest FINDINGS: The metallic tip of the Dobbhoff catheter is at the level of the hemidiaphragm and does not appear to cross and through the lumen of the stomach. Visualized lower lungs are clear. Scattered small no phous calcifications are seen scattered throughout the abdomen. No dilated loops of small or large b owel. CONCLUSION: Dobbhoff catheter tip is at the GE junction. Daniel Sawyer MD on August 19, 2017 at 22:25 Board Certified Radiologist. This report was verified electronically.
[2017-08-19] MEDS: RESP: ALBUTEROL 2.5 MG/IPRATROPIUM 0.5 MG NEB (SCH) INH (22:43)
[2017-08-19] MEDS ORDERED: diphenhydrAMINE HCL 50 MG/ML VIAL IV ONE (23:30)
[2017-08-20] VITALS (13 sets, daily range): BP systolic 86–122; BP diastolic 52–86; PULSE 74–114; RESP 16–22; TEMP 98.1–98.8; O2SAT 98–100
[2017-08-20] MEDS: PIPERACIL-TAZO 4.5 GM PREMIX 100 ML IV SCH ×4 (02:19→21:24)
[2017-08-20 03:01] LABS: ALBUMIN 2.1 GM/DL (3.4-5.0); ALKALINE PHOSPHATASE 127 U/L (45-117); ALT (GPT) 23 U/L (12-78); AST (GOT) 35 U/L (15-37); BICARBONATE 27.4 MEQ/L (21.0-32.0); BLOOD UREA NITROGEN 9 MG/DL (7-18); CALCIUM 7.7 MG/DL (8.5-10.1); CHLORIDE 103 MEQ/L (98-107); GLOMERULAR FILTRATION RATE 100 ML/MIN (>89); GLUCOSE,RANDOM 125 MG/DL (74-106); MAGNESIUM 1.5 MG/DL (1.5-2.5); SODIUM (NA) 137 MEQ/L (136-145); TOTAL BILIRUBIN ADULT 7.1 MG/DL (0.2-1.0); TROPONIN I LESS THAN 0.02 NG/ML (0.02-0.05)
[2017-08-20] MEDS: RESP: ALBUTEROL 2.5 MG/IPRATROPIUM 0.5 MG NEB (SCH) INH ×4 (03:57→21:36)
[2017-08-20] MEDS ORDERED: HALOPERIDOL LACTATE 5 MG/ML AMP IV PUSH ONE (05:45)
[2017-08-20] MEDS: CHLORHEXIDINE GLUCONATE 2 % 1 PACK (2 CLOTHS) TOP SCH ×2 (05:52→19:50)
[2017-08-20] MEDS: D5-NS + KCL 20 MEQ INJ 1,000 ML IV SCH ×4 (05:58→23:59)
[2017-08-20 06:51] LABS: INTERNATIONAL NORMALIZED RATIO 1.7 RATIO; PROTHROMBIN TIME - PATIENT 17.1 SEC (9.8-11.6)
[2017-08-20 06:54] LABS: BASOPHIL # 0.1 TH/MM3 (0-0.2); BASOPHIL % 0.7 % (0.0-2.0); EOSINOPHIL # 0.6 TH/MM3 (0-0.4); EOSINOPHIL % 7.2 % (0.0-4.0); HEMATOCRIT 29.4 % (39.0-51.0); HEMOGLOBIN 10.2 GM/DL (13.0-17.0); LYMPH % 21.7 % (9.0-44.0); LYMPHOCYTE # 1.9 TH/MM3 (1.0-4.8); MEAN CELL VOLUME 100.9 FL (80.0-100.0); MEAN CORPUSCULAR HEMOGLOBIN 35.1 PG (27.0-34.0); MEAN CORPUSCULAR HGB CONC 34.8 % (32.0-36.0); MEAN PLATELET VOLUME 6.3 FL (7.0-11.0); MONO % 12.4 % (0.0-8.0); MONOCYTE # 1.1 TH/MM3 (0-0.9); PLATELET COUNT 117 TH/MM3 (150-450); RED BLOOD COUNT 2.92 MIL/MM3 (4.50-5.90); RED CELL DISTRIBUTION WIDTH 18.2 % (11.6-17.2); WHITE BLOOD COUNT 8.6 TH/MM3 (4.0-11.0)
[2017-08-20 06:55] LABS: ALBUMIN 2.1 GM/DL (3.4-5.0); AST (GOT) 37 U/L (15-37); BICARBONATE 24.1 MEQ/L (21.0-32.0); BLOOD UREA NITROGEN 10 MG/DL (7-18); CALCIUM 7.8 MG/DL (8.5-10.1); CHLORIDE 104 MEQ/L (98-107); CREATININE 0.83 MG/DL (0.60-1.30); GLOMERULAR FILTRATION RATE 96 ML/MIN (>89); GLUCOSE,RANDOM 121 MG/DL (74-106); MAGNESIUM 1.4 MG/DL (1.5-2.5); SODIUM (NA) 137 MEQ/L (136-145)
[2017-08-20 06:57] LABS: ALT (GPT) 22 U/L (12-78); PHOSPHORUS 2.2 MG/DL (2.5-4.9)
[2017-08-20 06:58] LABS: ALKALINE PHOSPHATASE 128 U/L (45-117); TOTAL BILIRUBIN ADULT 7.1 MG/DL (0.2-1.0); TOTAL PROTEIN 4.9 GM/DL (6.4-8.2)
[2017-08-20 07:54] LABS: ACANTHOCYTES 1+ (NORMAL); KERATOCYTES OCC (NORMAL); OVALOCYTES 1+ (NORMAL); SPHEROCYTES OCC (NORMAL)
[2017-08-20] MEDS ORDERED: FAMOTIDINE 20 MG TAB PO SCH (09:00)
[2017-08-20] MEDS: LACTULOSE SYRUP 20 GM/30 ML CUP DOBHOFF SCH ×2 (09:00→21:00)
[2017-08-20] MEDS: DOCUSATE SODIUM 50 MG/SENNA 8.6 MG TAB PO SCH ×2 (09:00→21:00)
[2017-08-20] MEDS ORDERED: FOLIC ACID 1 MG TAB PO SCH (09:00)
[2017-08-20] MEDS: SODIUM CHLORIDE 0.9% FLUSH 10 ML FLUSH IV FLUSH SCH ×2 (09:31→21:00)
[2017-08-20] MEDS: PANTOPRAZOLE SODIUM 40 MG VIAL IV PUSH SCH (09:31)
--- NOTE | 2017-08-20 09:55 | PD.CONS ---
Consult Service Palliative Care . Consult Requested By Dr. Caesar Echavarria . Primary Care Physician Unknown . Reason for Consultation a. To assist with evaluation and management of symptoms including: debility , encephalopathy b. To assist medical decision maker(s) with: better understanding of current medical conditions; weighing benefits/burdens of medical treatment options; making medical treatment decisions. . HPI History of Present Illness Mr. Mccormack is a 57 year old male who was transferred from [facility] to [facility] on 08/19/17 for evaluation of altered mental status. Patient has a known history of ES liver disease, cirrhosis, hepatic encephalopathy, EtOH abuse, and esophageal varices. Per EMS report the patient had become increasingly lethargic over 24 and nonverbal. On exam, the patient appeared jaundiced and was withdrawing to pain. Additional diagnostic data: * Vital signs: Pulse 80, respirations 18, BP 88/50, oxygen saturation 97% on 2 L via nasal cannula, oral temperature 98.6 * WBC: 8.9, hemoglobin 12.2, hematocrit 34.8, platelets 127, neutrophils 63.0% * Sodium: 134, potassium 3.5, chloride 95, carbon dioxide 29.1, glucose 99, calcium 9.0 * BUN: 10, creatinine 1.04, GFR 74 * Lactic acid: 2.4 * Total bilirubin: 8.1, AST 44, ALT 29 * Alkaline phosphatase: 164 * Ammonia: 28 * Total creatine kinase: 49 * Total protein: 6.1, albumin 2.6 * PT: 15.7, INR 1.6, APTT 41.7 * Urinalysis WNL * Blood cultures pending * CT head showed no acute intracranial abnormalities * CT abdomen/pelvis revealed liver cirrhosis with severe varices, trace free fluid. Bowel containing ventral hernia without bowel obstruction; numerous gallstones. Moderate right effusion with compressive atelectasis. * CXR with right basilar airspace disease and small right effusion. Patient was hypotensive on arrival with systolic pressures in the 80s on arrival. Sepsis work-up was initiated. Lactic acid was elevated at 2.4. Systolic pressure increased to 98 and repeat lactic acid was 1.9 status post receiving 3L IVF. Later, the patient's blood pressure again dropped into the 80s. A central line was placed and Levophed was initiated. The patient was admitted for further evaluation and medical management. EEG and 2D echocardiogram ordered for further evaluation. If there is no improvement in neurological status, will consider MRI brain. Monitoring blood work. Following cultures; patient started on empiric antibiotic coverage with Zosyn and Vancomycin. Palliative Care was consulted to assist with symptom management and to discuss with the family the benefits and burdens of his current illnesses and the options regarding future care. . Function/Cognitive Trajectory Patient was hospitalized at [facility] from 07/05/17 through 07/11/17 at which time he was discharged to [facility] for rehab. Patient's states the patient has been working with PT and has been trying to get stronger but also spent several weeks last month (06/2017) at [facility]. . Review of Systems ROS Limitations: Clinical Condition, Altered Mental Status, Poor Historian Constitutional: COMPLAINS OF: Weight loss (50+ pound weight loss reported since June,), Generalized weakness Integumentary: COMPLAINS OF: Abnormal pigmentation Psychiatric: COMPLAINS OF: Confusion Past Family Social History Coded Allergies: No Known Allergies (Verified Allergy, Unknown, 07/05/17) Past Medical History Alcoholism with alcoholic cirrhosis and encephalopathy End-stage liver disease Ascites Chronic edema Esophageal varices Hepatic failure induced neuropathy Sleep apnea Portal hypertension Hyperammonemia Thrombocytopenia Vitamin D deficiency Large umbilical hernia . Past Surgical History Ventral hernia repair EGD performed 2014 revealed grade 1 esophageal varices with no bleeding, diffuse gastritis . Reported Medications Zofran (Ondansetron HCl) 4 Mg Tab 4 Mg PO Q8HR PRN Lactulose Liq (Lactulose) 10 Gm/15 Ml Soln 30 Ml PO Q6H PRN Zantac (Ranitidine HCl) 150 Mg Tab 150 Mg PO DAILY Spironolactone 50 Mg Tab 50 Mg PO BIDPC Lamotrigine 200 Mg Tab 200 Mg PO HS Vitamin D3 (Cholecalciferol) 50,000 Unit Cap 50,000 Units PO Q7D Nadolol 20 Mg Tab 20 Mg PO DAILY Folic Acid 0.4 Mg Tab 1,000 Mcg PO DAILY . Current Medications Medications (Trade) Dose Ordered Sig/Caitlin Route Start Time Stop Time Status Last Admin (Tylenol) 650 mg Q4H PRN PO 08/19/17 17:00 Norepinephrine Bitartrate 250 ml @ 7.5 mls/hr TITRATE PRN IV 08/19/17 17:15 08/19/17 17:52 (Brethine Inj) 1 mg UNSCH PRN SQ 08/19/17 17:15 (NS Flush) 2 ml UNSCH PRN IV FLUSH 08/19/17 19:15 (NS Flush) 2 ml BID IV FLUSH 08/19/17 21:00 (Protonix Inj) 40 mg DAILY IV PUSH 08/19/17 19:15 08/19/17 20:44 (Zofran Inj) 4 mg Q6H PRN IV PUSH 08/19/17 19:15 (Reglan Inj) 10 mg Q6H PRN IV PUSH 08/19/17 19:15 (Duoneb Neb) 1 ampule Q6HR NEB INH 08/19/17 22:00 08/20/17 07:42 (Duoneb Neb) 1 ampule Q2HR NEB PRN INH 08/19/17 19:15 Miscellaneous Information 1 Q361D XX 08/19/17 19:15 (Chlorhexidine 2% Cloth) 3 pack Taper DAILY@04 TOP 08/20/17 04:00 08/16/18 03:59 08/20/17 05:52 (Chlorhexidine 2% Cloth) 3 pack UNSCH PRN TOP 08/19/17 19:15 (Socorro-Colace) 1 tab BID PO 08/19/17 21:00 (Milk Of Magnesia Liq) 30 ml Q12H PRN PO 08/19/17 19:15 (Senokot) 17.2 mg Q12H PRN PO 08/19/17 19:15 (Dulcolax Supp) 10 mg DAILY PRN RECTAL 08/19/17 19:15 (Lactulose Liq) 30 ml BID DOBHOFF 08/19/17 21:00 Piperacillin Sod/ Tazobactam Sod 100 ml @ 200 mls/hr Q6H IV 08/19/17 20:00 08/20/17 02:19 Potassium Chloride/Dextrose/ Sod Cl 1,000 ml @ 125 mls/hr Q8H IV 08/19/17 20:00 08/20/17 05:58 . Family History Patient's son has autism. . Substance Use Tobacco: Alcohol: Prescription med abuse: Illicits: Psychosocial History Patient was born and raised in [facility]. He lives with his , Natalie, in [place]. They have been approximately 2 years. 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 He has 3 adult children with his first . His oldest son is who is 27 has Asperger's. He also has a 20 year old and a 15 year old. The 15 year old lives in [place] with his mother. . Spiritual/Cultural Factors Oriental Orthodox eileen . Documented care wishes: reports that she is power of united states attorney and healthcare surrogate, but documentation has yet to be provided. . . Today's verbally stated goals: Patient remains quite lethargic and encephalopathic; unable to verbalize medical treatment goals at the time of exam. . Family/friends goals: Patient's verbalizes aggressive goals stating that the patient has been working hard to get stronger. . Ethical and Legal Issues Per [place] statutes, in the absence of written advanced directives healthcare proxy decision making falls to the patient's . . Physical Exam Vital Signs Date Time Temp Pulse Resp B/P (MAP) Pulse Ox O2 Delivery O2 Flow Rate FiO2 08/20/17 07:44 100 Nasal Cannula 2.00 08/20/17 04:00 98.5 18 99/61 (74) 100 08/20/17 00:00 98.1 114 22 122/86 (98) 98 08/20/17 00:00 102 08/19/17 22:45 99 Nasal Cannula 2.00 08/19/17 22:00 90 08/19/17 20:00 98.5 80 20 107/67 (80) 99 08/19/17 20:00 80 08/19/17 18:49 08/19/17 18:23 76 18 101/59 (73) 97 Nasal Cannula 2.00 08/19/17 18:08 74 18 106/62 (77) 97 Nasal Cannula 2.00 08/19/17 18:06 72 18 89/62 (71) 98 Nasal Cannula 2.00 08/19/17 17:52 80 89/50 08/19/17 17:46 89 18 99/59 (72) 97 Nasal Cannula 2.00 08/19/17 17:10 79 18 89/57 (68) 97 Nasal Cannula 2.00 08/19/17 16:12 18 97 Nasal Cannula 2.00 08/19/17 15:01 82 18 98/66 (77) 97 Nasal Cannula 2.00 08/19/17 14:36 84 18 90/54 (66) 97 Nasal Cannula 2.00 08/19/17 13:24 97 Nasal Cannula 2.00 08/19/17 13:24 98.6 80 18 88/50 (63) . Exam CONSTITUTIONAL/GENERAL: This is an adequately nourished patient, in no apparent distress. TUBES/LINES/DRAINS: PIV, Salomon catheter SKIN: Jaundice. Skin temperature appropriate. Not diaphoretic. HEAD: Atraumatic. Normocephalic. EYES: Pupils equal and round and reactive. Extraocular motions intact. + scleral icterus. No injection or drainage. Fundi not examined. ENT: Hearing grossly normal. Nose without bleeding or purulent drainage. NECK: Trachea midline. Supple, nontender. No palpable thyroid enlargement or nodularity. CARDIOVASCULAR: Regular rate and rhythm without murmurs, gallops, or rubs. No JVD. Peripheral pulses symmetric. RESPIRATORY/CHEST: Symmetric, unlabored respirations. Breath sounds diminished in bases bilaterally. No wheezes, rales, or rhonchi. GASTROINTESTINAL: Abdomen soft, non-tender, nondistended. No guarding. Bowel sounds present. GENITOURINARY: Without palpable bladder distension. Salomon catheter in place. MUSCULOSKELETAL: Extremities without clubbing, cyanosis, or edema. No joint tenderness or effusion noted. No calf tenderness. No mottling or clubbing. LYMPHATICS: No palpable cervical or supraclavicular adenopathy. NEUROLOGICAL: Lethargic. Opens eyes briefly to verbal stimuli. Follows some simple commands but not consistently. Does not respond verbally to questions. PSYCHIATRIC: No obvious anxiety/depression. No apparent hallucinations or other psychotic thought process. . Diagnostic Tests Laboratory Laboratory Tests Test 08/19/17 13:00 08/19/17 13:37 08/19/17 15:32 08/19/17 20:05 White Blood Count 8.9 TH/MM3 (4.0-11.0) Red Blood Count 3.51 MIL/MM3 (4.50-5.90) Hemoglobin 12.2 GM/DL (13.0-17.0) Hematocrit 34.8 % (39.0-51.0) Mean Corpuscular Volume 99.1 FL (80.0-100.0) Mean Corpuscular Hemoglobin 34.7 PG (27.0-34.0) Mean Corpuscular Hemoglobin Concent 35.0 % (32.0-36.0) Red Cell Distribution Width 18.3 % (11.6-17.2) Platelet Count 127 TH/MM3 (150-450) Mean Platelet Volume 6.4 FL (7.0-11.0) Neutrophils (%) (Auto) 63.0 % (16.0-70.0) Lymphocytes (%) (Auto) 18.2 % (9.0-44.0) Monocytes (%) (Auto) 12.4 % (0.0-8.0) Eosinophils (%) (Auto) 5.8 % (0.0-4.0) Basophils (%) (Auto) 0.6 % (0.0-2.0) Neutrophils # (Auto) 5.6 TH/MM3 (1.8-7.7) Lymphocytes # (Auto) 1.6 TH/MM3 (1.0-4.8) Monocytes # (Auto) 1.1 TH/MM3 (0-0.9) Eosinophils # (Auto) 0.5 TH/MM3 (0-0.4) Basophils # (Auto) 0.1 TH/MM3 (0-0.2) CBC Comment DIFF FINAL Differential Comment Prothrombin Time 15.7 SEC (9.8-11.6) Prothromb Time International Ratio 1.6 RATIO Activated Partial Thromboplast Time 41.7 SEC (24.3-30.1) Urine Color YELLOW (YELLW/STRAW) Urine Turbidity CLEAR (CLEAR) Urine pH 7.5 (5.0-8.5) Urine Specific [place] 1.010 (1.002-1.035) Urine Protein NEG mg/dL (NEG-TRACE) Urine Glucose (UA) NEG mg/dL (NEG) Urine Ketones NEG mg/dL (NEG) Urine Occult Blood NEG (NEG) Urine Nitrite NEG (NEG) Urine Bilirubin NEG (NEG) Urine Urobilinogen 2.0 MG/DL (LESS THAN Urine Leukocyte Esterase NEG (NEG) Urine RBC 1 /hpf (0-3) Urine WBC 2 /hpf (0-5) Urine Hyaline Casts 13 /lpf (RARE) Urine Mucus FEW /lpf (OCC) Microscopic Urinalysis Comment CATH-CULT NOT IND Blood Urea Nitrogen 10 MG/DL (7-18) Creatinine 1.04 MG/DL (0.60-1.30) Random Glucose 99 MG/DL (74-106) Total Protein 6.1 GM/DL (6.4-8.2) Albumin 2.6 GM/DL (3.4-5.0) Calcium Level 9.0 MG/DL (8.5-10.1) Alkaline Phosphatase 164 U/L (45-117) Aspartate Amino Transf (AST/SGOT) 44 U/L (15-37) Alanine Aminotransferase (ALT/SGPT) 29 U/L (12-78) Total Bilirubin 8.1 MG/DL (0.2-1.0) Sodium Level 134 MEQ/L (136-145) Potassium Level 3.5 MEQ/L (3.5-5.1) Chloride Level 95 MEQ/L (98-107) Carbon Dioxide Level 29.1 MEQ/L (21.0-32.0) Anion Gap 10 MEQ/L (5-15) Estimat Glomerular Filtration Rate 74 ML/MIN (>89) Lactic Acid Level 2.4 mmol/L (0.4-2.0) 1.9 mmol/L (0.4-2.0) 1.3 mmol/L (0.4-2.0) Ammonia 28 MCMOL/L (11-32) Total Creatine Kinase 49 U/L (39-308) 42 U/L (39-308) Troponin I LESS THAN 0.02 NG/ML B-Type Natriuretic Peptide 59 PG/ML (0-100) Test 08/20/17 02:15 08/20/17 06:10 Blood Urea Nitrogen 9 MG/DL (7-18) 10 MG/DL (7-18) Creatinine 0.80 MG/DL (0.60-1.30) 0.83 MG/DL (0.60-1.30) Random Glucose 125 MG/DL (74-106) 121 MG/DL (74-106) Total Protein 5.0 GM/DL (6.4-8.2) 4.9 GM/DL (6.4-8.2) Albumin 2.1 GM/DL (3.4-5.0) 2.1 GM/DL (3.4-5.0) Calcium Level 7.7 MG/DL (8.5-10.1) 7.8 MG/DL (8.5-10.1) Magnesium Level 1.5 MG/DL (1.5-2.5) 1.4 MG/DL (1.5-2.5) Alkaline Phosphatase 127 U/L (45-117) 128 U/L (45-117) Aspartate Amino Transf (AST/SGOT) 35 U/L (15-37) 37 U/L (15-37) Alanine Aminotransferase (ALT/SGPT) 23 U/L (12-78) 22 U/L (12-78) Total Bilirubin 7.1 MG/DL (0.2-1.0) 7.1 MG/DL (0.2-1.0) Sodium Level 137 MEQ/L (136-145) 137 MEQ/L (136-145) Potassium Level 3.8 MEQ/L (3.5-5.1) 3.9 MEQ/L (3.5-5.1) Chloride Level 103 MEQ/L (98-107) 104 MEQ/L (98-107) Carbon Dioxide Level 27.4 MEQ/L (21.0-32.0) 24.1 MEQ/L (21.0-32.0) Anion Gap 7 MEQ/L (5-15) 9 MEQ/L (5-15) Estimat Glomerular Filtration Rate 100 ML/MIN (>89) 96 ML/MIN (>89) Total Creatine Kinase 59 U/L (39-308) Troponin I LESS THAN 0.02 NG/ML White Blood Count 8.6 TH/MM3 (4.0-11.0) Red Blood Count 2.92 MIL/MM3 (4.50-5.90) Hemoglobin 10.2 GM/DL (13.0-17.0) Hematocrit 29.4 % (39.0-51.0) Mean Corpuscular Volume 100.9 FL (80.0-100.0) Mean Corpuscular Hemoglobin 35.1 PG (27.0-34.0) Mean Corpuscular Hemoglobin Concent 34.8 % (32.0-36.0) Red Cell Distribution Width 18.2 % (11.6-17.2) Platelet Count 117 TH/MM3 (150-450) Mean Platelet Volume 6.3 FL (7.0-11.0) Neutrophils (%) (Auto) 58.0 % (16.0-70.0) Lymphocytes (%) (Auto) 21.7 % (9.0-44.0) Monocytes (%) (Auto) 12.4 % (0.0-8.0) Eosinophils (%) (Auto) 7.2 % (0.0-4.0) Basophils (%) (Auto) 0.7 % (0.0-2.0) Neutrophils # (Auto) 5.0 TH/MM3 (1.8-7.7) Lymphocytes # (Auto) 1.9 TH/MM3 (1.0-4.8) Monocytes # (Auto) 1.1 TH/MM3 (0-0.9) Eosinophils # (Auto) 0.6 TH/MM3 (0-0.4) Basophils # (Auto) 0.1 TH/MM3 (0-0.2) CBC Comment AUTO DIFF Differential Comment AUTO DIFF CONFIRMED Spherocytes OCC (NORMAL) Ovalocytes 1+ (NORMAL) Acanthocytes 1+ (NORMAL) Keratocytes OCC (NORMAL) Prothrombin Time 17.1 SEC (9.8-11.6) Prothromb Time International Ratio 1.7 RATIO Activated Partial Thromboplast Time 46.3 SEC (24.3-30.1) Phosphorus Level 2.2 MG/DL (2.5-4.9) Lactic Acid Level 2.1 mmol/L (0.4-2.0) . Result Diagram: 08/20/17 0610 08/20/17 0610 Microbiology Microbiology Date/Time Source Procedure Growth Status 08/19/17 13:30 Blood Peripheral Aerobic Blood Culture Pending Received 08/19/17 13:30 Blood Peripheral Anaerobic Blood Culture Pending Received 08/19/17 13:00 Blood Peripheral Aerobic Blood Culture Pending Received 08/19/17 13:00 Blood Peripheral Anaerobic Blood Culture Pending Received . Imaging Last 72 hours Impressions Chest X-Ray 08/19/17 1704 Signed Impressions: Service Date/Time: Saturday, August 19, 2017 17:08 - CONCLUSION: 1. Right central line tip projects in the right atrium. No evidence pneumothorax. 2. Increasing right lower chest opacity characteristic of a combination of airspace disease and pleural effusion. Daniel Sawyer MD Chest X-Ray 08/19/17 1311 Signed Impressions: Service Date/Time: Saturday, August 19, 2017 13:24 - CONCLUSION: 1. Right basilar airspace disease and small right effusion. Overall there is improvement compared with Sonia 31 comparison. Heart size normal. Left lung relatively clear. Sandeep Morgan MD Head CT 08/19/17 0000 Signed Impressions: Service Date/Time: Saturday, August 19, 2017 14:13 - CONCLUSION: 1. No acute intracranial abnormalities. No significant change from July 05. Sandeep Morgan MD Abdomen/Pelvis CT 08/19/17 0000 Signed Impressions: Service Date/Time: Saturday, August 19, 2017 15:39 - CONCLUSION: 1. Liver cirrhosis with severe varices. Trace free fluid. 2. Bowel containing ventral hernia without bowel obstruction. 3. Numerous gallstones. 4. Moderate right effusion with compressive atelectasis. 5. Gynecomastia. 6. Mild compression fracture through superior plate of T12 with mild retropulsion. Sandeep Morgan MD Abdomen X-Ray 08/19/17 0000 Signed Impressions: Service Date/Time: Saturday, August 19, 2017 21:58 - CONCLUSION: Dobbhoff catheter tip is at the GE junction. Daniel Sawyer MD . Procedures 08/19/2017: Central venous line placement Patient/Family Conference Present at Family Conference: Spoke to patient's at bedside. . Family Conference Location: Bedside Issues Discussed: * Palliative care role, purpose, approach * Additional medical, psychosocial, and spiritual history * Patients general health, functional status, and cognitive changes in the months leading up to the current hospitalization * Patient/family understanding of the current medical problems * Patient/family understanding of prognosis * Patients goals of care as best understood from advance directives and/or conversations and/or values * Current medical treatment options and benefits/burdens of those options * Likely scenarios comparing ongoing aggressive care with a transition to comfort measures only * Questions answered to the best of my ability * Palliative care contact information provided . Assessment and Plan Disease Oriented Problem List: (1) Hypotension (2) Hepatic encephalopathy (3) Liver cirrhosis, alcoholic (4) Thrombocytopenia (5) Coagulopathy (6) Esophageal varices (7) Pleural effusion on right (8) Sleep apnea (9) Seizure disorder Symptom Scale: (1) Encephalopathy (2) Debility Pertinent Non-Medical Issues Psychosocial: Patient was born and raised in [facility]. He lives with his , Natalie, in [place]. They have been approximately 2 years. 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 He has 3 adult children with his first . His oldest son is who is 27 has Asperger's. He also has a 20 year old and a 15 year old. The 15 year old lives in [place] with his mother. Spiritual: Oriental Orthodox eileen Legal: Per [place] statutes, in the absence of written advanced directive HCP decision-making falls to the patient's . Ethical issues impacting care: No known ethical issues impacting care at this time. . Important Contacts Natalie Robert, : [phone] . Prognosis Patient with ES Liver Disease. MELD 22 upon admission. Overall prognosis is poor. Palliative care is following to assist with symptom management and clarification of medical treatment goals. . . Code Status: Full Code Plan * FULL CODE * Decision-making: Patient does not have insight or judgement related to his medical conditions. Per [place] Statutes, health care proxy decision making falls to the patient's . * Patient's verbalizes aggressive goals stating that the patient has been working hard to get stronger. She has spoke with someone from hospice in the past, but she does not feel they are at that point yet. She states her has been working with physical therapy and "he's improved a little." They plan to continue rehabilitation as soon as they can get him back to [facility]. * Discussed with bedside nurse. * Palliative care contact information was provided to the patient's . * Symptom management: = Debility: Patient has been residing at [facility] for rehabilitation. DME includes, walker, BSC, nebulizer and CPAP. [facility] will accept the patient back upon discharge. = Encephalopathy: CT head unremarkable. Ammonia level normal at 28. Avoiding sedatives and narcotics. If no improvement in neurologic status by tomorrow - consider MRI brain. Continue Lamotrigine. Suspect seizure vs hepatic encephalopathy with question of underlying infection. * Palliative care will continue to follow this patient throughout his hospitalization to establish trust, assist with symptom management and clarification of medical treatment goals. . Thank you for the opportunity to participate in the care of Mr. Reaves. . Attestation To help prompt me to consider important information that might be impacting today's encounter and assessment, information from prior notes written by myself or my colleagues may have been "brought forward" into today's note. My signature on this note, however, is an attestation that I personally performed the exam, history, and/or decision-making noted today, and, unless otherwise indicated, the interactions with patient, family, and staff as well as the review of records all occurred today. I also attest that the listed assessment and stated plan reflect my best clinical judgment today based on the combination of historical information, prior notes, and today's exam/ interactions. When time spent is documented, it refers only to time spent today by the signer, or if indicated, combined time spent today by collaborating physician/nurse practitioner. . Sandy Coronado Aug 20, 2017 09:55
[2017-08-20] MEDS: NOREPINEPHRINE-DEXTROSE DRIP 250 ML IV PRN ×2 (10:30→22:25)
--- NOTE | 2017-08-20 10:41 | HHI.CCPN ---
Subjective Remarks/Hospital Course 08/19: Patient is a 57-year-old male sent by [facility] for evaluation of altered mental status. Per EMS report patient has been more lethargic since yesterday. He is normally verbal, residential staff states that he has been lethargic and nonverbal since that time. Patient is not verbally responding, he is withdrawing from pain. He appears jaundiced however EVAC said that this is his baseline. Patient has medical history significant for end-stage renal disease, cirrhosis, hepatic encephalopathy, alcoholism, esophageal varices. 08/20: Resting in bed comfortably not in any acute distress. Blood pressure borderline. Was off Levophed earlier however now being restarted for hypotension. Objective Vital Signs Date Time Temp Pulse Resp B/P (MAP) Pulse Ox O2 Delivery O2 Flow Rate FiO2 08/20/17 07:44 100 Nasal Cannula 2.00 08/20/17 04:00 98.5 18 99/61 (74) 08/20/17 00:00 114 Intake and Output 08/20/17 08/20/17 08/21/17 08:00 16:00 00:00 Intake Total 462 ml Output Total 800 ml Balance -338 ml Result Diagram: 08/20/17 0610 08/20/17 0610 Imaging Last Impressions Chest X-Ray 08/19/17 1704 Signed Impressions: Service Date/Time: Saturday, August 19, 2017 17:08 - CONCLUSION: 1. Right central line tip projects in the right atrium. No evidence pneumothorax. 2. Increasing right lower chest opacity characteristic of a combination of airspace disease and pleural effusion. Daniel Sawyer MD Head CT 08/19/17 0000 Signed Impressions: Service Date/Time: Saturday, August 19, 2017 14:13 - CONCLUSION: 1. No acute intracranial abnormalities. No significant change from July 05. Sandeep Morgan MD Abdomen/Pelvis CT 08/19/17 0000 Signed Impressions: Service Date/Time: Saturday, August 19, 2017 15:39 - CONCLUSION: 1. Liver cirrhosis with severe varices. Trace free fluid. 2. Bowel containing ventral hernia without bowel obstruction. 3. Numerous gallstones. 4. Moderate right effusion with compressive atelectasis. 5. Gynecomastia. 6. Mild compression fracture through superior plate of T12 with mild retropulsion. Sandeep Morgan MD Objective Remarks Narrative GENERAL: Well-developed, well-nourished, lethargic male. SKIN: Warm and dry. Jaundice HEAD: Atraumatic. Normocephalic. EYES: Pupils equal and round. Positive scleral icterus. No injection or drainage. ENT: No nasal bleeding or discharge. Mucous membranes pink and moist. NECK: Trachea midline. No JVD. CARDIOVASCULAR: Regular rate and rhythm. RESPIRATORY: No accessory muscle use. Diminished in bases. No wheezing or crackles GASTROINTESTINAL: Abdomen soft, non-tender, nondistended. Hepatic and splenic margins not palpable. Positive bowel sounds, no rebound, no guarding MUSCULOSKELETAL: Extremities without clubbing, cyanosis, or edema. No obvious deformities. NEUROLOGICAL: Drowsy, arousable, on inquiry answers that he is at [facility] though speech is slurred. Pupils 3mm bilaterally, reactivwe to light. No obvious cranial nerve deficits. localizes to pain with all 4 extremities. Motor grossly within normal limits. A/P Assessment and Plan 57-year-old male with: Encephalopathy Hypotension Possible sepsis Alcohol-induced liver cirrhosis Thrombocytopenia Coagulopathy Esophageal varices Right pleural effusion with underlying atelectasis versus pneumonia History of sleep apnea on home C Pap H/o seizures Plan: Neuro: Avoid sedatives and narcotics. Follow neuro status. Attempted Dobbhoff at night however could not pass beyond GE junction. Initiate lactulose 30 mL twice a day. Ammonia level within normal limits currently. Head CT unremarkable. If no improvement in neurologic status by tomorrow we'll consider MRI brain. Continue lamotrigine. EEG in a.m for further evaluation. Suspect seizure vs hepatic encephalopathy with question of underlying infection. Cardiovascular: Status post 3 L normal saline bolus in the ER. Started on Levophed for pressor support. Check serial cardiac enzymes, BNP. 2-D echo ordered. Hold nadolol and spironolactone in view of hypotension Pulmonary: Continue supplemental O2 as needed. Currently protecting airway. If neurologic status worsens, may require endotracheal intubation for airway protection. Patient's tells me that he has had a Pleurx catheter however has pulled out twice before for recurrent right pleural effusion. We will schedule for US guided right thoracentesis with IR GI/liver: Start tube feeds if able to pass Dobbhoff. Lactulose twice a day. Follow LFTs. Appears to have advanced liver cirrhosis. GI consult requested for further evaluation. Renal/: IV hydration, strict intake output, monitor and replete electro lites , follow BUN/creatinine. Salomon catheterization. ID: Follow-up blood cultures. Empiric antibiotic coverage with IV Zosyn, vancomycin IV single dose. Endocrine: Check TSH. Watch for hyperglycemia, SSI for glycemic control if needed. Heme: Follow CBC and coags. Will give vitamin K 10 mg IV now in view of elevated INR. Prophylaxis: PPI/SCDs. Hold subcutaneous heparin or Lovenox in view of concern for bleeding. Access: Right subclavian central line placed by ER physician on 08/19/17 Prognosis appears poor. Consulted palliative care service to assist with deciding goals of therapy. Condition critical Time spent on critical care excluding procedures 35 minutes Bill Echavarria MD Aug 20, 2017 10:41
[2017-08-20] MEDS ORDERED: LIDOCAINE HCL 1% 20 ML VIAL ONE (13:12)
--- NOTE | 2017-08-20 13:15 | RADRPT ---
EXAM DATE/TIME: 08/20/2017 12:54 [facility] COMPARISON: CHEST SINGLE AP, August 19, 2017, 17:08. ABDOMEN KUB ONLY, August 19, 2017, 21:58. INDICATIONS : Post thoracentesis right side MEDICAL HISTORY : Hiatal hernia. Cirrhosis. esophageal varices, portal hypertension SURGICAL HISTORY : hiatal hernia repair ENCOUNTER: Initial ACUITY: 1 day PAIN SCORE: Non-responsive. LOCATION: Bilateral chest FINDINGS: The heart is normal in size. There is a right subclavian line in good position. There is minimal effu mike on the right. There is a small right sided pneumothorax. Followup chest x-ray in 2 hours to asse ss for stability would be warranted. The left lung is clear The osseous structures are intact. CONCLUSION: 1. Interval removal of the right-sided pleural effusion. 2. Small right-sided pneumothorax. This measures approximately 1 cm the lung apex. Followup examinati on in 2 hours to assess for stability is warranted. Bahman Alegre MD on August 20, 2017 at 13:12 Board Certified Radiologist. This report was verified electronically.
[2017-08-20 13:51] LABS: TOTAL PROTEIN,PLEURAL FLUID 2.2 GM/DL
[2017-08-20 14:02] LABS: PLEURAL FLUID RBC 12976 /MM3 (0-0); PLEURAL FLUID WBC 1126 /MM3 (0-10)
[2017-08-20 14:09] LABS: PLEURAL FLUID BASO 1 %; PLEURAL FLUID LYMPHS 7 %; PLEURAL FLUID POLYS (SEGS) 4 %
[2017-08-20 14:10] LABS: PLEURAL FLUID EOS 85 %; PLEURAL FLUID HISTIOCYTES 3 %
[2017-08-20] MEDS: ALBUMIN 5% INJ 500 ML IV SCH ×3 (14:13→23:59)
--- NOTE | 2017-08-20 14:37 | PD.CONS ---
HPI History of Present Illness This is a 57 year old male with cirrhosis, ESRD, hx heavy drinking who [facility] and lethargy. CT showed liver cirrhosis, severe varices, ventral hernia with bowel, gallstones. Limited hx obtained from EMR and pts daughter, pt is nonverbal and did not rouse to exam. He was a heavy drinker and quit last May. (Doretha Brito) PFSH Past Medical History Alcoholism with alcoholic cirrhosis and encephalopathy End-stage liver disease Ascites Chronic edema Esophageal varices Hepatic failure induced neuropathy Sleep apnea Portal hypertension Hyperammonemia Thrombocytopenia Vitamin D deficiency Large umbilical hernia . Past Surgical History Ventral hernia repair EGD performed 2014 revealed grade 1 esophageal varices with no bleeding, diffuse gastritis . (Doretha Brito) Coded Allergies: No Known Allergies (Verified Allergy, Unknown, 07/05/17) Family History Patient's son has autism. . Social History former heavy drinker, quit may (Doretha Brito) Review of Systems noncontributory (Doretha Brito) GI Exam Vitals I&O Vital Signs Date Time Temp Pulse Resp B/P (MAP) Pulse Ox O2 Delivery O2 Flow Rate FiO2 08/20/17 10:47 72 80/51 08/20/17 10:30 74 82/50 08/20/17 07:44 100 Nasal Cannula 2.00 08/20/17 07:00 100 Nasal Cannula 2.00 08/20/17 04:00 98.5 18 99/61 (74) 100 08/20/17 00:00 98.1 114 22 122/86 (98) 98 08/20/17 00:00 102 08/19/17 22:45 99 Nasal Cannula 2.00 08/19/17 22:00 90 08/19/17 20:00 98.5 80 20 107/67 (80) 99 08/19/17 20:00 80 08/19/17 18:49 08/19/17 18:23 76 18 101/59 (73) 97 Nasal Cannula 2.00 08/19/17 18:08 74 18 106/62 (77) 97 Nasal Cannula 2.00 08/19/17 18:06 72 18 89/62 (71) 98 Nasal Cannula 2.00 08/19/17 17:52 80 89/50 08/19/17 17:46 89 18 99/59 (72) 97 Nasal Cannula 2.00 08/19/17 17:10 79 18 89/57 (68) 97 Nasal Cannula 2.00 08/19/17 16:12 18 97 Nasal Cannula 2.00 08/19/17 15:01 82 18 98/66 (77) 97 Nasal Cannula 2.00 08/19/17 14:36 84 18 90/54 (66) 97 Nasal Cannula 2.00 I/O 08/19/17 08/19/17 08/19/17 08/20/17 08/20/17 08/20/17 07:00 15:00 23:00 07:00 15:00 23:00 Intake Total 462 ml Output Total 800 ml Balance -338 ml Intake IV Total 462 ml Output Urine Total 800 ml Imaging Last Impressions Chest X-Ray 08/20/17 0000 Signed Impressions: Service Date/Time: Sunday, August 20, 2017 12:54 - CONCLUSION: 1. Interval removal of the right-sided pleural effusion. 2. Small right-sided pneumothorax. This measures approximately 1 cm the lung apex. Followup examination in 2 hours to assess for stability is warranted. Bahman Alegre MD Head CT 08/19/17 0000 Signed Impressions: Service Date/Time: Saturday, August 19, 2017 14:13 - CONCLUSION: 1. No acute intracranial abnormalities. No significant change from July 05. Sandeep Morgan MD Abdomen/Pelvis CT 08/19/17 0000 Signed Impressions: Service Date/Time: Saturday, August 19, 2017 15:39 - CONCLUSION: 1. Liver cirrhosis with severe varices. Trace free fluid. 2. Bowel containing ventral hernia without bowel obstruction. 3. Numerous gallstones. 4. Moderate right effusion with compressive atelectasis. 5. Gynecomastia. 6. Mild compression fracture through superior plate of T12 with mild retropulsion. Sandeep Morgan MD Abdomen X-Ray 08/19/17 0000 Signed Impressions: Service Date/Time: Saturday, August 19, 2017 21:58 - CONCLUSION: Dobbhoff catheter tip is at the GE junction. Daniel Sawyer MD Laboratory Test 08/19/17 15:32 08/19/17 20:05 08/20/17 02:15 08/20/17 06:10 Lactic Acid Level 1.9 mmol/L 1.3 mmol/L 2.1 mmol/L Total Creatine Kinase 42 U/L 59 U/L Troponin I LESS THAN 0.02 NG/ML LESS THAN 0.02 NG/ML B-Type Natriuretic Peptide 59 PG/ML Blood Urea Nitrogen 9 MG/DL 10 MG/DL Creatinine 0.80 MG/DL 0.83 MG/DL Random Glucose 125 MG/DL 121 MG/DL Total Protein 5.0 GM/DL 4.9 GM/DL Albumin 2.1 GM/DL 2.1 GM/DL Calcium Level 7.7 MG/DL 7.8 MG/DL Magnesium Level 1.5 MG/DL 1.4 MG/DL Alkaline Phosphatase 127 U/L 128 U/L Aspartate Amino Transf (AST/SGOT) 35 U/L 37 U/L Alanine Aminotransferase (ALT/SGPT) 23 U/L 22 U/L Total Bilirubin 7.1 MG/DL 7.1 MG/DL Sodium Level 137 MEQ/L 137 MEQ/L Potassium Level 3.8 MEQ/L 3.9 MEQ/L Chloride Level 103 MEQ/L 104 MEQ/L Carbon Dioxide Level 27.4 MEQ/L 24.1 MEQ/L Anion Gap 7 MEQ/L 9 MEQ/L Estimat Glomerular Filtration Rate 100 ML/MIN 96 ML/MIN White Blood Count 8.6 TH/MM3 Red Blood Count 2.92 MIL/MM3 Hemoglobin 10.2 GM/DL Hematocrit 29.4 % Mean Corpuscular Volume 100.9 FL Mean Corpuscular Hemoglobin 35.1 PG Mean Corpuscular Hemoglobin Concent 34.8 % Red Cell Distribution Width 18.2 % Platelet Count 117 TH/MM3 Mean Platelet Volume 6.3 FL Neutrophils (%) (Auto) 58.0 % Lymphocytes (%) (Auto) 21.7 % Monocytes (%) (Auto) 12.4 % Eosinophils (%) (Auto) 7.2 % Basophils (%) (Auto) 0.7 % Neutrophils # (Auto) 5.0 TH/MM3 Lymphocytes # (Auto) 1.9 TH/MM3 Monocytes # (Auto) 1.1 TH/MM3 Eosinophils # (Auto) 0.6 TH/MM3 Basophils # (Auto) 0.1 TH/MM3 CBC Comment AUTO DIFF Differential Comment AUTO DIFF CONFIRMED Spherocytes OCC Ovalocytes 1+ Acanthocytes 1+ Keratocytes OCC Prothrombin Time 17.1 SEC Prothromb Time International Ratio 1.7 RATIO Activated Partial Thromboplast Time 46.3 SEC Phosphorus Level 2.2 MG/DL Test 08/20/17 12:45 Pleural Fluid pH 8.5 Pleural Fluid WBC 1126 /MM3 Pleural Fluid RBC 37427 /MM3 Pleural Fluid Neutrophils 4 % Pleural Fluid Lymphocytes 7 % Pleural Fluid Eosinophils 85 % Pleural Fluid Basophils 1 % Pleural Fluid Histiocytes 3 % Pleural Fluid Total Protein 2.2 GM/DL Pleural Fluid LDH 321 U/L Pleural Fluid Glucose 115 MG/DL Date/Time Source Procedure Growth Status 08/19/17 13:30 Blood Peripheral Aerobic Blood Culture - Preliminary NO GROWTH IN 1 DAY Resulted 08/19/17 13:30 Blood Peripheral Anaerobic Blood Culture - Preliminary NO GROWTH IN 1 DAY Resulted 08/20/17 12:45 Fluid Pleural Fluid Gram Stain Pending Received 08/20/17 12:45 Fluid Pleural Fluid Body Fluid Culture Pending Received Physical Examination HEENT: Pupils round and reactive to light; normocephalic; atraumatic; no jaundice. Throat is clear. NECK: Neck is supple, no JVD, no lymphadenopathy. CHEST: Chest is clear to auscultation and percussion. CARDIAC: Regular rate and rhythm with no murmur gallop or rubs. ABDOMEN: Soft, nondistended, nontender; no hepatosplenomegaly; bowel sounds are present in all four quadrants. EXTREMITIES: No clubbing, cyanosis, or edema. SKIN: Normal; no rash; no jaundice. TELEVISION NEWS REPORTER: No focal deficits; alert and oriented times three. (Doretha Brito) Assessment and Plan Plan ASSESSMENT - cirrhosis, jaundice - likely 2/2 etoh. labs at [facility] unremarkable AFP. quit drinking 05/2018 palliative care is following and goals are aggressive. MELD 20. DF 31. He would not be eligible for liver transplant at this time d/t etoh as recently as Dec prior admission at [facility] his indirect bili > direct - AMS - unk etiology NH 28. pt nonverbal, relatively unresponsive. palliative care following - anemia - had EGD 07/23/17 at [facility] with Dr Yao and finding esophageal varices grade 1, no active bleeding portal gatropathy HH stable compared to values from [facility] < 1 week ago PLAN - continue BID lactulose - monitor labs - fractionated bili - continue lactulose - supportive care pt seen by myself and Dr Ambrose and this note is on his behalf (Doretha Brito) Physician Comments Agree with above assessment and plan. \Will follow up with you. Thank you for the consult. (Cassy Ambrose MD) Doretha Brito Aug 20, 2017 14:37 Cassy Ambrose MD Aug 20, 2017 15:02
--- NOTE | 2017-08-20 15:44 | RADRPT ---
EXAM DATE/TIME: 08/20/2017 11:38 [facility] COMPARISON: No previous studies available for comparison. INDICATIONS : Right pleural effusion. MEDICAL HISTORY : Hernia, hiatal. Renal failure, acute. Hypertension.Cirrhosis.Esophogeal varices. SURGICAL HISTORY : Bilateral knee surgery. Bilateral shoulder surgery. ENCOUNTER: Initial ACUITY: 1 day PAIN SCORE: Non-responsive LOCATION: Right chest FLUID: Total volume of 200 cc of clear, lenka fluid was removed. Fluid was sent to lab for ordered studies. TECHNIQUE: 1. Ultrasound guidance for thoracentesis. 2. Thoracentesis. The risks, benefits, and alternatives to ultrasound guided thoracentesis were explained to the patien t in lay simple terms, including the risk of bleeding and infection. Written and verbal informed con sent was obtained. Appropriate area for thoracentesis was marked under ultrasound guidance with the patient in the uprig ht position. Overlying skin was prepped and draped in the usual sterile fashion and with local anest hetic, a dermatotomy was made with an 11 blade scalpel. A 6 [place] thoracentesis catheter was placed in the pleural space and fluid was removed. Catheter was then removed and a sterile dressing applie d. There were no immediate complications. The patient tolerated the procedure well and the left the ultrasound suite in stable condition. Chest radiograph is to be obtained. CONCLUSION: Uncomplicated ultrasound guided thoracentesis. Usman Umana MD on August 20, 2017 at 15:42 Board Certified Radiologist. This report was verified electronically.
--- NOTE | 2017-08-20 17:45 | ECHRPT ---
Indication: ASSESS LV/RV FUNCTION CONCLUSIONS Normal left ventricular size. Mild concentric left ventricular hypertrophy. The left atrial size is mildly dilated. [id number] mitral valve regurgitation. There is trace tricuspid valve regurgitation. The estimated pulmonary arterial pressure is 30 mmHg. BP: 122 / 86 HR: 102 Rhythm: Sinus MEASUREMENTS (Male / Female) Normal Values Technical Quality:Fair 2D ECHO LV Diastolic Diameter PLAX 5.0 cm 4.2 - 5.9 / 3.9 - 5.3 cm LV Systolic Diameter PLAX 3.6 cm IVS Diastolic Thickness 1.1 cm 0.6 - 1.0 / 0.6 - 0.9 cm LVPW Diastolic Thickness 1.1 cm 0.6 - 1.0 / 0.6 - 0.9 cm LV Relative Wall Thickness 0.4 RV Internal Dim ED PLAX 3.7 cm LVOT Diameter 2.2 cm LA Systolic Diameter LX 3.8 cm 3.0 - 4.0 / 2.7 - 3.8 cm M-MODE Aortic Root Diameter MM 3.1 cm LA Systolic Diameter MM 3.3 cm LA Ao Ratio MM 1.1 AV Cusp Separation MM 1.6 cm DOPPLER AV Peak Velocity 168.0 cm/s AV Peak Gradient 11.3 mmHg LVOT Peak Velocity 127.0 cm/s LVOT Peak Gradient 6.5 mmHg AV Area Cont Eq pk 2.9 cm MV Area PHT 3.6 cm MR Peak Velocity 483.0 cm/s MR Peak Gradient 93.3 mmHg Mitral E Point Velocity 74.5 cm/s Mitral A Point Velocity 87.9 cm/s Mitral E to A Ratio 0.8 LV E' Lateral Velocity 12.1 cm/s Mitral E to LV E' Lateral Ratio 6.2 LV E' Septal Velocity 9.8 cm/s Mitral E to LV E' Septal Ratio 7.6 TR Peak Velocity 497.0 cm/s TR Peak Gradient 98.8 mmHg Right Atrial Pressure 10.0 mmHg Pulmonary Artery Systolic Pressu 108.8 mmHg Right Ventricular Systolic Press 108.8 mmHg FINDINGS LEFT VENTRICLE Normal left ventricular size. Mild concentric left ventricular hypertrophy. The left ventricular systolic function is normal with an estimated ejection fraction in the range of 60-65%. RIGHT VENTRICLE Normal right ventricular size and systolic function. LEFT ATRIUM The left atrial size is mildly dilated. RIGHT ATRIUM The right atrial size is normal. ATRIAL SEPTUM The interatrial septum not well visualized. AORTA The aortic root and proximal ascending aorta are normal in size on limited imaging. MITRAL VALVE [id number] mitral valve regurgitation. AORTIC VALVE Trileaflet aortic valve. No aortic valve stenosis or regurgitation. TRICUSPID VALVE There is trace tricuspid valve regurgitation. The estimated pulmonary arterial pressure is 30 mmHg. PULMONARY VALVE No pulmonary valve regurgitation or stenosis. VESSELS The inferior vena cava was not well visualized. PERICARDIUM No pericardial effusion. Matt Leon MD, FACC (Electronically Signed) Final Date:20 August 2017 17:44
--- NOTE | 2017-08-20 18:35 | EKG ---
Date Performed: 08/19/2017 Time Performed: 16:15:19 PTAGE: 57 years EKG: SUPRAVENTRICULAR RHYTHM INDETERMINATE AXIS ANTEROSEPTAL MYOCARDIAL INFARCTION ABNORMAL ECG PREVIOUS TRACING : 08/19/2017 13.18 Since the prior tracing, there has been no significant lowe DOCTOR: Kenisha Briggs Interpretating Date/Time 08/20/2017 18:32:52
--- NOTE | 2017-08-20 19:02 | EKG ---
Date Performed: 08/19/2017 Time Performed: 13:18:13 PTAGE: 57 years EKG: Sinus rhythm WITH FIRST DEGREE AV BLOCK ANTEROSEPTAL MYOCARDIAL INFARCTION Tracing is incomplete with lead V3 ina tted, but bassed on lead V4, the patient has had a previous anteroseptal Myocardial infarction Clinic al correlation advised as there is no prior tracing for comparison ABNORMAL ECG NO PREVIOUS TRACING DOCTOR: Kenisha Briggs Interpretating Date/Time 08/21/2017 07:32:04
[2017-08-21] VITALS (10 sets, daily range): BP systolic 91–99; BP diastolic 56–66; PULSE 76–112; RESP 19–25; TEMP 98–98.7; O2SAT 99–100
[2017-08-21 00:51] LABS: AUTOMATED NEUTROPHIL # 3.3 TH/MM3 (1.8-7.7); BASOPHIL % 0.4 % (0.0-2.0); EOSINOPHIL # 0.6 TH/MM3 (0-0.4); EOSINOPHIL % 8.3 % (0.0-4.0); HEMATOCRIT 24.1 % (39.0-51.0); HEMOGLOBIN 8.5 GM/DL (13.0-17.0); LYMPH % 27.6 % (9.0-44.0); LYMPHOCYTE # 1.8 TH/MM3 (1.0-4.8); MEAN CELL VOLUME 101.2 FL (80.0-100.0); MEAN CORPUSCULAR HEMOGLOBIN 35.6 PG (27.0-34.0); MEAN CORPUSCULAR HGB CONC 35.2 % (32.0-36.0); MEAN PLATELET VOLUME 6.1 FL (7.0-11.0); MONO % 15.1 % (0.0-8.0); NEUT % 48.6 % (16.0-70.0); PLATELET COUNT 88 TH/MM3 (150-450); RED BLOOD COUNT 2.38 MIL/MM3 (4.50-5.90); RED CELL DISTRIBUTION WIDTH 18.6 % (11.6-17.2); WHITE BLOOD COUNT 6.7 TH/MM3 (4.0-11.0)
[2017-08-21 01:27] LABS: BANDS 1 % (0-6); LYMPHOCYTES 24 % (9-44); MONOCYTES 15 % (0-8); MYELOCYTES 1 % (0-0); NEUTROPHIL # MANUAL DIFF 3.6 TH/MM3 (1.8-7.7); OVALOCYTES 1+ (NORMAL); POLYS (SEG NEUTROPHILS) 51 % (16-70)
[2017-08-21 01:29] LABS: ACANTHOCYTES 1+ (NORMAL)
[2017-08-21] MEDS: PIPERACIL-TAZO 4.5 GM PREMIX 100 ML IV SCH ×4 (02:39→20:02)
[2017-08-21] MEDS: RESP: ALBUTEROL 2.5 MG/IPRATROPIUM 0.5 MG NEB (SCH) INH ×4 (03:31→21:04)
[2017-08-21 04:12] LABS: AUTOMATED NEUTROPHIL # 2.8 TH/MM3 (1.8-7.7); BASOPHIL % 0.4 % (0.0-2.0); EOSINOPHIL # 0.5 TH/MM3 (0-0.4); EOSINOPHIL % 8.9 % (0.0-4.0); HEMATOCRIT 23.9 % (39.0-51.0); HEMOGLOBIN 8.5 GM/DL (13.0-17.0); LYMPH % 27.3 % (9.0-44.0); LYMPHOCYTE # 1.7 TH/MM3 (1.0-4.8); MEAN CELL VOLUME 100.4 FL (80.0-100.0); MEAN CORPUSCULAR HEMOGLOBIN 35.8 PG (27.0-34.0); MEAN CORPUSCULAR HGB CONC 35.6 % (32.0-36.0); MEAN PLATELET VOLUME 6.2 FL (7.0-11.0); MONO % 17.3 % (0.0-8.0); MONOCYTE # 1.1 TH/MM3 (0-0.9); NEUT % 46.1 % (16.0-70.0); PLATELET COUNT 82 TH/MM3 (150-450); RED BLOOD COUNT 2.38 MIL/MM3 (4.50-5.90); RED CELL DISTRIBUTION WIDTH 18.5 % (11.6-17.2); WHITE BLOOD COUNT 6.1 TH/MM3 (4.0-11.0)
[2017-08-21 04:59] LABS: ALBUMIN 2.8 GM/DL (3.4-5.0); ALKALINE PHOSPHATASE 92 U/L (45-117); ALT (GPT) 18 U/L (12-78); AST (GOT) 31 U/L (15-37); BICARBONATE 23.8 MEQ/L (21.0-32.0); BLOOD UREA NITROGEN 6 MG/DL (7-18); CALCIUM 8.3 MG/DL (8.5-10.1); CHLORIDE 107 MEQ/L (98-107); CREATININE 0.78 MG/DL (0.60-1.30); DIRECT BILIRUBIN ADULT 2.7 MG/DL (0.0-0.2); GLOMERULAR FILTRATION RATE 103 ML/MIN (>89); GLUCOSE,RANDOM 126 MG/DL (74-106); INDIRECT BILIRUBIN 3.9 MG/DL (0.0-0.8); SODIUM (NA) 141 MEQ/L (136-145); TOTAL BILIRUBIN ADULT 6.6 MG/DL (0.2-1.0); TOTAL PROTEIN 4.8 GM/DL (6.4-8.2)
[2017-08-21] MEDS: ALBUMIN 5% INJ 500 ML IV SCH ×3 (07:09→18:09)
[2017-08-21] MEDS: SODIUM CHLORIDE 0.9% FLUSH 10 ML FLUSH IV FLUSH SCH ×2 (08:28→20:02)
[2017-08-21] MEDS: DOCUSATE SODIUM 50 MG/SENNA 8.6 MG TAB PO SCH ×2 (08:28→20:02)
[2017-08-21] MEDS: PANTOPRAZOLE SODIUM 40 MG VIAL IV PUSH SCH (08:28)
[2017-08-21] MEDS: LACTULOSE SYRUP 20 GM/30 ML CUP DOBHOFF SCH ×2 (08:28→20:02)
[2017-08-21 08:50] LABS: ACANTHOCYTES OCC (NORMAL); OVALOCYTES 1+ (NORMAL); TARGET CELLS 1+ (NORMAL)
[2017-08-21 08:51] LABS: KERATOCYTES OCC (NORMAL)
[2017-08-21] MEDS: D5-NS + KCL 20 MEQ INJ 1,000 ML IV SCH ×2 (11:01→20:02)
--- NOTE | 2017-08-21 12:04 | HHI.CCPN ---
Subjective Remarks/Hospital Course 08/19: Patient is a 57-year-old male sent by [facility] for evaluation of altered mental status. Per EMS report patient has been more lethargic since yesterday. He is normally verbal, [facility] staff states that he has been lethargic and nonverbal since that time. Patient is not verbally responding, he is withdrawing from pain. He appears jaundiced however EVAC said that this is his baseline. Patient has medical history significant for end-stage renal disease, cirrhosis, hepatic encephalopathy, alcoholism, esophageal varices. 08/20: Resting in bed comfortably not in any acute distress. Blood pressure borderline. Was off Levophed earlier however now being restarted for hypotension. 08/21: Resting comfortably in bed. More awake. Passed swallow eval. Remains on Levophed 4 mics per minute. Underwent right sided thoracentesis by IR yesterday with drainage of 200 cc of pleural fluid which appears transudative. Objective Vital Signs Date Time Temp Pulse Resp B/P (MAP) Pulse Ox O2 Delivery O2 Flow Rate FiO2 08/21/17 07:00 100 Nasal Cannula 2.00 08/21/17 04:00 98.0 84 24 95/56 (69) Intake and Output 08/21/17 08/21/17 08/22/17 08:00 16:00 00:00 Intake Total 1000 ml Output Total 1725 ml Balance -725 ml Result Diagram: 08/21/17 0400 08/21/17 0400 Imaging Last Impressions Chest X-Ray 08/19/17 1704 Signed Impressions: Service Date/Time: Saturday, August 19, 2017 17:08 - CONCLUSION: 1. Right central line tip projects in the right atrium. No evidence pneumothorax. 2. Increasing right lower chest opacity characteristic of a combination of airspace disease and pleural effusion. Daniel Sawyer MD Head CT 08/19/17 0000 Signed Impressions: Service Date/Time: Saturday, August 19, 2017 14:13 - CONCLUSION: 1. No acute intracranial abnormalities. No significant change from July 05. Sandeep Morgan MD Abdomen/Pelvis CT 08/19/17 0000 Signed Impressions: Service Date/Time: Saturday, August 19, 2017 15:39 - CONCLUSION: 1. Liver cirrhosis with severe varices. Trace free fluid. 2. Bowel containing ventral hernia without bowel obstruction. 3. Numerous gallstones. 4. Moderate right effusion with compressive atelectasis. 5. Gynecomastia. 6. Mild compression fracture through superior plate of T12 with mild retropulsion. Sandeep Morgan MD Disinhibition Score: 17.50 Aggression Score: 21.00 Lability Score: 32.62 Agitated Behavior Total Score: 21 Objective Remarks Narrative GENERAL: Well-developed, well-nourished male. SKIN: Warm and dry. Jaundice HEAD: Atraumatic. Normocephalic. EYES: Pupils equal and round. Positive scleral icterus. No injection or drainage. ENT: No nasal bleeding or discharge. Mucous membranes pink and moist. NECK: Trachea midline. No JVD. CARDIOVASCULAR: Regular rate and rhythm. RESPIRATORY: No accessory muscle use. Diminished in bases. No wheezing or crackles GASTROINTESTINAL: Abdomen soft, non-tender, nondistended. Hepatic and splenic margins not palpable. Positive bowel sounds, no rebound, no guarding MUSCULOSKELETAL: Extremities without clubbing, cyanosis, or edema. No obvious deformities. NEUROLOGICAL: Drowsy, arousable, on inquiry answers that he is at [facility] though speech is slurred. Pupils 3mm bilaterally, reactive to light. No obvious cranial nerve deficits. localizes to pain with all 4 extremities. Motor grossly within normal limits. A/P Assessment and Plan 57-year-old male with: Encephalopathy Hypotension Possible sepsis Alcohol-induced liver cirrhosis Thrombocytopenia Coagulopathy Esophageal varices Right pleural effusion with underlying atelectasis versus pneumonia History of sleep apnea on home C Pap H/o seizures Plan: Neuro: Avoid sedatives and narcotics. Follow neuro status. Attempted Dobbhoff at night however could not pass beyond GE junction. Initiate lactulose 30 mL twice a day. Ammonia level within normal limits currently. Head CT unremarkable. Continue lamotrigine. EEG completed. Suspect seizure vs hepatic encephalopathy with question of underlying infection. Cardiovascular: Status post 3 L normal saline bolus in the ER. Remains on Levophed for pressor support. Hold nadolol and spironolactone in view of hypotension. Continue maintenance IV fluids. Add Midodrin 5 mg by mouth every 8 hourly to attempt titrating off Levophed. Pulmonary: Continue supplemental O2 as needed. Currently protecting airway. If neurologic status worsens, may require endotracheal intubation for airway protection. Patient's tells me that he has had a Pleurx catheter however has pulled out twice before for recurrent right pleural effusion. Status post US guided right thoracentesis with IR on 08/20 with drainage of 200 cc of pleural fluid. GI/liver: Passed swallow eval, we'll initiate soft mechanical diet. Lactulose twice a day. Follow LFTs. Appears to have advanced liver cirrhosis. GI consult requested and following for further evaluation. Renal/: IV hydration, strict intake output, monitor and replete electro lites , follow BUN/creatinine. Discontinue Salomon catheter ID: Follow-up blood cultures. Empiric antibiotic coverage with IV Zosyn, vancomycin IV single dose. Endocrine: Watch for hyperglycemia, SSI for glycemic control if needed. Heme: Follow CBC and coags. Will give vitamin K 10 mg IV now in view of elevated INR. Prophylaxis: PPI/SCDs. Hold subcutaneous heparin or Lovenox in view of concern for bleeding. Access: Right subclavian central line placed by ER physician on 08/19/17 Prognosis appears poor. Consulted palliative care service to assist with deciding goals of therapy. Condition critical Time spent on critical care excluding procedures 35 minutes Bill Echavarria MD Aug 21, 2017 12:04
--- NOTE | 2017-08-21 12:28 | MG ---
cc: Jerson Gudino MD DATE OF STUDY: 08/20/2017 EEG #[id number] A 57-year-old with history of lethargy, mental status changes. 1 to 4 Hz background activity, 20 to 50 microvolts. Some rapid eye movement is noted suggestive of REM sleep. Background incremented up to 4 to 5 Hz string. Occasional arousable state. No significant driving with photic stimulation. Single lead EKG showing sinus rhythm. INTERPRETATION: Mild to moderate encephalopathy with REM and non REM sleep observed. No epileptic activity. Clinical correlation. Jerson Gudino MD MG/TL , 12:13 PM , 12:27 PM
--- NOTE | 2017-08-21 13:08 | HHI.HCPN ---
Reason for visit a. To assist with evaluation and management of symptoms including: debility , encephalopathy b. To assist medical decision maker(s) with: better understanding of current medical conditions; weighing benefits/burdens of medical treatment options; making medical treatment decisions. . Subjective/Interval History Mr. Mccormack is a 57 year old male who was transferred from [facility] to [facility] on 08/19/17 for evaluation of altered mental status. Patient has a known history of ES liver disease, cirrhosis, hepatic encephalopathy, EtOH abuse, and esophageal varices. Patient reportedly quit drinking in 05/2017. Per EMS report the patient had become increasingly lethargic and nonverbal. Follow-up visit for symptom management and clarification of medical treatment goals. Patient seen in the [facility], room 1325. No family members were present. Patient is sitting upright in his bed with his eyes closed. He arouses to verbal stimuli, responds to some simple questions with 1-2 word answers. However speech is garbled at times. EEG on 08/20/17 showed mild to moderate encephalopathy, no seizure activity was noted. Ammonia level on 08/19/17 was 28. Hypotensive on Levophed; systolic pressures in the 90s. Afebrile. Blood cultures negative to date; remains on empiric antibiotic coverage with Zosyn. Underwent right-sided thoracentesis with IR yesterday 2017, approximately 200ml of transudative pleural fluid was removed. Culture of pleural fluid is pending. Palliative care attempted to contact patient's and a message was left on voicemail, awaiting return phone call. Previously, the patient's has expressed aggressive goals. She states she has been approached by hospice in the past and she doesn't need to talk to them again any time soon. . Advance Directives Advance Directive Specifics Documented care wishes: reports that she is power of assistant county attorney and healthcare surrogate, but documentation has yet to be provided. . . Objective Vital Signs Date Time Temp Pulse Resp B/P (MAP) Pulse Ox O2 Delivery O2 Flow Rate FiO2 08/21/17 07:00 100 Nasal Cannula 2.00 08/21/17 04:00 98.0 84 24 95/56 (69) 99 08/21/17 00:00 98.6 112 21 91/57 (68) 100 08/20/17 23:00 81 08/20/17 22:25 81 96/62 08/20/17 21:38 100 Nasal Cannula 1.00 08/20/17 20:00 98.8 78 19 97/61 (73) 100 08/20/17 19:00 100 Nasal Cannula 2.00 08/20/17 16:00 98.5 76 20 99/63 (75) 100 08/20/17 15:00 80 08/20/17 13:05 86/53 (64) 100 Intake & Output 08/21/17 08/21/17 07:00 19:00 Intake Total 4771 ml Output Total 1725 ml Balance 3046 ml Intake IV Total 3771 ml Albumin 1000 ml Output Urine Total 1725 ml Physical Exam CONSTITUTIONAL/GENERAL: This is an adequately nourished patient, in no apparent distress. TUBES/LINES/DRAINS: PIV, Salomon catheter SKIN: Jaundice. Skin temperature appropriate. Not diaphoretic. HEAD: Atraumatic. Normocephalic. EYES: Pupils equal and round and reactive. Extraocular motions intact. + scleral icterus. No injection or drainage. Fundi not examined. ENT: Hearing grossly normal. Nose without bleeding or purulent drainage. NECK: Trachea midline. Supple, nontender. No palpable thyroid enlargement or nodularity. CARDIOVASCULAR: Regular rate and rhythm without murmurs, gallops, or rubs. No JVD. Peripheral pulses symmetric. RESPIRATORY/CHEST: Symmetric, unlabored respirations. Breath sounds diminished in bases bilaterally. No wheezes, rales, or rhonchi. GASTROINTESTINAL: Abdomen soft, non-tender, nondistended. No guarding. Bowel sounds present. GENITOURINARY: Without palpable bladder distension. Salomon catheter in place. MUSCULOSKELETAL: Extremities without clubbing, cyanosis, or edema. No joint tenderness or effusion noted. No calf tenderness. No mottling or clubbing. LYMPHATICS: No palpable cervical or supraclavicular adenopathy. NEUROLOGICAL: Lethargic. Opens eyes briefly to verbal stimuli. Follows some simple commands but not consistently. Does not respond verbally to questions. PSYCHIATRIC: No obvious anxiety/depression. No apparent hallucinations or other psychotic thought process. . Diagnostic Tests Laboratory Laboratory Tests Test 08/19/17 13:00 08/19/17 13:37 08/19/17 15:32 08/19/17 20:05 White Blood Count 8.9 TH/MM3 (4.0-11.0) Red Blood Count 3.51 MIL/MM3 (4.50-5.90) Hemoglobin 12.2 GM/DL (13.0-17.0) Hematocrit 34.8 % (39.0-51.0) Mean Corpuscular Volume 99.1 FL (80.0-100.0) Mean Corpuscular Hemoglobin 34.7 PG (27.0-34.0) Mean Corpuscular Hemoglobin Concent 35.0 % (32.0-36.0) Red Cell Distribution Width 18.3 % (11.6-17.2) Platelet Count 127 TH/MM3 (150-450) Mean Platelet Volume 6.4 FL (7.0-11.0) Neutrophils (%) (Auto) 63.0 % (16.0-70.0) Lymphocytes (%) (Auto) 18.2 % (9.0-44.0) Monocytes (%) (Auto) 12.4 % (0.0-8.0) Eosinophils (%) (Auto) 5.8 % (0.0-4.0) Basophils (%) (Auto) 0.6 % (0.0-2.0) Neutrophils # (Auto) 5.6 TH/MM3 (1.8-7.7) Lymphocytes # (Auto) 1.6 TH/MM3 (1.0-4.8) Monocytes # (Auto) 1.1 TH/MM3 (0-0.9) Eosinophils # (Auto) 0.5 TH/MM3 (0-0.4) Basophils # (Auto) 0.1 TH/MM3 (0-0.2) CBC Comment DIFF FINAL Differential Comment Prothrombin Time 15.7 SEC (9.8-11.6) Prothromb Time International Ratio 1.6 RATIO Activated Partial Thromboplast Time 41.7 SEC (24.3-30.1) Urine Color YELLOW (YELLW/STRAW) Urine Turbidity CLEAR (CLEAR) Urine pH 7.5 (5.0-8.5) Urine Specific [place] 1.010 (1.002-1.035) Urine Protein NEG mg/dL (NEG-TRACE) Urine Glucose (UA) NEG mg/dL (NEG) Urine Ketones NEG mg/dL (NEG) Urine Occult Blood NEG (NEG) Urine Nitrite NEG (NEG) Urine Bilirubin NEG (NEG) Urine Urobilinogen 2.0 MG/DL (LESS THAN Urine Leukocyte Esterase NEG (NEG) Urine RBC 1 /hpf (0-3) Urine WBC 2 /hpf (0-5) Urine Hyaline Casts 13 /lpf (RARE) Urine Mucus FEW /lpf (OCC) Microscopic Urinalysis Comment CATH-CULT NOT IND Blood Urea Nitrogen 10 MG/DL (7-18) Creatinine 1.04 MG/DL (0.60-1.30) Random Glucose 99 MG/DL (74-106) Total Protein 6.1 GM/DL (6.4-8.2) Albumin 2.6 GM/DL (3.4-5.0) Calcium Level 9.0 MG/DL (8.5-10.1) Alkaline Phosphatase 164 U/L (45-117) Aspartate Amino Transf (AST/SGOT) 44 U/L (15-37) Alanine Aminotransferase (ALT/SGPT) 29 U/L (12-78) Total Bilirubin 8.1 MG/DL (0.2-1.0) Sodium Level 134 MEQ/L (136-145) Potassium Level 3.5 MEQ/L (3.5-5.1) Chloride Level 95 MEQ/L (98-107) Carbon Dioxide Level 29.1 MEQ/L (21.0-32.0) Anion Gap 10 MEQ/L (5-15) Estimat Glomerular Filtration Rate 74 ML/MIN (>89) Lactic Acid Level 2.4 mmol/L (0.4-2.0) 1.9 mmol/L (0.4-2.0) 1.3 mmol/L (0.4-2.0) Ammonia 28 MCMOL/L (11-32) Total Creatine Kinase 49 U/L (39-308) 42 U/L (39-308) Troponin I LESS THAN 0.02 NG/ML B-Type Natriuretic Peptide 59 PG/ML (0-100) Test 08/20/17 02:15 08/20/17 06:10 08/20/17 12:45 08/21/17 00:30 Blood Urea Nitrogen 9 MG/DL (7-18) 10 MG/DL (7-18) Creatinine 0.80 MG/DL (0.60-1.30) 0.83 MG/DL (0.60-1.30) Random Glucose 125 MG/DL (74-106) 121 MG/DL (74-106) Total Protein 5.0 GM/DL (6.4-8.2) 4.9 GM/DL (6.4-8.2) Albumin 2.1 GM/DL (3.4-5.0) 2.1 GM/DL (3.4-5.0) Calcium Level 7.7 MG/DL (8.5-10.1) 7.8 MG/DL (8.5-10.1) Magnesium Level 1.5 MG/DL (1.5-2.5) 1.4 MG/DL (1.5-2.5) Alkaline Phosphatase 127 U/L (45-117) 128 U/L (45-117) Aspartate Amino Transf (AST/SGOT) 35 U/L (15-37) 37 U/L (15-37) Alanine Aminotransferase (ALT/SGPT) 23 U/L (12-78) 22 U/L (12-78) Total Bilirubin 7.1 MG/DL (0.2-1.0) 7.1 MG/DL (0.2-1.0) Sodium Level 137 MEQ/L (136-145) 137 MEQ/L (136-145) Potassium Level 3.8 MEQ/L (3.5-5.1) 3.9 MEQ/L (3.5-5.1) Chloride Level 103 MEQ/L (98-107) 104 MEQ/L (98-107) Carbon Dioxide Level 27.4 MEQ/L (21.0-32.0) 24.1 MEQ/L (21.0-32.0) Anion Gap 7 MEQ/L (5-15) 9 MEQ/L (5-15) Estimat Glomerular Filtration Rate 100 ML/MIN (>89) 96 ML/MIN (>89) Total Creatine Kinase 59 U/L (39-308) Troponin I LESS THAN 0.02 NG/ML White Blood Count 8.6 TH/MM3 (4.0-11.0) 6.7 TH/MM3 (4.0-11.0) Red Blood Count 2.92 MIL/MM3 (4.50-5.90) 2.38 MIL/MM3 (4.50-5.90) Hemoglobin 10.2 GM/DL (13.0-17.0) 8.5 GM/DL (13.0-17.0) Hematocrit 29.4 % (39.0-51.0) 24.1 % (39.0-51.0) Mean Corpuscular Volume 100.9 FL (80.0-100.0) 101.2 FL (80.0-100.0) Mean Corpuscular Hemoglobin 35.1 PG (27.0-34.0) 35.6 PG (27.0-34.0) Mean Corpuscular Hemoglobin Concent 34.8 % (32.0-36.0) 35.2 % (32.0-36.0) Red Cell Distribution Width 18.2 % (11.6-17.2) 18.6 % (11.6-17.2) Platelet Count 117 TH/MM3 (150-450) 88 TH/MM3 (150-450) Mean Platelet Volume 6.3 FL (7.0-11.0) 6.1 FL (7.0-11.0) Neutrophils (%) (Auto) 58.0 % (16.0-70.0) 48.6 % (16.0-70.0) Lymphocytes (%) (Auto) 21.7 % (9.0-44.0) 27.6 % (9.0-44.0) Monocytes (%) (Auto) 12.4 % (0.0-8.0) 15.1 % (0.0-8.0) Eosinophils (%) (Auto) 7.2 % (0.0-4.0) 8.3 % (0.0-4.0) Basophils (%) (Auto) 0.7 % (0.0-2.0) 0.4 % (0.0-2.0) Neutrophils # (Auto) 5.0 TH/MM3 (1.8-7.7) 3.3 TH/MM3 (1.8-7.7) Lymphocytes # (Auto) 1.9 TH/MM3 (1.0-4.8) 1.8 TH/MM3 (1.0-4.8) Monocytes # (Auto) 1.1 TH/MM3 (0-0.9) 1.0 TH/MM3 (0-0.9) Eosinophils # (Auto) 0.6 TH/MM3 (0-0.4) 0.6 TH/MM3 (0-0.4) Basophils # (Auto) 0.1 TH/MM3 (0-0.2) 0.0 TH/MM3 (0-0.2) CBC Comment AUTO DIFF AUTO DIFF Differential Comment AUTO DIFF CONFIRMED FINAL DIFF MANUAL Spherocytes OCC (NORMAL) Ovalocytes 1+ (NORMAL) 1+ (NORMAL) Acanthocytes 1+ (NORMAL) 1+ (NORMAL) Keratocytes OCC (NORMAL) Prothrombin Time 17.1 SEC (9.8-11.6) Prothromb Time International Ratio 1.7 RATIO Activated Partial Thromboplast Time 46.3 SEC (24.3-30.1) Phosphorus Level 2.2 MG/DL (2.5-4.9) Lactic Acid Level 2.1 mmol/L (0.4-2.0) Pleural Fluid pH 8.5 Pleural Fluid WBC 1126 /MM3 (0-10) Pleural Fluid RBC 48948 /MM3 (0-0) Pleural Fluid Neutrophils 4 % Pleural Fluid Lymphocytes 7 % Pleural Fluid Eosinophils 85 % Pleural Fluid Basophils 1 % Pleural Fluid Histiocytes 3 % Pleural Fluid Total Protein 2.2 GM/DL Pleural Fluid LDH 321 U/L Pleural Fluid Glucose 115 MG/DL Differential Total Cells Counted 100 Neutrophils % (Manual) 51 % (16-70) Band Neutrophils % 1 % (0-6) Lymphocytes % 24 % (9-44) Monocytes % 15 % (0-8) Eosinophils % 8 % (0-4) Neutrophils # (Manual) 3.6 TH/MM3 (1.8-7.7) Myelocytes 1 % (0-0) Platelet Estimate LOW (NORMAL) Platelet Morphology Comment NORMAL (NORMAL) Test 08/21/17 04:00 White Blood Count 6.1 TH/MM3 (4.0-11.0) Red Blood Count 2.38 MIL/MM3 (4.50-5.90) Hemoglobin 8.5 GM/DL (13.0-17.0) Hematocrit 23.9 % (39.0-51.0) Mean Corpuscular Volume 100.4 FL (80.0-100.0) Mean Corpuscular Hemoglobin 35.8 PG (27.0-34.0) Mean Corpuscular Hemoglobin Concent 35.6 % (32.0-36.0) Red Cell Distribution Width 18.5 % (11.6-17.2) Platelet Count 82 TH/MM3 (150-450) Mean Platelet Volume 6.2 FL (7.0-11.0) Neutrophils (%) (Auto) 46.1 % (16.0-70.0) Lymphocytes (%) (Auto) 27.3 % (9.0-44.0) Monocytes (%) (Auto) 17.3 % (0.0-8.0) Eosinophils (%) (Auto) 8.9 % (0.0-4.0) Basophils (%) (Auto) 0.4 % (0.0-2.0) Neutrophils # (Auto) 2.8 TH/MM3 (1.8-7.7) Lymphocytes # (Auto) 1.7 TH/MM3 (1.0-4.8) Monocytes # (Auto) 1.1 TH/MM3 (0-0.9) Eosinophils # (Auto) 0.5 TH/MM3 (0-0.4) Basophils # (Auto) 0.0 TH/MM3 (0-0.2) CBC Comment AUTO DIFF Differential Comment AUTO DIFF CONFIRMED Platelet Estimate LOW (NORMAL) Platelet Morphology Comment NORMAL (NORMAL) Target Cells 1+ (NORMAL) Ovalocytes 1+ (NORMAL) Acanthocytes OCC (NORMAL) Keratocytes OCC (NORMAL) Blood Urea Nitrogen 6 MG/DL (7-18) Creatinine 0.78 MG/DL (0.60-1.30) Random Glucose 126 MG/DL (74-106) Total Protein 4.8 GM/DL (6.4-8.2) Albumin 2.8 GM/DL (3.4-5.0) Calcium Level 8.3 MG/DL (8.5-10.1) Alkaline Phosphatase 92 U/L (45-117) Aspartate Amino Transf (AST/SGOT) 31 U/L (15-37) Alanine Aminotransferase (ALT/SGPT) 18 U/L (12-78) Total Bilirubin 6.6 MG/DL (0.2-1.0) Direct Bilirubin 2.7 MG/DL (0.0-0.2) Sodium Level 141 MEQ/L (136-145) Potassium Level 3.8 MEQ/L (3.5-5.1) Chloride Level 107 MEQ/L (98-107) Carbon Dioxide Level 23.8 MEQ/L (21.0-32.0) Anion Gap 10 MEQ/L (5-15) Estimat Glomerular Filtration Rate 103 ML/MIN (>89) Indirect Bilirubin 3.9 MG/DL (0.0-0.8) Result Diagram: 08/21/170 08/21/170 Microbiology Microbiology Date/Time Source Procedure Growth Status 08/19/17 13:30 Blood Peripheral Aerobic Blood Culture - Preliminary NO GROWTH IN 2 DAYS Resulted 08/19/17 13:30 Blood Peripheral Anaerobic Blood Culture - Preliminary NO GROWTH IN 2 DAYS Resulted 08/19/17 13:00 Blood Peripheral Aerobic Blood Culture - Preliminary NO GROWTH IN 2 DAYS Resulted 08/19/17 13:00 Blood Peripheral Anaerobic Blood Culture - Preliminary NO GROWTH IN 2 DAYS Resulted 08/20/17 12:45 Fluid Pleural Fluid Gram Stain - Final Resulted 08/20/17 12:45 Fluid Pleural Fluid Body Fluid Culture Pending Resulted Procedures 08/19/2017: Central venous line placement Assessment and Plan Disease Oriented Problem List: (1) Hypotension (2) Hepatic encephalopathy (3) Liver cirrhosis, alcoholic (4) Thrombocytopenia (5) Coagulopathy (6) Esophageal varices (7) Pleural effusion on right (8) Sleep apnea (9) Seizure disorder Symptom Scale: (1) Encephalopathy (2) Debility Pertinent Non-Medical Issues Psychosocial: Patient was born and raised in [facility]. He lives with his , Natalie, in [place]. They have been approximately 2 years. 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 He has 3 adult children with his first . His oldest son is who is 27 has Asperger's. He also has a 20 year old and a 15 year old. The 15 year old lives in [place] with his mother. Spiritual: [employer] [facility] Legal: Per [place] statutes, in the absence of written advanced directive HCP decision-making falls to the patient's . Ethical issues impacting care: No known ethical issues impacting care at this time. . Important Contacts Natalie Robert, : [phone] . Prognosis Patient with ES Liver Disease. MELD 22 upon admission. Overall prognosis is poor. Palliative care is following to assist with symptom management and clarification of medical treatment goals. . . Code Status: Full Code Plan * FULL CODE * Decision-making: Patient does not have insight or judgment related to his current medical conditions. Per [place] statutes, in the absence of her advanced directives healthcare proxy decision making would fall to the patient' s . * AGGRESSIVE GOALS: patient's states that the patient has been working hard to get stronger. She states her has been working with physical therapy and "he's improved a little." They plan to continue rehabilitation as soon as they can get him back to [facility]. * Discussed with bedside nurse. * Palliative care attempted to contact patient's and a message was left on voicemail, awaiting return phone call. Previously, the patient's has expressed aggressive goals. She states she has been approached by hospice in the past and she doesn't need to talk to them again any time soon. * Symptom management: = Debility: Patient has been residing at [facility] for rehabilitation. DME includes, walker, BSC, nebulizer and CPAP. [facility] will accept the patient back upon discharge. = Encephalopathy: CT head unremarkable. Ammonia level normal at 28. Avoiding sedatives and narcotics. If no improvement in neurologic status by tomorrow - consider MRI brain. Continue Lamotrigine. Suspect seizure vs hepatic encephalopathy with question of underlying infection. * Palliative care will continue to follow this patient throughout his hospitalization to establish trust, assist with symptom management and clarification of medical treatment goals. . Attestation To help prompt me to consider important information that might be impacting today's encounter and assessment, information from prior notes written by myself or my colleagues may have been "brought forward" into today's note. My signature on this note, however, is an attestation that I personally performed the exam, history, and/or decision-making noted today, and, unless otherwise indicated, the interactions with patient, family, and staff as well as the review of records all occurred today. I also attest that the listed assessment and stated plan reflect my best clinical judgment today based on the combination of historical information, prior notes, and today's exam/ interactions. When time spent is documented, it refers only to time spent today by the signer, or if indicated, combined time spent today by collaborating physician/nurse practitioner. Sandy Coronado Aug 21, 2017 13:08
--- NOTE | 2017-08-21 13:14 | HHI.GIFU ---
Subjective Remarks Resting in bed, in restraints. Begging to be let out of restraints and go home. (Droetha Brito) Objective Vitals I&O Vital Signs Date Time Temp Pulse Resp B/P (MAP) Pulse Ox O2 Delivery O2 Flow Rate FiO2 08/21/17 07:00 100 Nasal Cannula 2.00 08/21/17 04:00 98.0 84 24 95/56 (69) 99 08/21/17 00:00 98.6 112 21 91/57 (68) 100 08/20/17 23:00 81 08/20/17 22:25 81 96/62 08/20/17 21:38 100 Nasal Cannula 1.00 08/20/17 20:00 98.8 78 19 97/61 (73) 100 08/20/17 19:00 100 Nasal Cannula 2.00 08/20/17 16:00 98.5 76 20 99/63 (75) 100 08/20/17 15:00 80 I/O 08/20/17 08/20/17 08/20/17 08/21/17 08/21/17 08/21/17 07:00 15:00 23:00 07:00 15:00 23:00 Intake Total 462 ml 700 ml 1735 ml 4036 ml Output Total 800 ml 625 ml 1725 ml Balance -338 ml 700 ml 1110 ml 2311 ml Intake IV Total 462 ml 700 ml 735 ml 3036 ml Albumin 1000 ml 1000 ml Output Urine Total 800 ml 625 ml 1725 ml Laboratory Laboratory Tests Test 08/21/17 00:30 08/21/17 04:00 White Blood Count 6.7 6.1 Red Blood Count 2.38 2.38 Hemoglobin 8.5 8.5 Hematocrit 24.1 23.9 Mean Corpuscular Volume 101.2 100.4 Mean Corpuscular Hemoglobin 35.6 35.8 Mean Corpuscular Hemoglobin Concent 35.2 35.6 Red Cell Distribution Width 18.6 18.5 Platelet Count 88 82 Mean Platelet Volume 6.1 6.2 Neutrophils (%) (Auto) 48.6 46.1 Lymphocytes (%) (Auto) 27.6 27.3 Monocytes (%) (Auto) 15.1 17.3 Eosinophils (%) (Auto) 8.3 8.9 Basophils (%) (Auto) 0.4 0.4 Neutrophils # (Auto) 3.3 2.8 Lymphocytes # (Auto) 1.8 1.7 Monocytes # (Auto) 1.0 1.1 Eosinophils # (Auto) 0.6 0.5 Basophils # (Auto) 0.0 0.0 CBC Comment AUTO DIFF AUTO DIFF Differential Total Cells Counted 100 Neutrophils % (Manual) 51 Band Neutrophils % 1 Lymphocytes % 24 Monocytes % 15 Eosinophils % 8 Neutrophils # (Manual) 3.6 Myelocytes 1 Differential Comment FINAL DIFF MANUAL AUTO DIFF CONFIRMED Platelet Estimate LOW LOW Platelet Morphology Comment NORMAL NORMAL Ovalocytes 1+ 1+ Acanthocytes 1+ OCC Target Cells 1+ Keratocytes OCC Blood Urea Nitrogen 6 Creatinine 0.78 Random Glucose 126 Total Protein 4.8 Albumin 2.8 Calcium Level 8.3 Alkaline Phosphatase 92 Aspartate Amino Transf (AST/SGOT) 31 Alanine Aminotransferase (ALT/SGPT) 18 Total Bilirubin 6.6 Direct Bilirubin 2.7 Sodium Level 141 Potassium Level 3.8 Chloride Level 107 Carbon Dioxide Level 23.8 Anion Gap 10 Estimat Glomerular Filtration Rate 103 Indirect Bilirubin 3.9 Date/Time Source Procedure Growth Status 08/19/17 13:30 Blood Peripheral Aerobic Blood Culture - Preliminary NO GROWTH IN 2 DAYS Resulted 08/19/17 13:30 Blood Peripheral Anaerobic Blood Culture - Preliminary NO GROWTH IN 2 DAYS Resulted 08/20/17 12:45 Fluid Pleural Fluid Gram Stain - Final Resulted 08/20/17 12:45 Fluid Pleural Fluid Body Fluid Culture Pending Resulted Imaging Last Impressions Thoracentesis Ultrasound 08/20/17 0000 Signed Impressions: Service Date/Time: Sunday, August 20, 2017 11:38 - CONCLUSION: Uncomplicated ultrasound guided thoracentesis. Usman Umana MD Chest X-Ray 08/20/17 0000 Signed Impressions: Service Date/Time: Sunday, August 20, 2017 12:54 - CONCLUSION: 1. Interval removal of the right-sided pleural effusion. 2. Small right-sided pneumothorax. This measures approximately 1 cm the lung apex. Followup examination in 2 hours to assess for stability is warranted. Bahman Alegre MD Head CT 08/19/17 0000 Signed Impressions: Service Date/Time: Saturday, August 19, 2017 14:13 - CONCLUSION: 1. No acute intracranial abnormalities. No significant change from July 05. Sandeep Morgan MD Abdomen/Pelvis CT 08/19/17 0000 Signed Impressions: Service Date/Time: Saturday, August 19, 2017 15:39 - CONCLUSION: 1. Liver cirrhosis with severe varices. Trace free fluid. 2. Bowel containing ventral hernia without bowel obstruction. 3. Numerous gallstones. 4. Moderate right effusion with compressive atelectasis. 5. Gynecomastia. 6. Mild compression fracture through superior plate of T12 with mild retropulsion. Sandeep Morgan MD Abdomen X-Ray 08/19/17 0000 Signed Impressions: Service Date/Time: Saturday, August 19, 2017 21:58 - CONCLUSION: Dobbhoff catheter tip is at the GE junction. Daniel Sawyer MD Physical Exam HEENT: normocephalic; atraumatic; icteric CHEST: CTA CARDIAC: RRR ABDOMEN: Soft, nondistended, RUQ TTP; +hepatomegaly; bowel sounds are present in all four quadrants. EXTREMITIES: No clubbing, cyanosis, or edema. SKIN: Normal; no rash; no jaundice. 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 labs at [facility] unremarkable AFP. quit drinking 05/2018 palliative care is following and goals are aggressive. MELD 20. DF 31. He would not be eligible for liver transplant at this time d/t etoh as recently as Dec prior admission at [facility] his indirect bili > direct - AMS - unk etiology NH 28. pt nonverbal, relatively unresponsive. palliative care following - anemia - had EGD 07/23/17 at [facility] with Dr Yao and finding esophageal varices grade 1, no active bleeding portal gatropathy HH stable compared to values from [facility] < 1 week ago 08/21/17 mild decrease HH no obvious bleeding. awake today. pt says he just wants to go home LFTs WNL today except for tbil PLAN - await palliative care follow up - monitor labs - continue lactulose - supportive care - GI will sign off, please reconsult if needed pt seen by myself and Dr Ambrose and this note is on his behalf (Doretha Brito) Physician Comments Agree with above. Please notify us if needed again. (Cassy Ambrose MD) Doretha Brito Aug 21, 2017 13:14 Cassy Ambrose MD Aug 21, 2017 13:45
[2017-08-21] MEDS: MIDODRINE 5 MG TAB PO SCH ×2 (16:04→18:09)
[2017-08-21 16:39] LABS: AMYLASE BODY FLUID 43 U/L; AMYLASE BODY FLUID TYPE PLEURAL
--- NOTE | 2017-08-21 19:33 | EKG ---
Date Performed: 08/21/2017 Time Performed: 01:33:02 PTAGE: 57 years EKG: Sinus rhythm . Possible inferior infarct - age undetermined Possible anteroseptal infarct - age undetermined Low Q RS voltages in precordial leads Abnormal ECG Since the PREVIOUS TRACING , no significant change noted DOCTOR: Caroline Simon Interpretating Date/Time 08/21/2017 19:33:18
[2017-08-21] MEDS: CHLORHEXIDINE GLUCONATE 2 % 1 PACK (2 CLOTHS) TOP SCH (19:46)
[2017-08-21] MEDS: traMADol HCL 50 MG TAB PO PRN (21:30)
[2017-08-22] VITALS (11 sets, daily range): BP systolic 89–102; BP diastolic 54–67; PULSE 80–92; RESP 19–25; TEMP 98.1–98.6; O2SAT 96–100
[2017-08-22] MEDS: PIPERACIL-TAZO 4.5 GM PREMIX 100 ML IV SCH ×4 (01:28→20:36)
[2017-08-22] MEDS: RESP: ALBUTEROL 2.5 MG/IPRATROPIUM 0.5 MG NEB (SCH) INH ×4 (03:03→20:39)
[2017-08-22] MEDS: D5-NS + KCL 20 MEQ INJ 1,000 ML IV SCH ×2 (04:00→13:55)
[2017-08-22] MEDS: MIDODRINE 5 MG TAB PO SCH ×3 (09:00→17:27)
[2017-08-22] MEDS: PANTOPRAZOLE SODIUM 40 MG VIAL IV PUSH SCH (09:00)
[2017-08-22] MEDS: LACTULOSE SYRUP 20 GM/30 ML CUP DOBHOFF SCH ×2 (09:00→20:36)
[2017-08-22] MEDS: DOCUSATE SODIUM 50 MG/SENNA 8.6 MG TAB PO SCH ×3 (09:00→20:56)
[2017-08-22] MEDS: SODIUM CHLORIDE 0.9% FLUSH 10 ML FLUSH IV FLUSH SCH ×2 (09:01→20:36)
--- NOTE | 2017-08-22 10:21 | HHI.CCPN ---
Subjective Remarks/Hospital Course 08/19: Patient is a 57-year-old [facility] status. Per EMS report patient has been more lethargic since yesterday. He is normally verbal, care home staff states that he has been lethargic and nonverbal since that time. Patient is not verbally responding, he is withdrawing from pain. He appears jaundiced however EVAC said that this is his baseline. Patient has medical history significant for end-stage renal disease, cirrhosis, hepatic encephalopathy, alcoholism, esophageal varices. 08/20: Resting in bed comfortably not in any acute distress. Blood pressure borderline. Was off Levophed earlier however now being restarted for hypotension. 08/21: Resting comfortably in bed. More awake. Passed swallow eval. Remains on Levophed 4 mics per minute. Underwent right sided thoracentesis by IR yesterday with drainage of 200 cc of pleural fluid which appears transudative. 08/22: Awake and alert, resting in bed comfortably. Wants to eat. Off Levophed since yesterday. Follows commands appropriately however still confused. Objective Vital Signs Date Time Temp Pulse Resp B/P (MAP) Pulse Ox O2 Delivery O2 Flow Rate FiO2 08/22/17 04:00 98.2 82 23 92/59 (70) 99 08/21/17 21:04 Nasal Cannula 1.50 Intake and Output 08/22/17 08/22/17 08/23/17 08:00 16:00 00:00 Intake Total 300 ml Output Total 1150 ml Balance -850 ml Result Diagram: 08/21/17 0400 08/21/17 0400 Imaging Last Impressions Chest X-Ray 08/19/17 1704 Signed Impressions: Service Date/Time: Saturday, August 19, 2017 17:08 - CONCLUSION: 1. Right central line tip projects in the right atrium. No evidence pneumothorax. 2. Increasing right lower chest opacity characteristic of a combination of airspace disease and pleural effusion. Daniel Sawyer MD Head CT 08/19/17 0000 Signed Impressions: Service Date/Time: Saturday, August 19, 2017 14:13 - CONCLUSION: 1. No acute intracranial abnormalities. No significant change from July 05. Sandeep Morgan MD Abdomen/Pelvis CT 08/19/17 0000 Signed Impressions: Service Date/Time: Saturday, August 19, 2017 15:39 - CONCLUSION: 1. Liver cirrhosis with severe varices. Trace free fluid. 2. Bowel containing ventral hernia without bowel obstruction. 3. Numerous gallstones. 4. Moderate right effusion with compressive atelectasis. 5. Gynecomastia. 6. Mild compression fracture through superior plate of T12 with mild retropulsion. Sandeep Morgan MD Disinhibition Score: 17.50 Aggression Score: 21.00 Lability Score: 32.62 Agitated Behavior Total Score: 21 Objective Remarks Narrative GENERAL: Well-developed, well-nourished male. SKIN: Warm and dry. Jaundice HEAD: Atraumatic. Normocephalic. EYES: Pupils equal and round. Positive scleral icterus. No injection or drainage. ENT: No nasal bleeding or discharge. Mucous membranes pink and moist. NECK: Trachea midline. No JVD. CARDIOVASCULAR: Regular rate and rhythm. RESPIRATORY: No accessory muscle use. Diminished in bases. No wheezing or crackles GASTROINTESTINAL: Abdomen soft, non-tender, nondistended. Hepatic and splenic margins not palpable. Positive bowel sounds, no rebound, no guarding MUSCULOSKELETAL: Extremities without clubbing, cyanosis, or edema. No obvious deformities. NEUROLOGICAL: Awake, alert, following commands appropriately however confused at times. Pupils 3mm bilaterally, reactive to light. No obvious cranial nerve deficits. localizes to pain with all 4 extremities. Motor grossly within normal limits. A/P Assessment and Plan 57-year-old male with: Encephalopathy Hypotension Possible sepsis Alcohol-induced liver cirrhosis Thrombocytopenia Coagulopathy Esophageal varices Right pleural effusion with underlying atelectasis versus pneumonia History of sleep apnea on home C Pap H/o seizures Plan: Neuro: Avoid sedatives and narcotics. Follow neuro status. lactulose 30 mL twice a day. Ammonia level within normal limits currently. Head CT unremarkable. Continue lamotrigine. EEG completed. Suspect seizure vs hepatic encephalopathy with question of underlying infection. Cardiovascular: Status post 3 L normal saline bolus in the ER. Off Levophed for pressor support. Hold nadolol and spironolactone in view of hypotension. Continue maintenance IV fluids. Added Midodrin 5 mg by mouth every 8 hourly on 08/21. Pulmonary: Continue supplemental O2 as needed. Currently protecting airway. If neurologic status worsens, may require endotracheal intubation for airway protection. Patient's tells me that he has had a Pleurx catheter however has pulled out twice before for recurrent right pleural effusion. Status post US guided right thoracentesis with IR on 08/20 with drainage of 200 cc of pleural fluid. GI/liver: Passed swallow eval, we'll initiate soft mechanical diet. Lactulose twice a day. Follow LFTs. Appears to have advanced liver cirrhosis. GI consult requested and following for further evaluation. Renal/: IV hydration, strict intake output, monitor and replete electro lites , follow BUN/creatinine. Discontinue Salomon catheter ID: Follow-up blood cultures. Empiric antibiotic coverage with IV Zosyn, vancomycin IV single dose. Endocrine: Watch for hyperglycemia, SSI for glycemic control if needed. Heme: Follow CBC and coags. Will give vitamin K 10 mg IV now in view of elevated INR. Prophylaxis: PPI/SCDs. Hold subcutaneous heparin or Lovenox in view of concern for bleeding. Access: Right subclavian central line placed by ER physician on 08/19/17 Prognosis appears poor. Consulted palliative care service to assist with deciding goals of therapy. Consult and transfer to hospitalist service for further medical management. Transfer out of ICU. Critical care signing off at this time, please reconsult if needed. Bill Echavarria MD Aug 22, 2017 10:21
--- NOTE | 2017-08-22 17:15 | HHI.HCPN ---
Reason for visit a. To assist with evaluation and management of symptoms including: debility , encephalopathy b. To assist medical decision maker(s) with: better understanding of current medical conditions; weighing benefits/burdens of medical treatment options; making medical treatment decisions. . Subjective/Interval History Mr. Mccormack is a 57 year old male who was transferred from [facility] to [facility] on 08/19/17 for evaluation of altered mental status. Patient has a known history of ES liver disease, cirrhosis, hepatic encephalopathy, EtOH abuse, and esophageal varices. Patient reportedly quit drinking in 05/2017. Per EMS report the patient had become increasingly lethargic and nonverbal. Follow-up visit for symptom management and clarification of medical treatment goals. Patient seen and examined in the [facility], room 1325. Patient is in bed, awake, oriented to self only and confused. Patient was able to tell examiner his wifes` full name. Patient endorsing abdominal pain. Patient passed swallow evaluation today and has been started on a heart healthy diet. No lab work today. Patient was weaned off Levophed infusion yesterday. SBP in the low 90s and low 100s, maintaining map greater than 70. Patient is currently on room air with O2 saturation in the mid to high 90s. I attempted to contact patient's via telephone with no success. . Family/friend interactions No family members at bedside. Telephone call to patient's with no success of reaching her. . Advance Directives Advance Directive Specifics Health Care Surrogate(s): Healthcare proxy-Natalie Robert, : [phone] . Documented care wishes: reports that she is power of prosecuting attorney and healthcare surrogate, but documentation has yet to be provided. . . Objective Vital Signs Date Time Temp Pulse Resp B/P (MAP) Pulse Ox O2 Delivery O2 Flow Rate FiO2 08/22/17 12:26 96 08/22/17 08:00 98.5 82 23 91/60 (70) 98 08/22/17 07:00 82 08/22/17 07:00 100 Nasal Cannula 2.00 08/22/17 04:00 98.2 82 23 92/59 (70) 99 08/22/17 00:00 98.1 80 20 102/61 (75) 100 08/21/17 23:00 80 08/21/17 21:04 100 Nasal Cannula 1.50 08/21/17 20:00 98.1 90 20 91/59 (70) 100 08/21/17 19:00 99 Nasal Cannula 2.00 Intake & Output 08/22/17 08/22/17 07:00 19:00 Intake Total 3326 ml Output Total 1150 ml Balance 2176 ml Intake Oral 300 ml IV Total 3026 ml Output Urine Total 1150 ml # Bowel Movements 0 Physical Exam CONSTITUTIONAL/GENERAL: This is an adequately nourished patient, in no apparent distress. TUBES/LINES/DRAINS: PIV, Salomon catheter, four-point soft restraints SKIN: Jaundice. Skin temperature appropriate. Not diaphoretic. HEAD: Atraumatic. Normocephalic. EYES: Pupils equal and round and reactive. Extraocular motions intact. + scleral icterus. No injection or drainage. Fundi not examined. ENT: Hearing grossly normal. Nose without bleeding or purulent drainage. NECK: Trachea midline. Supple, nontender. No palpable thyroid enlargement or nodularity. CARDIOVASCULAR: Regular rate and rhythm without murmurs, gallops, or rubs. No JVD. Peripheral pulses symmetric. RESPIRATORY/CHEST: Symmetric, unlabored respirations. Breath sounds diminished in bases bilaterally. No wheezes, rales, or rhonchi. GASTROINTESTINAL: Abdomen soft, non-tender, nondistended. No guarding. Bowel sounds present. GENITOURINARY: Without palpable bladder distension. Salomon catheter in place.. NEUROLOGICAL: Awake, alert, oriented to self with some confusion. Speech clear. Follows some simple commands but not consistently. PSYCHIATRIC: No obvious anxiety/depression. No apparent hallucinations or other psychotic thought process. . Diagnostic Tests Laboratory Laboratory Tests Test 08/19/17 20:05 08/20/17 02:15 08/20/17 06:10 08/20/17 12:45 Lactic Acid Level 1.3 mmol/L (0.4-2.0) 2.1 mmol/L (0.4-2.0) Total Creatine Kinase 42 U/L (39-308) 59 U/L (39-308) Troponin I LESS THAN 0.02 NG/ML LESS THAN 0.02 NG/ML B-Type Natriuretic Peptide 59 PG/ML (0-100) Blood Urea Nitrogen 9 MG/DL (7-18) 10 MG/DL (7-18) Creatinine 0.80 MG/DL (0.60-1.30) 0.83 MG/DL (0.60-1.30) Random Glucose 125 MG/DL (74-106) 121 MG/DL (74-106) Total Protein 5.0 GM/DL (6.4-8.2) 4.9 GM/DL (6.4-8.2) Albumin 2.1 GM/DL (3.4-5.0) 2.1 GM/DL (3.4-5.0) Calcium Level 7.7 MG/DL (8.5-10.1) 7.8 MG/DL (8.5-10.1) Magnesium Level 1.5 MG/DL (1.5-2.5) 1.4 MG/DL (1.5-2.5) Alkaline Phosphatase 127 U/L (45-117) 128 U/L (45-117) Aspartate Amino Transf (AST/SGOT) 35 U/L (15-37) 37 U/L (15-37) Alanine Aminotransferase (ALT/SGPT) 23 U/L (12-78) 22 U/L (12-78) Total Bilirubin 7.1 MG/DL (0.2-1.0) 7.1 MG/DL (0.2-1.0) Sodium Level 137 MEQ/L (136-145) 137 MEQ/L (136-145) Potassium Level 3.8 MEQ/L (3.5-5.1) 3.9 MEQ/L (3.5-5.1) Chloride Level 103 MEQ/L (98-107) 104 MEQ/L (98-107) Carbon Dioxide Level 27.4 MEQ/L (21.0-32.0) 24.1 MEQ/L (21.0-32.0) Anion Gap 7 MEQ/L (5-15) 9 MEQ/L (5-15) Estimat Glomerular Filtration Rate 100 ML/MIN (>89) 96 ML/MIN (>89) White Blood Count 8.6 TH/MM3 (4.0-11.0) Red Blood Count 2.92 MIL/MM3 (4.50-5.90) Hemoglobin 10.2 GM/DL (13.0-17.0) Hematocrit 29.4 % (39.0-51.0) Mean Corpuscular Volume 100.9 FL (80.0-100.0) Mean Corpuscular Hemoglobin 35.1 PG (27.0-34.0) Mean Corpuscular Hemoglobin Concent 34.8 % (32.0-36.0) Red Cell Distribution Width 18.2 % (11.6-17.2) Platelet Count 117 TH/MM3 (150-450) Mean Platelet Volume 6.3 FL (7.0-11.0) Neutrophils (%) (Auto) 58.0 % (16.0-70.0) Lymphocytes (%) (Auto) 21.7 % (9.0-44.0) Monocytes (%) (Auto) 12.4 % (0.0-8.0) Eosinophils (%) (Auto) 7.2 % (0.0-4.0) Basophils (%) (Auto) 0.7 % (0.0-2.0) Neutrophils # (Auto) 5.0 TH/MM3 (1.8-7.7) Lymphocytes # (Auto) 1.9 TH/MM3 (1.0-4.8) Monocytes # (Auto) 1.1 TH/MM3 (0-0.9) Eosinophils # (Auto) 0.6 TH/MM3 (0-0.4) Basophils # (Auto) 0.1 TH/MM3 (0-0.2) CBC Comment AUTO DIFF Differential Comment AUTO DIFF CONFIRMED Spherocytes OCC (NORMAL) Ovalocytes 1+ (NORMAL) Acanthocytes 1+ (NORMAL) Keratocytes OCC (NORMAL) Prothrombin Time 17.1 SEC (9.8-11.6) Prothromb Time International Ratio 1.7 RATIO Activated Partial Thromboplast Time 46.3 SEC (24.3-30.1) Phosphorus Level 2.2 MG/DL (2.5-4.9) Body Fluid Amylase Source PLEURAL Body Fluid Amylase 43 U/L Pleural Fluid pH 8.5 Pleural Fluid WBC 1126 /MM3 (0-10) Pleural Fluid RBC 04897 /MM3 (0-0) Pleural Fluid Neutrophils 4 % Pleural Fluid Lymphocytes 7 % Pleural Fluid Eosinophils 85 % Pleural Fluid Basophils 1 % Pleural Fluid Histiocytes 3 % Pleural Fluid Total Protein 2.2 GM/DL Pleural Fluid LDH 321 U/L Pleural Fluid Glucose 115 MG/DL Test 08/21/17 00:30 08/21/17 04:00 White Blood Count 6.7 TH/MM3 (4.0-11.0) 6.1 TH/MM3 (4.0-11.0) Red Blood Count 2.38 MIL/MM3 (4.50-5.90) 2.38 MIL/MM3 (4.50-5.90) Hemoglobin 8.5 GM/DL (13.0-17.0) 8.5 GM/DL (13.0-17.0) Hematocrit 24.1 % (39.0-51.0) 23.9 % (39.0-51.0) Mean Corpuscular Volume 101.2 FL (80.0-100.0) 100.4 FL (80.0-100.0) Mean Corpuscular Hemoglobin 35.6 PG (27.0-34.0) 35.8 PG (27.0-34.0) Mean Corpuscular Hemoglobin Concent 35.2 % (32.0-36.0) 35.6 % (32.0-36.0) Red Cell Distribution Width 18.6 % (11.6-17.2) 18.5 % (11.6-17.2) Platelet Count 88 TH/MM3 (150-450) 82 TH/MM3 (150-450) Mean Platelet Volume 6.1 FL (7.0-11.0) 6.2 FL (7.0-11.0) Neutrophils (%) (Auto) 48.6 % (16.0-70.0) 46.1 % (16.0-70.0) Lymphocytes (%) (Auto) 27.6 % (9.0-44.0) 27.3 % (9.0-44.0) Monocytes (%) (Auto) 15.1 % (0.0-8.0) 17.3 % (0.0-8.0) Eosinophils (%) (Auto) 8.3 % (0.0-4.0) 8.9 % (0.0-4.0) Basophils (%) (Auto) 0.4 % (0.0-2.0) 0.4 % (0.0-2.0) Neutrophils # (Auto) 3.3 TH/MM3 (1.8-7.7) 2.8 TH/MM3 (1.8-7.7) Lymphocytes # (Auto) 1.8 TH/MM3 (1.0-4.8) 1.7 TH/MM3 (1.0-4.8) Monocytes # (Auto) 1.0 TH/MM3 (0-0.9) 1.1 TH/MM3 (0-0.9) Eosinophils # (Auto) 0.6 TH/MM3 (0-0.4) 0.5 TH/MM3 (0-0.4) Basophils # (Auto) 0.0 TH/MM3 (0-0.2) 0.0 TH/MM3 (0-0.2) CBC Comment AUTO DIFF AUTO DIFF Differential Total Cells Counted 100 Neutrophils % (Manual) 51 % (16-70) Band Neutrophils % 1 % (0-6) Lymphocytes % 24 % (9-44) Monocytes % 15 % (0-8) Eosinophils % 8 % (0-4) Neutrophils # (Manual) 3.6 TH/MM3 (1.8-7.7) Myelocytes 1 % (0-0) Differential Comment FINAL DIFF MANUAL AUTO DIFF CONFIRMED Platelet Estimate LOW (NORMAL) LOW (NORMAL) Platelet Morphology Comment NORMAL (NORMAL) NORMAL (NORMAL) Ovalocytes 1+ (NORMAL) 1+ (NORMAL) Acanthocytes 1+ (NORMAL) OCC (NORMAL) Target Cells 1+ (NORMAL) Keratocytes OCC (NORMAL) Blood Urea Nitrogen 6 MG/DL (7-18) Creatinine 0.78 MG/DL (0.60-1.30) Random Glucose 126 MG/DL (74-106) Total Protein 4.8 GM/DL (6.4-8.2) Albumin 2.8 GM/DL (3.4-5.0) Calcium Level 8.3 MG/DL (8.5-10.1) Alkaline Phosphatase 92 U/L (45-117) Aspartate Amino Transf (AST/SGOT) 31 U/L (15-37) Alanine Aminotransferase (ALT/SGPT) 18 U/L (12-78) Total Bilirubin 6.6 MG/DL (0.2-1.0) Direct Bilirubin 2.7 MG/DL (0.0-0.2) Sodium Level 141 MEQ/L (136-145) Potassium Level 3.8 MEQ/L (3.5-5.1) Chloride Level 107 MEQ/L (98-107) Carbon Dioxide Level 23.8 MEQ/L (21.0-32.0) Anion Gap 10 MEQ/L (5-15) Estimat Glomerular Filtration Rate 103 ML/MIN (>89) Indirect Bilirubin 3.9 MG/DL (0.0-0.8) Result Diagram: 08/21/17 0400 08/21/17 0400 Microbiology Microbiology Date/Time Source Procedure Growth Status 08/20/17 12:45 Fluid Pleural Fluid Gram Stain - Final Resulted 08/20/17 12:45 Fluid Pleural Fluid Body Fluid Culture - Preliminary NO GROWTH IN 48 HOURS. Resulted Procedures 08/19/2017: Central venous line placement Assessment and Plan Disease Oriented Problem List: (1) Hypotension (2) Hepatic encephalopathy (3) Liver cirrhosis, alcoholic (4) Thrombocytopenia (5) Coagulopathy (6) Esophageal varices (7) Pleural effusion on right (8) Sleep apnea (9) Seizure disorder Symptom Scale: (1) Encephalopathy (2) Debility Pertinent Non-Medical Issues Psychosocial: Patient was born and raised in [facility]. He lives with his , Natalie, in [place]. They have been approximately 2 years. 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 He has 3 adult children with his first . His oldest son is who is 27 has Asperger's. He also has a 20 year old and a 15 year old. The 15 year old lives in [place] with his mother. Spiritual: Judaism eileen Legal: Per [place] statutes, in the absence of written advanced directive HCP decision-making falls to the patient's . Ethical issues impacting care: No known ethical issues impacting care at this time. . Important Contacts Natalie Robert, : [phone] . Prognosis Patient with ES Liver Disease. MELD 22 upon admission. Overall prognosis is poor. Palliative care is following to assist with symptom management and clarification of medical treatment goals. . . Code Status: Full Code Plan * FULL CODE * Decision-making: Patient does not have insight or judgement related to his medical conditions. Per [place] Statutes, health care proxy decision making falls to the patient's . * Per Last discussion with palliative care patient's indicated that she wanted aggressive goals and is hoping that patient gets better and goes back to continue rehabilitation at [facility]. Patient's also indicated that at this point they are not yet ready for hospice * Discussed with bedside nurse. * Symptom management: = Debility: Patient has been residing at [facility] for rehabilitation. DME includes, walker, BSC, nebulizer and CPAP. [facility] accept the patient back upon discharge. = Encephalopathy: CT head unremarkable. Ammonia level normal at 28. Avoiding sedatives and narcotics. If no improvement in neurologic status by tomorrow - consider MRI brain. Continue Lamotrigine. Suspect seizure vs hepatic encephalopathy with question of underlying infection. * Palliative care will continue to follow this patient throughout his hospitalization to establish trust, assist with symptom management and clarification of medical treatment goals. . Attestation To help prompt me to consider important information that might be impacting today's encounter and assessment, information from prior notes written by myself or my colleagues may have been "brought forward" into today's note. My signature on this note, however, is an attestation that I personally performed the exam, history, and/or decision-making noted today, and, unless otherwise indicated, the interactions with patient, family, and staff as well as the review of records all occurred today. I also attest that the listed assessment and stated plan reflect my best clinical judgment today based on the combination of historical information, prior notes, and today's exam/ interactions. When time spent is documented, it refers only to time spent today by the signer, or if indicated, combined time spent today by collaborating physician/nurse practitioner. Wen Bonner Aug 22, 2017 17:15
[2017-08-23] VITALS (9 sets, daily range): BP systolic 95–105; BP diastolic 55–64; PULSE 81–98; RESP 18–20; TEMP 97.7–98.9; O2SAT 94–100
[2017-08-23] MEDS: traMADol HCL 50 MG TAB PO PRN ×3 (00:23→21:26)
[2017-08-23] MEDS: D5-NS + KCL 20 MEQ INJ 1,000 ML IV SCH ×2 (00:24→12:00)
[2017-08-23] MEDS: PIPERACIL-TAZO 4.5 GM PREMIX 100 ML IV SCH ×4 (02:55→21:26)
[2017-08-23] MEDS: CHLORHEXIDINE GLUCONATE 2 % 1 PACK (2 CLOTHS) TOP SCH (04:00)
[2017-08-23] MEDS: RESP: ALBUTEROL 2.5 MG/IPRATROPIUM 0.5 MG NEB (SCH) INH ×4 (04:33→20:58)
[2017-08-23] MEDS: LACTULOSE SYRUP 20 GM/30 ML CUP DOBHOFF SCH ×2 (08:52→21:25)
[2017-08-23] MEDS: MIDODRINE 5 MG TAB PO SCH ×3 (08:53→18:47)
[2017-08-23] MEDS: SODIUM CHLORIDE 0.9% FLUSH 10 ML FLUSH IV FLUSH SCH ×2 (08:53→21:26)
[2017-08-23] MEDS: PANTOPRAZOLE SODIUM 40 MG VIAL IV PUSH SCH (08:53)
[2017-08-23] MEDS: DOCUSATE SODIUM 50 MG/SENNA 8.6 MG TAB PO SCH ×2 (08:53→21:25)
--- NOTE | 2017-08-23 13:22 | HHI.HCPN ---
Reason for visit a. To assist with evaluation and management of symptoms including: debility , encephalopathy b. To assist medical decision maker(s) with: better understanding of current medical conditions; weighing benefits/burdens of medical treatment options; making medical treatment decisions. . Subjective/Interval History Mr. Mccormack is a 57 year old male who was transferred from [facility] to [facility] on 08/19/17 for evaluation of altered mental status. Patient has a known history of ES liver disease, cirrhosis, hepatic encephalopathy, EtOH abuse, and esophageal varices. Patient reportedly quit drinking in 05/2017. Per EMS report the patient had become increasingly lethargic and nonverbal. Follow-up visit for symptom management and clarification of medical treatment goals. Patient was transferred to [facility] yesterday. Patient seen in his room, awake, alert, oriented to self, place with some confusion. Patient with pain remains in 4 point soft restraints. Patient explained that he has end-stage liver disease and he was told that he should not be living by now. Patient stated that despite his poor prognosis, he is still alive. Patient stated that his is his health care surrogate (HCS) and his daughter Rosy. 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 He went ahead and said, "I think i`m not very confused now and if they can continue to give me my lactulose, i`ll be fine".Patient concerned that his is not aware of his whereabouts at this time. Patient denying pain. No lab work today. Vital signs stable. Patient's Natalie Robert called during the visit and spoke to patient. Updated her on patient`s current medical status. Discussed goals of care and at this point goals remain aggressive. Patient's is hoping that patient continues to clinically improve and gets discharged back to the SNF for rehabilitation. Encouraged patient`s to bring copies of patient`s advance directives (POA and Designation of HCS form) .Obtained a reachable contact number for ([phone]). Case management following-assisting with placement. . Family/friend interactions Phone conversation with patient's . . Advance Directives Advance Directive Specifics Health Care Surrogate(s): Healthcare proxy-Natalie Robert, : [phone] . Documented care wishes: reports that she is power of real estate associate attorney and healthcare surrogate, but documentation has yet to be provided. . . Objective Vital Signs Date Time Temp Pulse Resp B/P (MAP) Pulse Ox O2 Delivery O2 Flow Rate FiO2 08/23/17 09:37 99 21 08/23/17 08:00 97.9 88 20 101/56 (71) 98 08/23/17 04:00 98.9 84 20 101/61 (74) 98 08/23/17 00:25 Room Air 08/23/17 00:00 97.9 91 18 95/63 (74) 95 08/22/17 22:30 98.1 92 19 95/54 (68) 100 08/22/17 20:39 97 21 08/22/17 20:00 98.1 89 25 92/59 (70) 100 08/22/17 19:00 100 Room Air 08/22/17 16:00 98.5 88 21 100/67 (78) 99 08/22/17 15:00 88 Physical Exam CONSTITUTIONAL/GENERAL: This is an adequately nourished patient, in no apparent distress. TUBES/LINES/DRAINS: PIV, Condom catheter, four-point soft restraints SKIN: Jaundice. Skin temperature appropriate. Not diaphoretic. HEAD: Atraumatic. Normocephalic. EYES: Pupils equal and round and reactive. Extraocular motions intact. + scleral icterus. No injection or drainage. Fundi not examined. ENT: Hearing grossly normal. Nose without bleeding or purulent drainage. NECK: Trachea midline. Supple, nontender. No palpable thyroid enlargement or nodularity. CARDIOVASCULAR: Regular rate and rhythm without murmurs, gallops, or rubs. No JVD. Peripheral pulses symmetric. RESPIRATORY/CHEST: Symmetric, unlabored respirations. Breath sounds diminished in bases bilaterally. No wheezes, rales, or rhonchi. GASTROINTESTINAL: Abdomen soft, non-tender, nondistended. No guarding. Bowel sounds present. GENITOURINARY: Without palpable bladder distension. Condom catheter. NEUROLOGICAL: Awake, alert, oriented to self, place with some confusion. Speech clear. Follows some simple commands. PSYCHIATRIC: No obvious anxiety/depression. No apparent hallucinations or other psychotic thought process. . Diagnostic Tests Laboratory Laboratory Tests Test 08/21/17 00:30 08/21/17 04:00 White Blood Count 6.7 TH/MM3 (4.0-11.0) 6.1 TH/MM3 (4.0-11.0) Red Blood Count 2.38 MIL/MM3 (4.50-5.90) 2.38 MIL/MM3 (4.50-5.90) Hemoglobin 8.5 GM/DL (13.0-17.0) 8.5 GM/DL (13.0-17.0) Hematocrit 24.1 % (39.0-51.0) 23.9 % (39.0-51.0) Mean Corpuscular Volume 101.2 FL (80.0-100.0) 100.4 FL (80.0-100.0) Mean Corpuscular Hemoglobin 35.6 PG (27.0-34.0) 35.8 PG (27.0-34.0) Mean Corpuscular Hemoglobin Concent 35.2 % (32.0-36.0) 35.6 % (32.0-36.0) Red Cell Distribution Width 18.6 % (11.6-17.2) 18.5 % (11.6-17.2) Platelet Count 88 TH/MM3 (150-450) 82 TH/MM3 (150-450) Mean Platelet Volume 6.1 FL (7.0-11.0) 6.2 FL (7.0-11.0) Neutrophils (%) (Auto) 48.6 % (16.0-70.0) 46.1 % (16.0-70.0) Lymphocytes (%) (Auto) 27.6 % (9.0-44.0) 27.3 % (9.0-44.0) Monocytes (%) (Auto) 15.1 % (0.0-8.0) 17.3 % (0.0-8.0) Eosinophils (%) (Auto) 8.3 % (0.0-4.0) 8.9 % (0.0-4.0) Basophils (%) (Auto) 0.4 % (0.0-2.0) 0.4 % (0.0-2.0) Neutrophils # (Auto) 3.3 TH/MM3 (1.8-7.7) 2.8 TH/MM3 (1.8-7.7) Lymphocytes # (Auto) 1.8 TH/MM3 (1.0-4.8) 1.7 TH/MM3 (1.0-4.8) Monocytes # (Auto) 1.0 TH/MM3 (0-0.9) 1.1 TH/MM3 (0-0.9) Eosinophils # (Auto) 0.6 TH/MM3 (0-0.4) 0.5 TH/MM3 (0-0.4) Basophils # (Auto) 0.0 TH/MM3 (0-0.2) 0.0 TH/MM3 (0-0.2) CBC Comment AUTO DIFF AUTO DIFF Differential Total Cells Counted 100 Neutrophils % (Manual) 51 % (16-70) Band Neutrophils % 1 % (0-6) Lymphocytes % 24 % (9-44) Monocytes % 15 % (0-8) Eosinophils % 8 % (0-4) Neutrophils # (Manual) 3.6 TH/MM3 (1.8-7.7) Myelocytes 1 % (0-0) Differential Comment FINAL DIFF MANUAL AUTO DIFF CONFIRMED Platelet Estimate LOW (NORMAL) LOW (NORMAL) Platelet Morphology Comment NORMAL (NORMAL) NORMAL (NORMAL) Ovalocytes 1+ (NORMAL) 1+ (NORMAL) Acanthocytes 1+ (NORMAL) OCC (NORMAL) Target Cells 1+ (NORMAL) Keratocytes OCC (NORMAL) Blood Urea Nitrogen 6 MG/DL (7-18) Creatinine 0.78 MG/DL (0.60-1.30) Random Glucose 126 MG/DL (74-106) Total Protein 4.8 GM/DL (6.4-8.2) Albumin 2.8 GM/DL (3.4-5.0) Calcium Level 8.3 MG/DL (8.5-10.1) Alkaline Phosphatase 92 U/L (45-117) Aspartate Amino Transf (AST/SGOT) 31 U/L (15-37) Alanine Aminotransferase (ALT/SGPT) 18 U/L (12-78) Total Bilirubin 6.6 MG/DL (0.2-1.0) Direct Bilirubin 2.7 MG/DL (0.0-0.2) Sodium Level 141 MEQ/L (136-145) Potassium Level 3.8 MEQ/L (3.5-5.1) Chloride Level 107 MEQ/L (98-107) Carbon Dioxide Level 23.8 MEQ/L (21.0-32.0) Anion Gap 10 MEQ/L (5-15) Estimat Glomerular Filtration Rate 103 ML/MIN (>89) Indirect Bilirubin 3.9 MG/DL (0.0-0.8) Result Diagram: 08/21/17 0400 08/21/17 0400 Procedures 08/19/2017: Central venous line placement Assessment and Plan Disease Oriented Problem List: (1) Hypotension (2) Hepatic encephalopathy (3) Liver cirrhosis, alcoholic (4) Thrombocytopenia (5) Coagulopathy (6) Esophageal varices (7) Pleural effusion on right (8) Sleep apnea (9) Seizure disorder Symptom Scale: (1) Encephalopathy (2) Debility Pertinent Non-Medical Issues Psychosocial: Patient was born and raised in [facility]. He lives with his , Natalie, in [place]. They have been approximately 2 years. Patient is a retired [employer]. He has 3 adult children with his first . His oldest son is who is 27 has Asperger's. He also has a 20 year old and a 15 year old. The 15 year old lives in [place] with his mother. Spiritual: Mormonism eileen Legal: Per [place] statutes, in the absence of written advanced directive HCP decision-making falls to the patient's . Ethical issues impacting care: No known ethical issues impacting care at this time. . Important Contacts Natalie Robert, : [phone] Daughter- Rosy- [phone] . Prognosis Patient with ES Liver Disease. MELD 22 upon admission. Overall prognosis is poor. Palliative care is following to assist with symptom management and clarification of medical treatment goals. . . Code Status: Full Code Plan * FULL CODE * Decision-making: Patient does not have insight or judgement related to his medical conditions. Per [place] Statutes, health care proxy decision making falls to the patient's . * Per discussion with patient's , she wants aggressive goals and is hoping that patient gets better and goes back to continue rehabilitation. Patient's also indicated that at this point they are not yet ready for hospice. * Symptom management: = Debility: Patient has been residing at [facility] for rehabilitation. DME includes, walker, BSC, nebulizer and CPAP. [facility] will accept the patient back upon discharge. = Encephalopathy: CT head unremarkable. Ammonia level normal at 28. Avoiding sedatives and narcotics. If no improvement in neurologic status by tomorrow - consider MRI brain. Continue Lamotrigine. Suspect seizure vs hepatic encephalopathy with question of underlying infection. * Palliative care will continue to follow this patient throughout his hospitalization to establish trust, assist with symptom management and clarification of medical treatment goals. . Attestation To help prompt me to consider important information that might be impacting today's encounter and assessment, information from prior notes written by myself or my colleagues may have been "brought forward" into today's note. My signature on this note, however, is an attestation that I personally performed the exam, history, and/or decision-making noted today, and, unless otherwise indicated, the interactions with patient, family, and staff as well as the review of records all occurred today. I also attest that the listed assessment and stated plan reflect my best clinical judgment today based on the combination of historical information, prior notes, and today's exam/ interactions. When time spent is documented, it refers only to time spent today by the signer, or if indicated, combined time spent today by collaborating physician/nurse practitioner. Wen Bonner Aug 23, 2017 13:22
--- NOTE | 2017-08-23 17:37 | HHI.PR ---
Subjective Remarks Patient has medical history significant for end-stage renal disease, end stage cirrhosis, hepatic encephalopathy, alcoholism, esophageal varices. Patient presented to the hospital 08/19/17 from [facility] for evaluation of AMS. Patient noted to be more lethargic and nonverbal. Patient was admitted to ICU. Patient was initially placed on Levophed for BP support which was weaned off. Patient now on midodrine TID. Patient was taken off of spironlactone and lasix as his BP can not tolerate it. On 08/21/17 Patient underwent right sided thoracentesis by IR yesterday with drainage of 200 cc of pleural fluid which appears transudative.Palliative care is also following this patient. Patient and his want continued aggressive care despite his poor prognosis and end stage cirrhosis. We have been consulted to assume care. Patient reports feeling, "good." offers no complaints. Objective Vitals Vital Signs Date Time Temp Pulse Resp B/P (MAP) Pulse Ox O2 Delivery O2 Flow Rate FiO2 08/23/17 16:42 96 Nasal Cannula 2.00 08/23/17 16:00 Room Air 08/23/17 12:00 Room Air 08/23/17 09:37 99 21 08/23/17 08:00 97.9 88 20 101/56 (71) 98 08/23/17 08:00 Room Air 08/23/17 04:00 98.9 84 20 101/61 (74) 98 08/23/17 00:25 Room Air 08/23/17 00:00 97.9 91 18 95/63 (74) 95 08/22/17 22:30 98.1 92 19 95/54 (68) 100 08/22/17 20:39 97 21 08/22/17 20:00 98.1 89 25 92/59 (70) 100 08/22/17 19:00 100 Room Air Result Diagram: 08/21/17 0400 08/21/17 0400 Other Results Laboratory Tests Test 08/21/17 00:30 08/21/17 04:00 White Blood Count 6.7 TH/MM3 6.1 TH/MM3 Red Blood Count 2.38 MIL/MM3 2.38 MIL/MM3 Hemoglobin 8.5 GM/DL 8.5 GM/DL Hematocrit 24.1 % 23.9 % Mean Corpuscular Volume 101.2 FL 100.4 FL Mean Corpuscular Hemoglobin 35.6 PG 35.8 PG Mean Corpuscular Hemoglobin Concent 35.2 % 35.6 % Red Cell Distribution Width 18.6 % 18.5 % Platelet Count 88 TH/MM3 82 TH/MM3 Mean Platelet Volume 6.1 FL 6.2 FL Neutrophils (%) (Auto) 48.6 % 46.1 % Lymphocytes (%) (Auto) 27.6 % 27.3 % Monocytes (%) (Auto) 15.1 % 17.3 % Eosinophils (%) (Auto) 8.3 % 8.9 % Basophils (%) (Auto) 0.4 % 0.4 % Neutrophils # (Auto) 3.3 TH/MM3 2.8 TH/MM3 Lymphocytes # (Auto) 1.8 TH/MM3 1.7 TH/MM3 Monocytes # (Auto) 1.0 TH/MM3 1.1 TH/MM3 Eosinophils # (Auto) 0.6 TH/MM3 0.5 TH/MM3 Basophils # (Auto) 0.0 TH/MM3 0.0 TH/MM3 CBC Comment AUTO DIFF AUTO DIFF Differential Total Cells Counted 100 Neutrophils % (Manual) 51 % Band Neutrophils % 1 % Lymphocytes % 24 % Monocytes % 15 % Eosinophils % 8 % Neutrophils # (Manual) 3.6 TH/MM3 Myelocytes 1 % Differential Comment FINAL DIFF MANUAL AUTO DIFF CONFIRMED Platelet Estimate LOW LOW Platelet Morphology Comment NORMAL NORMAL Ovalocytes 1+ 1+ Acanthocytes 1+ OCC Target Cells 1+ Keratocytes OCC Blood Urea Nitrogen 6 MG/DL Creatinine 0.78 MG/DL Random Glucose 126 MG/DL Total Protein 4.8 GM/DL Albumin 2.8 GM/DL Calcium Level 8.3 MG/DL Alkaline Phosphatase 92 U/L Aspartate Amino Transf (AST/SGOT) 31 U/L Alanine Aminotransferase (ALT/SGPT) 18 U/L Total Bilirubin 6.6 MG/DL Direct Bilirubin 2.7 MG/DL Sodium Level 141 MEQ/L Potassium Level 3.8 MEQ/L Chloride Level 107 MEQ/L Carbon Dioxide Level 23.8 MEQ/L Anion Gap 10 MEQ/L Estimat Glomerular Filtration Rate 103 ML/MIN Indirect Bilirubin 3.9 MG/DL Imaging Last Impressions Chest X-Ray 08/19/17 1311 Signed Impressions: Service Date/Time: Saturday, August 19, 2017 13:24 - CONCLUSION: 1. Right basilar airspace disease and small right effusion. Overall there is improvement compared with July 11 comparison. Heart size normal. Left lung relatively clear. Sandeep Morgan MD Head CT 08/19/17 0000 Signed Impressions: Service Date/Time: Saturday, August 19, 2017 14:13 - CONCLUSION: 1. No acute intracranial abnormalities. No significant change from July 05. Sandeep Morgan MD Abdomen/Pelvis CT 08/19/17 0000 Signed Impressions: Service Date/Time: Saturday, August 19, 2017 15:39 - CONCLUSION: 1. Liver cirrhosis with severe varices. Trace free fluid. 2. Bowel containing ventral hernia without bowel obstruction. 3. Numerous gallstones. 4. Moderate right effusion with compressive atelectasis. 5. Gynecomastia. 6. Mild compression fracture through superior plate of T12 with mild retropulsion. Sandeep Morgan MD Objective Remarks GENERAL: Well-developed, well-nourished male. SKIN: Warm and dry. Jaundice EYES: Positive scleral icterus. No injection or drainage. CARDIOVASCULAR: Regular rate and rhythm. RESPIRATORY: No accessory muscle use. Diminished in bases. No wheezing or crackles GASTROINTESTINAL: Abdomen soft, non-tender, nondistended. Positive bowel sounds , no rebound, no guarding MUSCULOSKELETAL: Extremities without clubbing, cyanosis, or edema. No obvious deformities. NEUROLOGICAL: Awake, alert, following commands appropriately however confused at times. Sensory and Motor grossly within normal limits. A/P Problem List: (1) Hepatic encephalopathy ICD Codes: K72.90 - Hepatic failure, unspecified without coma Status: Chronic Plan: AMS/Hepatic Encephalopathy Alcoholic cirrhosis of liver with ascites and pleural effusion Continue lactulose 30 mL twice a day. Hold nadolol, Lasix and spironolactone in view of hypotension Head CT unremarkable. EEG completed. Suspect seizure vs hepatic encephalopathy with question of underlying infection. Per patient's patient has had a Pleurx catheter however has pulled out twice before for recurrent right pleural effusion. Status post US guided right thoracentesis with IR on 08/20 with drainage of 200 cc of pleural fluid. Passed swallow eval, continue soft mechanical diet. Lactulose twice a day. Follow LFTs. Appears to have advanced liver cirrhosis. GI consult requested and has signed off Empiric antibiotic coverage started in ICU with IV Zosyn, vancomycin IV single dose. No evidence of infection, afebrile, no leucocytosis, neg UA. Blood cultures no growth in 4 days plan to DC abx 08/24 if patient remains stable Access: Right subclavian central line placed by ER physician on 08/19/17, will need to be DC'd prior to DC Prognosis appears poor. Palliative care is also following this patient. Patient and his want continued aggressive care despite his poor prognosis and end stage cirrhosis. Prophylaxis: PPI/SCDs. Hold subcutaneous heparin or Lovenox in view of concern for bleeding. (2) Alcoholic cirrhosis of liver with ascites ICD Codes: K70.31 - Alcoholic cirrhosis of liver with ascites Status: Chronic Plan: see above (3) Seizure disorder ICD Codes: G40.909 - Epilepsy, unspecified, not intractable, without status epilepticus Status: Chronic Plan: Continue home Lamotrigine 200 mg QHS (4) Hypotension ICD Codes: I95.9 - Hypotension, unspecified Status: Acute Plan: Off Levophed. Hold nadolol and spironolactone in view of hypotension. continue Midodrine 5 mg by mouth every 8 hourly Assessment and Plan Patient examined. Assessment and plan formulated with Bernice Spangler PA-C. I agree with the above. Problem Qualifiers (1) Hypotension: Qualified Codes: I95.9 - Hypotension, unspecified Bernice Spangler Aug 23, 2017 17:37 Ryan Wright DO Aug 24, 2017 15:09
--- NOTE | 2017-08-23 19:22 | RADRPT ---
EXAM DATE/TIME: 08/23/2017 18:52 [facility] COMPARISON: CHEST EXPIRATION ONLY, August 20, 2017, 12:54. INDICATIONS : Short of breath MEDICAL HISTORY : Hiatal hernia. Cirrhosis. esophageal varices, portal hypertension SURGICAL HISTORY : hiatal hernia repair ENCOUNTER: Subsequent ACUITY: 4 - 6 days PAIN SCORE: 0/10 LOCATION: chest FINDINGS: No perceptible pneumothorax. Right base consolidation and small effusion slightly worse in the interi m. Left lung remains clear. Right subclavian central venous catheter with tip in the right atrium again noted. CONCLUSION: 1. Worsening right base consolidation and small pleural effusion. 2. No pneumothorax seen. 3. Left lung remains clear. Farhan Mccrary MD on August 23, 2017 at 19:19 Board Certified Radiologist. This report was verified electronically.
[2017-08-24] VITALS (8 sets, daily range): BP systolic 96–113; BP diastolic 55–63; PULSE 82–101; RESP 16–24; TEMP 97.4–98.2; O2SAT 97–100
[2017-08-24] MEDS: PIPERACIL-TAZO 4.5 GM PREMIX 100 ML IV SCH ×2 (03:36→08:47)
[2017-08-24] MEDS: CHLORHEXIDINE GLUCONATE 2 % 1 PACK (2 CLOTHS) TOP SCH (04:00)
--- NOTE | 2017-08-24 08:33 | RADRPT ---
EXAM DATE/TIME: 08/24/2017 08:21 [facility] COMPARISON: CT ABDOMEN & PELVIS W CONTRAST, August 19, 2017, 15:39. CHEST SINGLE AP, August 23, 2017, 18:52. CHES T EXPIRATION ONLY, August 20, 2017, 12:54. CHEST SINGLE AP, August 19, 2017, 17:08. US GUIDED THORACE NTESIS RIGHT, August 20, 2017, 11:38. INDICATIONS : Short of breath. MEDICAL HISTORY : Hiatal hernia. Cirrhosis. esophageal varices, portal hypertension SURGICAL HISTORY : Hiatal hernia repair ENCOUNTER: Subsequent ACUITY: 4 - 6 days PAIN SCORE: 0/10 LOCATION: Bilateral chest FINDINGS: There is a small right pleural effusion. There is elevation of the right hemidiaphragm. Right basilar atelectasis is noted. Right subclavian central line has its tip at junction superior vena cava and r ight atrium. The heart is enlarged. Left lung is clear. CONCLUSION: 1. Small right pleural effusion. 2. Right basilar atelectasis. 3. Elevation of the right hemidiaphragm. 4. Cardiomegaly. Usman Umana MD on August 24, 2017 at 8:29 Board Certified Radiologist. This report was verified electronically.
[2017-08-24] MEDS: LACTULOSE SYRUP 20 GM/30 ML CUP DOBHOFF SCH ×2 (08:46→21:40)
[2017-08-24] MEDS: MIDODRINE 5 MG TAB PO SCH ×3 (08:47→18:03)
[2017-08-24] MEDS: DOCUSATE SODIUM 50 MG/SENNA 8.6 MG TAB PO SCH ×2 (08:47→21:00)
[2017-08-24] MEDS: traMADol HCL 50 MG TAB PO PRN (08:47)
[2017-08-24] MEDS: PANTOPRAZOLE SODIUM 40 MG VIAL IV PUSH SCH (08:47)
[2017-08-24] MEDS: SODIUM CHLORIDE 0.9% FLUSH 10 ML FLUSH IV FLUSH SCH ×2 (08:47→21:40)
--- NOTE | 2017-08-24 15:16 | HHI.PR ---
Subjective Remarks No new complaints. Objective Vitals Vital Signs Date Time Temp Pulse Resp B/P (MAP) Pulse Ox O2 Delivery O2 Flow Rate FiO2 08/24/17 12:00 97.8 98 20 96/55 (69) 98 08/24/17 12:00 Room Air 08/24/17 08:00 Room Air 08/24/17 08:00 98.2 101 20 98/55 (69) 97 08/24/17 04:25 Room Air 08/24/17 04:25 98.2 82 20 98/58 (71) 98 08/24/17 00:08 97.4 83 24 97/63 (74) 100 08/24/17 00:08 Nasal Cannula 2.00 08/23/17 21:00 94 Nasal Cannula 3.00 08/23/17 20:00 98.7 81 20 95/57 (70) 100 08/23/17 20:00 Nasal Cannula 3.00 08/23/17 16:42 96 Nasal Cannula 2.00 08/23/17 16:00 Room Air 08/23/17 16:00 98.1 98 20 105/55 (72) 100 Result Diagram: 08/21/17 0400 08/21/17 0400 Imaging Last Impressions Chest X-Ray 08/24/17 0600 Signed Impressions: Service Date/Time: Thursday, August 24, 2017 08:21 - CONCLUSION: 1. Small right pleural effusion. 2. Right basilar atelectasis. 3. Elevation of the right hemidiaphragm. 4. Cardiomegaly. Usman Umana MD Thoracentesis Ultrasound 08/20/17 0000 Signed Impressions: Service Date/Time: Sunday, August 20, 2017 11:38 - CONCLUSION: Uncomplicated ultrasound guided thoracentesis. Usman Umana MD Head CT 08/19/17 0000 Signed Impressions: Service Date/Time: Saturday, August 19, 2017 14:13 - CONCLUSION: 1. No acute intracranial abnormalities. No significant change from July 05. Sandeep Morgan MD Abdomen/Pelvis CT 08/19/17 0000 Signed Impressions: Service Date/Time: Saturday, August 19, 2017 15:39 - CONCLUSION: 1. Liver cirrhosis with severe varices. Trace free fluid. 2. Bowel containing ventral hernia without bowel obstruction. 3. Numerous gallstones. 4. Moderate right effusion with compressive atelectasis. 5. Gynecomastia. 6. Mild compression fracture through superior plate of T12 with mild retropulsion. Sandeep Morgan MD Abdomen X-Ray 08/19/17 0000 Signed Impressions: Service Date/Time: Saturday, August 19, 2017 21:58 - CONCLUSION: Dobbhoff catheter tip is at the GE junction. Daniel Sawyer MD Objective Remarks GENERAL: Well-developed, well-nourished male. SKIN: Warm and dry. Jaundice EYES: Positive scleral icterus. No injection or drainage. CARDIOVASCULAR: Regular rate and rhythm. RESPIRATORY: No accessory muscle use. Diminished in bases. No wheezing or crackles GASTROINTESTINAL: Abdomen soft, non-tender, nondistended. Positive bowel sounds , no rebound, no guarding MUSCULOSKELETAL: Extremities without clubbing, cyanosis, or edema. No obvious deformities. NEUROLOGICAL: Awake, alert, following commands appropriately however confused at times. Sensory and Motor grossly within normal limits. A/P Problem List: (1) Hepatic encephalopathy ICD Codes: K72.90 - Hepatic failure, unspecified without coma Status: Chronic Plan: AMS/Hepatic Encephalopathy Alcoholic cirrhosis of liver with ascites and pleural effusion - Continue lactulose 30 mL twice a day. Hold nadolol, Lasix and spironolactone in view of hypotension Head CT unremarkable. EEG completed. Suspect seizure vs hepatic encephalopathy with question of underlying infection. Per patient's patient has had a Pleurx catheter however has pulled out twice before for recurrent right pleural effusion. Status post US guided right thoracentesis with IR on 08/20 with drainage of 200 cc of pleural fluid. Passed swallow eval, continue soft mechanical diet. Lactulose twice a day. Follow LFTs. Appears to have advanced liver cirrhosis. GI consult requested and has signed off - Empiric antibiotic coverage started in ICU with IV Zosyn, vancomycin IV single dose. No evidence of infection, afebrile, no leucocytosis, neg UA. Blood cultures no growth in 4 days plan to DC abx 08/24 if patient remains stable - Access: Right subclavian central line placed by ER physician on 08/19/17, will need to be DC'd prior to DC - Prognosis appears poor. Palliative care is also following this patient. Patient and his want continued aggressive care despite his poor prognosis and end stage cirrhosis. - Prophylaxis: PPI/SCDs. Hold subcutaneous heparin or Lovenox in view of concern for bleeding. 08/24/17 - Pt continues to appear stable - blood pressure remains boarderline despite use of TID midodrine - cannot resume spironolactone at this time d/t BP - anticipate d/c to SNF 08/25 - Hospice would be appropriate, but pt does NOT want hospice at this time. (2) Alcoholic cirrhosis of liver with ascites ICD Codes: K70.31 - Alcoholic cirrhosis of liver with ascites Status: Chronic Plan: see above (3) Seizure disorder ICD Codes: G40.909 - Epilepsy, unspecified, not intractable, without status epilepticus Status: Chronic Plan: Continue home Lamotrigine 200 mg QHS (4) Hypotension ICD Codes: I95.9 - Hypotension, unspecified Status: Acute Plan: Off Levophed. Hold nadolol and spironolactone in view of hypotension. continue Midodrine 5 mg by mouth every 8 hourly Problem Qualifiers (1) Hypotension: Qualified Codes: I95.9 - Hypotension, unspecified Ryan Wright DO Aug 24, 2017 15:16
--- NOTE | 2017-08-24 15:50 | HHI.HCPN ---
Reason for visit a. To assist with evaluation and management of symptoms including: debility , encephalopathy b. To assist medical decision maker(s) with: better understanding of current medical conditions; weighing benefits/burdens of medical treatment options; making medical treatment decisions. . Subjective/Interval History Mr. Mccormack is a 57 year old male who was transferred from [facility] to [facility] on 08/19/17 for evaluation of altered mental status. Patient has a known history of ES liver disease, cirrhosis, hepatic encephalopathy, EtOH abuse, and esophageal varices. Patient reportedly quit drinking in 05/2017. Per EMS report the patient had become increasingly lethargic and nonverbal. Follow-up visit for symptom management. Patient seen and examined in his room on 4N. Patient is awake, alert and oriented to self, place and situation with some confusion. Patient denies pain. Patient has 4 point restraints off at this time. SBP remains in the mid to high 90s with a MAP maintained >69. Patient on Midodrine 5mg TID. No recent laboratory workup. Multiple attempts to reach patient`s via telephone- all provided contact information with no success, to update her on patient`s medical status. Case discussed with case management Paty Wilkins and Dr. Wright. Case management assisting with placement. . Family/friend interactions No family at bedside. Attempted to call patient`s with no success. . Advance Directives Advance Directive Specifics Health Care Surrogate(s): Healthcare proxy-Natalie Robert, : [phone] Daughter- Jelly Celestin - [phone] . Documented care wishes: reports that she is power of district attorney and healthcare surrogate, but documentation has yet to be provided. . . Objective Vital Signs Date Time Temp Pulse Resp B/P (MAP) Pulse Ox O2 Delivery O2 Flow Rate FiO2 08/24/17 12:00 97.8 98 20 96/55 (69) 98 08/24/17 12:00 Room Air 08/24/17 08:00 Room Air 08/24/17 08:00 98.2 101 20 98/55 (69) 97 08/24/17 04:25 Room Air 08/24/17 04:25 98.2 82 20 98/58 (71) 98 08/24/17 00:08 97.4 83 24 97/63 (74) 100 08/24/17 00:08 Nasal Cannula 2.00 08/23/17 21:00 94 Nasal Cannula 3.00 08/23/17 20:00 98.7 81 20 95/57 (70) 100 08/23/17 20:00 Nasal Cannula 3.00 08/23/17 16:42 96 Nasal Cannula 2.00 08/23/17 16:00 Room Air 08/23/17 16:00 98.1 98 20 105/55 (72) 100 Intake & Output 08/24/17 08/24/17 07:00 19:00 Intake Total 800 ml Output Total 750 ml Balance 50 ml Intake Oral 800 ml Output Urine Total 750 ml # Voids 1 # Bowel Movements 1 Physical Exam CONSTITUTIONAL/GENERAL: This is an adequately nourished patient, in no apparent distress. TUBES/LINES/DRAINS: PIV, Condom catheter, four-point soft restraints SKIN: Jaundice. Skin temperature appropriate. Not diaphoretic. HEAD: Atraumatic. Normocephalic. EYES: Pupils equal and round and reactive. Extraocular motions intact. + scleral icterus. No injection or drainage. Fundi not examined. ENT: Hearing grossly normal. Nose without bleeding or purulent drainage. NECK: Trachea midline. Supple, nontender. No palpable thyroid enlargement or nodularity. CARDIOVASCULAR: Regular rate and rhythm without murmurs, gallops, or rubs. No JVD. Peripheral pulses symmetric. RESPIRATORY/CHEST: Symmetric, unlabored respirations. Breath sounds diminished in bases bilaterally. No wheezes, rales, or rhonchi. GASTROINTESTINAL: Abdomen soft, non-tender, nondistended. No guarding. Bowel sounds present. GENITOURINARY: Without palpable bladder distension. Condom catheter. NEUROLOGICAL: Awake, alert, oriented to self, place, situation with some confusion. Speech clear. Follows some simple commands. PSYCHIATRIC: No obvious anxiety/depression. No apparent hallucinations or other psychotic thought process. . Diagnostic Tests Result Diagram: 08/21/1739908/21/17399 Procedures 08/19/2017: Central venous line placement Assessment and Plan Disease Oriented Problem List: (1) Hypotension (2) Hepatic encephalopathy (3) Liver cirrhosis, alcoholic (4) Thrombocytopenia (5) Coagulopathy (6) Esophageal varices (7) Pleural effusion on right (8) Sleep apnea (9) Seizure disorder Symptom Scale: (1) Encephalopathy (2) Debility Pertinent Non-Medical Issues Psychosocial: Patient was born and raised in [facility]. He lives with his , Natalie, in [place]. They have been approximately 2 years. 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 He has 3 adult children with his first . His oldest son is who is 27 has Asperger's. He also has a 20 year old and a 15 year old. The 15 year old lives in [place] with his mother. Spiritual: Pentecostal eileen Legal: Per [place] statutes, in the absence of written advanced directive HCP decision-making falls to the patient's . Ethical issues impacting care: No known ethical issues impacting care at this time. . Important Contacts Natalie Robert, : [phone] Daughter- Sabi- [phone] . Prognosis Patient with ES Liver Disease. MELD 22 upon admission. Overall prognosis is poor. Palliative care is following to assist with symptom management and clarification of medical treatment goals. . . Code Status: Full Code Plan * FULL CODE * Decision-making: Patient does not have insight or judgement related to his medical conditions. Per [place] Statutes, health care proxy decision making falls to the patient's . * Per discussion on 08/23/17 with patient's , she wants aggressive goals and is hoping that patient gets better and goes back to continue rehabilitation. Patient's also indicated that at this point they are not yet ready for hospice. * Symptom management: = Debility: Patient has been residing at [facility] for rehabilitation. DME includes, walker, BSC, nebulizer and CPAP. [facility] will not accept the patient back upon discharge. Case management assisting with placement. = Encephalopathy: CT head unremarkable. Ammonia level normal at 28. Avoiding sedatives and narcotics. If no improvement in neurologic status by tomorrow - consider MRI brain. Continue Lamotrigine. Suspect seizure vs hepatic encephalopathy with question of underlying infection. * Palliative care will continue to follow this patient throughout his hospitalization to establish trust, assist with symptom management and clarification of medical treatment goals. . Wen Bonner Aug 24, 2017 15:50
[2017-08-25] VITALS (7 sets, daily range): BP systolic 93–107; BP diastolic 50–63; PULSE 18–99; RESP 17–20; TEMP 97.5–98.6; O2SAT 98–100
[2017-08-25] MEDS: CHLORHEXIDINE GLUCONATE 2 % 1 PACK (2 CLOTHS) TOP SCH (04:00)
[2017-08-25] MEDS ORDERED: Lactulose Liq PO (08:27)
[2017-08-25] MEDS ORDERED: MIDO5TAB PO (08:27)
[2017-08-25] MEDS: PANTOPRAZOLE SODIUM 40 MG VIAL IV PUSH SCH (09:17)
[2017-08-25] MEDS: MIDODRINE 5 MG TAB PO SCH ×3 (09:18→17:43)
[2017-08-25] MEDS: DOCUSATE SODIUM 50 MG/SENNA 8.6 MG TAB PO SCH ×2 (09:18→20:45)
[2017-08-25] MEDS: SODIUM CHLORIDE 0.9% FLUSH 10 ML FLUSH IV FLUSH SCH ×2 (09:18→20:46)
[2017-08-25] MEDS: LACTULOSE SYRUP 20 GM/30 ML CUP DOBHOFF SCH ×2 (09:18→20:46)
[2017-08-25] MEDS ORDERED: TRAM50 PO (11:06)
--- NOTE | 2017-08-25 11:12 | HHI.DS ---
Discharge Summary Admission Date Aug 19, 2017 at 17:08 Discharge Date: Aug 26, 2017 Admitting Diagnosis AMS (1) Hepatic encephalopathy Diagnosis: Principal ICD Codes: K72.90 - Hepatic failure, unspecified without coma Status: Chronic (2) Alcoholic cirrhosis of liver with ascites Diagnosis: Principal ICD Codes: K70.31 - Alcoholic cirrhosis of liver with ascites Status: Chronic (3) Seizure disorder Diagnosis: Secondary ICD Codes: G40.909 - Epilepsy, unspecified, not intractable, without status epilepticus Status: Chronic (4) Hypotension Diagnosis: Secondary ICD Codes: I95.9 - Hypotension, unspecified Status: Acute Consultants Dr. Thomas, palliative care Dr. Ambrose, GI Dr. Echavarria, ICU Procedures US guided right thoracentesis with IR on 08/20 with drainage of 200 cc of pleural fluid. Brief History Mr. Mccormack is an unfortunate 56 y/o WM with end-stage liver disease due to alcoholic cirrhosis, portal HTN, hepatic encephalopathy, recurrent ascites, recurrent pleural effusion, thrombocytopenia, and BRENT who was sent to the ED from the [facility] for altered mental status. Patient is somewhat confused at the time of examination and unable to provide any reliable history so history was obtained primarily from discussion with the ED staff/physician and and from review of previous and outpatient records. Pt was previously admitted in June 2017 with AMS and recurrent pleural effusions related to his liver cirrhosis. At that time he was having issues with his chest tube which was replaced as his drain was nonfunctioning. Since that admission his CT has been removed. Pt has recurrent issues with AMS felt to be secondary to hepatic encephalopathy. His labs at admission noted Ammonia level was 26. His LFTs noted a slight elevation in his TBili to 8.1 when compared to previous labs in June when it was 6. Imaging studies performed in the ED included Head CT which was negative for any acute changes. CT Abd/pelvis with IV contrast noted liver cirrhosis with severe varices, trace free fluid, bowel containing ventral hernia without bowel obstruction, numerous gallstones, moderate right effusion with compressive atelectasis, and a mild compression fracture through superior plate of T12 with mild retropulsion. His WBC count is 8 and he has been afebrile. Pt has been on Lactulose 30mL QID. CBC/BMP: 08/21/17 0400 08/21/17 0400 Imaging Last Impressions Chest X-Ray 08/24/17 0600 Signed Impressions: Service Date/Time: Thursday, August 24, 2017 08:21 - CONCLUSION: 1. Small right pleural effusion. 2. Right basilar atelectasis. 3. Elevation of the right hemidiaphragm. 4. Cardiomegaly. Usman Umana MD Thoracentesis Ultrasound 08/20/17 0000 Signed Impressions: Service Date/Time: Sunday, August 20, 2017 11:38 - CONCLUSION: Uncomplicated ultrasound guided thoracentesis. Usman Umana MD Head CT 08/19/17 0000 Signed Impressions: Service Date/Time: Saturday, August 19, 2017 14:13 - CONCLUSION: 1. No acute intracranial abnormalities. No significant change from July 05. Sandeep Morgan MD Abdomen/Pelvis CT 08/19/17 0000 Signed Impressions: Service Date/Time: Saturday, August 19, 2017 15:39 - CONCLUSION: 1. Liver cirrhosis with severe varices. Trace free fluid. 2. Bowel containing ventral hernia without bowel obstruction. 3. Numerous gallstones. 4. Moderate right effusion with compressive atelectasis. 5. Gynecomastia. 6. Mild compression fracture through superior plate of T12 with mild retropulsion. Sandeep Morgan MD Abdomen X-Ray 08/19/17 0000 Signed Impressions: Service Date/Time: Saturday, August 19, 2017 21:58 - CONCLUSION: Dobbhoff catheter tip is at the GE junction. Daniel Sawyer MD PE at Discharge GENERAL: Well-developed, well-nourished male. SKIN: Warm and dry. Jaundice EYES: Positive scleral icterus. No injection or drainage. CARDIOVASCULAR: Regular rate and rhythm. RESPIRATORY: No accessory muscle use. Diminished in bases. No wheezing or crackles GASTROINTESTINAL: Abdomen soft, non-tender, nondistended. Positive bowel sounds , no rebound, no guarding MUSCULOSKELETAL: Extremities without clubbing, cyanosis, or edema. No obvious deformities. NEUROLOGICAL: Awake, alert, following commands appropriately however confused at times. Sensory and Motor grossly within normal limits. Hospital Course AMS/Hepatic Encephalopathy Alcoholic cirrhosis of liver with ascites and pleural effusion - Continue lactulose 30 mL twice a day. Hold nadolol, Lasix and spironolactone in view of hypotension Head CT unremarkable. EEG completed. Suspect seizure vs hepatic encephalopathy with question of underlying infection. Per patient's patient has had a Pleurx catheter however has pulled out twice before for recurrent right pleural effusion. Status post US guided right thoracentesis with IR on 08/20 with drainage of 200 cc of pleural fluid. Passed swallow eval, continue soft mechanical diet. Lactulose twice a day. Follow LFTs. Appears to have advanced liver cirrhosis. GI consult requested and has signed off - Empiric antibiotic coverage started in ICU with IV Zosyn, vancomycin IV single dose. No evidence of infection, afebrile, no leucocytosis, neg UA. Blood cultures no growth in 4 days plan to DC abx 08/24 if patient remains stable - Access: Right subclavian central line placed by ER physician on 08/19/17, will need to be DC'd prior to DC - Prognosis appears poor. Palliative care is also following this patient. Patient and his want continued aggressive care despite his poor prognosis and end stage cirrhosis. - Prophylaxis: PPI/SCDs. Hold subcutaneous heparin or Lovenox in view of concern for bleeding. 08/24/17 - Pt continues to appear stable - blood pressure remains boarderline despite use of TID midodrine - cannot resume spironolactone at this time d/t BP - anticipate d/c to SNF 08/25 - Hospice would be appropriate, but pt does NOT want hospice at this time. 08/25/17 Patient stable for DC to SNF, awaiting placement Alcoholic cirrhosis of liver with ascites see above Seizure disorder Continue home Lamotrigine 200 mg QHS Hypotension Off Levophed. Hold nadolol and spironolactone in view of hypotension. continue Midodrine 5 mg by mouth every 8 hourly Pt Condition on Discharge: Stable Discharge Disposition: Discharge to SNF Discharge Instructions DIET: Follow Instructions for: Heart Healthy Diet Activities you can perform: Regular-No Restrictions Follow up Referrals: Gastroenterology - 2 Weeks with Deacon Cramer MD PCP Follow-up - [address] High New Medications: Midodrine (Midodrine) 5 Mg Tab 5 MG PO TID for blood pressure, #90 TAB 0 Refills Tramadol (Ultram) 50 Mg Tab 50 MG PO Q6H PRN for pain 1-10, #90 TAB 0 Refills [Lactulose Liq] () 30 ML SYRP 30 ML PO BID for ammonia, #60 EACH 0 Refills Continued Medications: Cholecalciferol (Vitamin D3) 50,000 Unit Cap 37015 UNITS PO Q7D for Nutritional Supplement, #30 CAP 0 Refills Folic Acid (Folic Acid) 0.4 Mg Tab 1000 MCG PO DAILY for Nutritional Supplement, TAB 0 Refills Ipratropium-Albuterol Neb (Duoneb) 0.5-2.5 Mg/3 Ml Neb 1 NEBULE INH Q4HR NEB for SHORTNESS OF BREATH, #120 NEBULE 0 Refills Lamotrigine (Lamotrigine) 200 Mg Tab 200 MG PO HS for Control Seizures, #30 TAB 0 Refills Ondansetron (Zofran) 4 Mg Tab 4 MG PO Q8HR PRN for NAUSEA OR VOMITING, TAB 0 Refills Ranitidine (Zantac) 150 Mg Tab 150 MG PO DAILY for Reduce Stomach Acid, #30 TAB 0 Refills Discontinued Medications: Furosemide (Lasix) 20 Mg Tab 20 MG PO BID for liver failure, #60 TAB 0 Refills Lactulose Liq (Lactulose Liq) 10 Gm/15 Ml Soln 30 ML PO Q6H PRN for Nutritional Supplement, ML 0 Refills Nadolol (Nadolol) 20 Mg Tab 20 MG PO DAILY, #30 TAB 0 Refills Spironolactone (Spironolactone) 50 Mg Tab 50 MG PO BIDPC, #60 TAB 0 Refills [Lactulose Liq] () 30 ML SYRP 30 ML PO QID for encephalopathy for 30 Days Additional Information Patient examined. Assessment and plan formulated with Bernice Spangler PA-C. I agree with the above. Bernice Spangler Aug 25, 2017 11:12 Ryan Wright DO Aug 28, 2017 21:09
--- NOTE | 2017-08-25 11:12 | HHI.DCPOC ---
Discharge Care Plan Diagnosis: (1) Confusion (2) Hepatic encephalopathy (3) Alcoholic cirrhosis of liver with ascites (4) Pleural effusion associated with hepatic disorder Goals to Promote Your Health * To prevent worsening of your condition and complications * To maintain your health at the optimal level Directions to Meet Your Goals Take your medications as prescribed Follow your dietary instruction Follow activity as directed Keep your appointments as scheduled Take your immunizations and boosters as scheduled If your symptoms worsen call your PCP, if no PCP go to Urgent Care Center or Emergency Room Smoking is Dangerous to Your Health. Avoid second hand smoke Call the 24-hour hour crisis hotline for domestic abuse at Bernice Spangler Aug 25, 2017 11:12 Ryan Wright DO Aug 25, 2017 23:11
--- NOTE | 2017-08-25 16:36 | HHI.PR ---
Subjective Remarks Patient offers no new complaints Objective Vitals Vital Signs Date Time Temp Pulse Resp B/P (MAP) Pulse Ox O2 Delivery O2 Flow Rate FiO2 08/25/17 13:56 98.6 95 17 93/50 (64) 99 08/25/17 08:08 98.0 99 18 107/56 (73) 100 08/25/17 04:00 97.5 89 20 93/59 (70) 98 08/25/17 04:00 Room Air 08/25/17 00:00 98.1 86 20 103/55 (71) 100 08/25/17 00:00 Room Air 08/24/17 23:40 98 08/24/17 20:00 97.4 82 16 104/63 (77) 100 08/24/17 20:00 Room Air 08/24/17 17:26 98 21 Result Diagram: 08/21/17 0400 08/21/17 0400 Imaging Last Impressions Chest X-Ray 08/24/17 0600 Signed Impressions: Service Date/Time: Thursday, August 24, 2017 08:21 - CONCLUSION: 1. Small right pleural effusion. 2. Right basilar atelectasis. 3. Elevation of the right hemidiaphragm. 4. Cardiomegaly. Usman Umana MD Thoracentesis Ultrasound 08/20/17 0000 Signed Impressions: Service Date/Time: Sunday, August 20, 2017 11:38 - CONCLUSION: Uncomplicated ultrasound guided thoracentesis. Usman Umana MD Head CT 08/19/17 0000 Signed Impressions: Service Date/Time: Saturday, August 19, 2017 14:13 - CONCLUSION: 1. No acute intracranial abnormalities. No significant change from July 05. Sandeep Morgan MD Abdomen/Pelvis CT 08/19/17 0000 Signed Impressions: Service Date/Time: Saturday, August 19, 2017 15:39 - CONCLUSION: 1. Liver cirrhosis with severe varices. Trace free fluid. 2. Bowel containing ventral hernia without bowel obstruction. 3. Numerous gallstones. 4. Moderate right effusion with compressive atelectasis. 5. Gynecomastia. 6. Mild compression fracture through superior plate of T12 with mild retropulsion. Sandeep Morgan MD Abdomen X-Ray 08/19/17 0000 Signed Impressions: Service Date/Time: Miguel, August 19, 2017 21:58 - CONCLUSION: Dobbhoff catheter tip is at the GE junction. Daniel Sawyer MD Objective Remarks GENERAL: Well-developed, well-nourished male. SKIN: Warm and dry. Jaundice EYES: Positive scleral icterus. No injection or drainage. CARDIOVASCULAR: Regular rate and rhythm. RESPIRATORY: No accessory muscle use. Diminished in bases. No wheezing or crackles GASTROINTESTINAL: Abdomen soft, non-tender, nondistended. Positive bowel sounds , no rebound, no guarding MUSCULOSKELETAL: Extremities without clubbing, cyanosis, or edema. No obvious deformities. NEUROLOGICAL: Awake, alert, following commands appropriately however confused at times. Sensory and Motor grossly within normal limits. Procedures US guided right thoracentesis with IR on 08/20 with drainage of 200 cc of pleural fluid. A/P Problem List: (1) Hepatic encephalopathy ICD Codes: K72.90 - Hepatic failure, unspecified without coma Status: Chronic Plan: AMS/Hepatic Encephalopathy Alcoholic cirrhosis of liver with ascites and pleural effusion - Continue lactulose 30 mL twice a day. Hold nadolol, Lasix and spironolactone in view of hypotension Head CT unremarkable. EEG completed. Suspect seizure vs hepatic encephalopathy with question of underlying infection. Per patient's patient has had a Pleurx catheter however has pulled out twice before for recurrent right pleural effusion. Status post US guided right thoracentesis with IR on 08/20 with drainage of 200 cc of pleural fluid. Passed swallow eval, continue soft mechanical diet. Lactulose twice a day. Follow LFTs. Appears to have advanced liver cirrhosis. GI consult requested and has signed off - Empiric antibiotic coverage started in ICU with IV Zosyn, vancomycin IV single dose. No evidence of infection, afebrile, no leucocytosis, neg UA. Blood cultures no growth in 4 days plan to DC abx 08/24 if patient remains stable - Access: Right subclavian central line placed by ER physician on 08/19/17, will need to be DC'd prior to DC - Prognosis appears poor. Palliative care is also following this patient. Patient and his want continued aggressive care despite his poor prognosis and end stage cirrhosis. - Prophylaxis: PPI/SCDs. Hold subcutaneous heparin or Lovenox in view of concern for bleeding. 08/24/17 - Pt continues to appear stable - blood pressure remains boarderline despite use of TID midodrine - cannot resume spironolactone at this time d/t BP - anticipate d/c to SNF 08/25 - Hospice would be appropriate, but pt does NOT want hospice at this time. 08/25/17 Patient stable for DC to SNF, awaiting placement (2) Alcoholic cirrhosis of liver with ascites ICD Codes: K70.31 - Alcoholic cirrhosis of liver with ascites Status: Chronic Plan: see above (3) Seizure disorder ICD Codes: G40.909 - Epilepsy, unspecified, not intractable, without status epilepticus Status: Chronic Plan: Continue home Lamotrigine 200 mg QHS (4) Hypotension ICD Codes: I95.9 - Hypotension, unspecified Status: Acute Plan: Off Levophed. Hold nadolol and spironolactone in view of hypotension. continue Midodrine 5 mg by mouth every 8 hourly Assessment and Plan Patient examined. Assessment and plan formulated with Bernice Spangler PA-C. I agree with the above. Pt is comfortable. No new clinical complaints. I have written for discharge to SNF. Problem Qualifiers (1) Hypotension: Qualified Codes: I95.9 - Hypotension, unspecified Bernice Spangler Aug 25, 2017 16:36 Ryan Wright DO Aug 25, 2017 23:11
[2017-08-26 00:34] VITALS: BP 98/69; PULSE 88; RESP 19; TEMP 97.8; O2SAT 99
[2017-08-26] MEDS: CHLORHEXIDINE GLUCONATE 2 % 1 PACK (2 CLOTHS) TOP SCH (02:34)
[2017-08-26] MEDS: traMADol HCL 50 MG TAB PO PRN (03:42)
[2017-08-26 04:00] VITALS: BP 100/69; PULSE 97; RESP 19; TEMP 98; O2SAT 97
[2017-08-26 08:08] VITALS: BP 98/56; PULSE 97; RESP 20; TEMP 97.8; O2SAT 98
[2017-08-26] MEDS: MIDODRINE 5 MG TAB PO SCH ×2 (09:22→13:40)
[2017-08-26] MEDS: PANTOPRAZOLE SODIUM 40 MG VIAL IV PUSH SCH (09:22)
[2017-08-26] MEDS: DOCUSATE SODIUM 50 MG/SENNA 8.6 MG TAB PO SCH (09:22)
[2017-08-26] MEDS: LACTULOSE SYRUP 20 GM/30 ML CUP DOBHOFF SCH (09:22)
[2017-08-26] MEDS: SODIUM CHLORIDE 0.9% FLUSH 10 ML FLUSH IV FLUSH SCH (09:22)
[2017-08-26 12:08] VITALS: BP 95/56; PULSE 95; RESP 20; TEMP 98.1; O2SAT 99
== END 2017-08-26 17:05 | DRG 432 ==
LOC: NEPC 12:59 → NEDA 17:08 → N03B 18:48 → N04A 08-22 22:22
PROVIDERS: ADMIT Hospitalist; ATTEND Hospitalist
PROC: 05H533Z Insertion of Infusion Device into Right Subclavian Vein, Percutaneous Approach (ICD-10-PCS; principal; 2017-08-19)
PROC: 0W993ZZ Drainage of Right Pleural Cavity, Percutaneous Approach (ICD-10-PCS; 2017-08-20)
DX: K70.40 Alcoholic hepatic failure without coma (principal); N18.6 End stage renal disease; K70.31 Alcoholic cirrhosis of liver with ascites; J90 Pleural effusion, not elsewhere classified; D68.9 Coagulation defect, unspecified; I95.9 Hypotension, unspecified; K76.6 Portal hypertension; D69.6 Thrombocytopenia, unspecified; I85.00 Esophageal varices without bleeding; J98.11 Atelectasis; R41.82 Altered mental status, unspecified; K80.20 Calculus of gallbladder without cholecystitis without obstruction; G47.33 Obstructive sleep apnea (adult) (pediatric); F10.20 Alcohol dependence, uncomplicated; G40.909 Epilepsy, unspecified, not intractable, without status epilepticus; K43.9 Ventral hernia without obstruction or gangrene; Z51.5 Encounter for palliative care; Z87.891 Personal history of nicotine dependence
CPT/HCPCS: 32555; 36556; 70450; 71045; 71046; 74018; 74177; 80053; 80175; 81001; 82140; 82150; 82248; 82550; 82945; 82948; 83605; 83615; 83735; 83880; 83986; 84100; 84157; 84484; 85007; 85025; 85027; 85610; 85730; 87040; 87070; 87205; 89051; 93005; 93306; 94640; 94664; 95819; 96360; 96361; C1729; C9113; J1200; J1630; J2405; J2543; J3370; J3480; J7030; J7050; P9045; P9612; Q9967